=== PATIENT | male | born 1940 | race Caucasian/White ===

== ENCOUNTER 2019-08-24 20:51 | Inpatient (IN) | payer MEDICARE, MEDICAID ==
[~2019-08-24] VITALS: Ht 177.8 cm; Wt 99.4 kg
[~2019-08-24 20:51] MED LIST: ACETAMINOPHEN325 M1 ORAL; COLACE100 MG PO; LITHIUM CARBON150 MG ORAL; MAALOX525 MG/11 PO; MILK OF MA2400 MG/10 PO; MULTIVITAMINS1 EAC6 PO; ZYPREXA10 MG ORAL
[2019-08-24 20:55] VITALS: BP 114/61
--- NOTE | 2019-08-24 20:55 | NUR ---
ED Nurse Note: Patient brought in by ambulance from [facility] d/t fever and decreased oral intake. Patient aao x 4 and ambulatory. Patient temperature at assessment 101.3 F. Established IV line on Left AC 20g. All blood draw sent to lab. Patient changed into gown and placed on alarm security or surveillance monitor. No acute distress noted.
[2019-08-24] MEDS ORDERED: Vancomycin 1.5 GM in NS 275 ML IVPB ONE (21:00)
[2019-08-24] MEDS ORDERED: Cefepime HCl 2 GM in NS 110 ML IV ONE (21:00)
--- NOTE | 2019-08-24 21:18 | NUR ---
ED Nurse Note: Xray at bedside.
--- NOTE | 2019-08-24 21:26 | NUR ---
ED Nurse Note: Started Maxipime. Vancomycin held d/t unknown IV compatibility. Will start vancomycin once maxipime is completed.
--- NOTE | 2019-08-24 21:37 | NUR ---
ED Nurse Note: Upon assessment, patient has left upper arm growth, skin intact. per patient, it's a growth, unknown etiology.
--- NOTE | 2019-08-24 21:40 | NUR ---
ED Nurse Note: Patient provided with urinal. Unable to provide urine sample at this time.
[2019-08-24 21:49] LABS: EOSINOPHILS % (AUTO) 0.7 % (0.0-3.0); HEMATOCRIT 42.2 % (42.0-52.0); HEMOGLOBIN 13.7 G/DL (14.2-18.0); LYMPHOCYTES % (AUTO) 27.6 % (20.0-45.0); MEAN CORPUSCULAR VOLUME 94 FL (80-99); MONOCYTES % (AUTO) 10.9 % (1.0-10.0); NEUTROPHILS % (AUTO) 59.8 % (45.0-75.0); PLATELET COUNT 134 K/UL (150-450); RED BLOOD COUNT 4.47 M/UL (4.70-6.10); WHITE BLOOD COUNT 5.1 K/UL (4.8-10.8)
--- NOTE | 2019-08-24 21:56 | NUR ---
ED Nurse Note: COVID, MRSA, VRE, flu swabs, and urine collected and sent to lab.
--- NOTE | 2019-08-24 22:02 | Diagnostic Imaging Report ---
EXAM: XR Chest, 1 View CLINICAL HISTORY: COUGH TECHNIQUE: Frontal view of the chest. COMPARISON: Chest radiograph dated 09/08/12. FINDINGS: Lungs: There is bibasilar subsegmental atelectasis. No focal consolidation. Pleural space: Unremarkable. No pneumothorax. Heart: Unremarkable. No cardiomegaly. Mediastinum: Unremarkable. Bones/joints: Degenerative changes of the thoracic spine. IMPRESSION: No radiograph evidence of acute cardiac pulmonary disease. Bibasilar subsegmental atelectasis.
[2019-08-24 22:19] LABS: SODIUM 137 MMOL/L (136-145)
--- NOTE | 2019-08-24 22:19 | Emergency Room Report ---
History of Present Illness General Chief Complaint: Fever Source: Patient, Medical Record, EMS, PMD Present Illness HPI This is an 79-year-old [facility] He has a history of hypertension and psychiatric history. He presents with chief plaint of fever. Onset today. He was [facility]. long-term has multiple patient positive for COVID19. He also has a cough and congestion. Denies any other complaint. Patient is very hard of hearing so history is limited. He denies any chest pain. No nausea vomiting or diarrhea. Allergies: Coded Allergies: No Known Allergies (Verified , 06/19/07) COVID-19 Screening Contact w/high risk pt: Yes Recent Travel to affected area: No Experienced COVID-19 symptoms?: Yes COVID-19 symptoms experienced: Fever (T>100.4F or >38C) Patient History Past Medical History: see triage record, old chart reviewed, HTN Past Surgical History: other Pertinent Family History: none Social History: Denies: smoking Immunizations: UTD Reviewed Nursing Documentation: PMH: Agreed; PSxH: Agreed Nursing Documentation-PMH Hx Cardiac Problems: Yes Hx COPD: Yes Hx Diabetes: Yes Hx Cancer: No Hx Gastrointestinal Problems: Yes - Umbilical Hernia Hx Neurological Problems: No Review of Systems Constitutional: Reports: fever Eye: Denies: eye pain, blurred vision ENT: Denies: ear pain, nose congestion, throat swelling Respiratory: Reports: cough, shortness of breath Cardiovascular: Denies: chest pain, palpitations Gastrointestinal: Denies: abdominal pain, diarrhea, nausea, vomiting Musculoskeletal: Denies: back pain, joint pain Skin: Denies: rash Neurological: Denies: headache, numbness Endocrine: Denies: increased thirst, increased urine Hematologic/Lymphatic: Denies: easy bruising All Other Systems: negative except mentioned in HPI Physical Exam Vital Signs Date Time Temp Pulse Resp B/P (MAP) Pulse Ox O2 Delivery O2 Flow Rate FiO2 08/24/19 20:52 100.8 96 20 130/72 (91) 94 Room Air Vitals with fever Sp02 EP Interpretation: reviewed, normal General Appearance: well appearing, no apparent distress, alert Head: normocephalic, atraumatic Eyes: bilateral eye PERRL, bilateral eye EOMI ENT: hearing grossly normal, normal pharynx Neck: full range of motion, supple, no meningismus Respiratory: chest non-tender, lungs clear, normal breath sounds Cardiovascular #1: regular rate, rhythm, no murmur Gastrointestinal: normal bowel sounds, non tender, no mass, no organomegaly, no bruit, non-distended Musculoskeletal: back normal, normal range of motion Neurologic: alert, grossly normal Psychiatric: mood/affect normal Procedures Critical Care Time Critical Care Time Critical care is mandated in this patient who presented with sepsis secondary to UTI and suspected COVID-19 infection. Patient require my urgent intervention to attenuate the risks of metabolic collapse which may lead to cardiovascular collapse and . Critical care time is 35 minutes excluding any reportable procedure. Critical care time included evaluation, multiple reevaluation, looking at old charts, interpreting laboratory and diagnostic data , discussing case with patient and family and consultants, and charting. Medical Decision Making Diagnostic Impression: Primary Impression: Sepsis Qualified Codes: A41.9 - Sepsis, unspecified organism Additional Impressions: UTI (urinary tract infection) Qualified Codes: N30.00 - Acute cystitis without hematuria Suspected 2019 novel coronavirus infection ER Course Patient presents with a fever and mild decrease in oxygenation from baseline. He also have a slight cough. He is from a [facility] that has multiple patient positive for COVID 19 infection. He is at high risk for infection. We also has Viet tract infection. Antibiotics started. Vital signs are stable. Fluids given. Will admit for IV monitoring and further work-up. I discussed the case with Dr. Alvarado for admission. EKG Diagnostic Results Rate: normal Rhythm: NSR ST Segments: no acute changes Rhythm Strip Diag. Results EP Interpretation: yes Rate: 85 Rhythm: NSR, no PVC's, no ectopy Chest X-Ray Diagnostic Results Chest X-Ray Diagnostic Results : Chest X-Ray Ordered: Yes # of Views/Limited/Complete: 1 View Indication: Shortness of Breath EP Interpretation: Yes Interpretation: no effusion, no pneumothorax, no acute cardiopulmonary disease, other - Atelectasis at the bases Impression: Other - atelectasis at bases Electronically Signed by: Aleksey Degroot MD Last Vital Signs Date Time Temp Pulse Resp B/P (MAP) Pulse Ox O2 Delivery O2 Flow Rate FiO2 08/24/19 20:55 101.3 89 19 114/61 93 Room Air Status: improved Disposition: ADMITTED INPATIENT Condition: Serious Aleksey Degroot MD Aug 24, 2019:19
[2019-08-24 22:20] LABS: ALANINE AMINOTRANSFERASE 26 U/L (12-78); ANION GAP 11 mmol/L (5-15); ASPARTATE AMINO TRANSFERASE 21 U/L (15-37); BILIRUBIN,TOTAL 0.4 MG/DL (0.2-1.0); BLOOD UREA NITROGEN 22 mg/dL (7-18); CALCIUM 8.2 MG/DL (8.5-10.1); CARBON DIOXIDE 24 MMOL/L (21-32); CHLORIDE 102 MMOL/L (98-107); CREATINE KINASE 96 U/L (26-308); CREATININE 1.7 MG/DL (0.55-1.30); PHOSPHORUS 3.2 MG/DL (2.5-4.9); POTASSIUM 4.1 MMOL/L (3.5-5.1)
[2019-08-24 22:21] LABS: ALBUMIN 3.2 G/DL (3.4-5.0); ALBUMIN/GLOBULIN RATIO 0.8 (1.0-2.7); ALKALINE PHOSPHATASE 77 U/L (46-116)
[2019-08-24 22:24] LABS: APPEARANCE,URINE CLEAR; BILIRUBIN, URINE NEGATIVE (NEGATIVE); COLOR,URINE YELLOW; GLUCOSE, URINE (UA) NEGATIVE (NEGATIVE); KETONES,URINE NEGATIVE (NEGATIVE); LEUKOCYTE ESTERASE ,URINE 1+ (NEGATIVE); NITRITE,URINE NEGATIVE (NEGATIVE); PH,URINE 5 (4.5-8.0); PROTEIN,URINE 1+ (NEGATIVE); UROBILINOGEN,URINE NORMAL MG/DL (0.0-1.0)
[2019-08-24] MEDS ORDERED: Azithromycin 500 MG in NS 275 ML IV ONE (22:30)
--- NOTE | 2019-08-24 23:20 | Emergency Room Report ---
Sepsis Event Note Evaluation Current Stage of Sepsis: Sepsis Possible Source: Pulmonary, Genitourinary Focused Exam Allergies: Coded Allergies: No Known Allergies (Verified , 06/19/07) Date Exam Occurred: Aug 24, 2019 Time Exam Occurred: 23:20 Laboratory Studies Laboratory Tests Test 08/24/19 21:03 08/24/19 21:48 White Blood Count 5.1 K/UL (4.8-10.8) Red Blood Count 4.47 M/UL (4.70-6.10) L Hemoglobin 13.7 G/DL (14.2-18.0) L Hematocrit 42.2 % (42.0-52.0) Mean Corpuscular Volume 94 FL (80-99) Mean Corpuscular Hemoglobin 30.6 PG (27.0-31.0) Mean Corpuscular Hemoglobin Concent 32.5 G/DL (32.0-36.0) Red Cell Distribution Width 13.0 % (11.6-14.8) Platelet Count 134 K/UL (150-450) L Mean Platelet Volume 9.1 FL (6.5-10.1) Neutrophils (%) (Auto) 59.8 % (45.0-75.0) Lymphocytes (%) (Auto) 27.6 % (20.0-45.0) Monocytes (%) (Auto) 10.9 % (1.0-10.0) H Eosinophils (%) (Auto) 0.7 % (0.0-3.0) Basophils (%) (Auto) 1.0 % (0.0-2.0) Prothrombin Time 10.8 SEC (9.30-11.50) Prothromb Time International Ratio 1.0 (0.9-1.1) Activated Partial Thromboplast Time 30 SEC (23-33) Sodium Level 137 MMOL/L (136-145) Potassium Level 4.1 MMOL/L (3.5-5.1) Chloride Level 102 MMOL/L (98-107) Carbon Dioxide Level 24 MMOL/L (21-32) Anion Gap 11 mmol/L (5-15) Blood Urea Nitrogen 22 mg/dL (7-18) H Creatinine 1.7 MG/DL (0.55-1.30) H Estimat Glomerular Filtration Rate 39.0 mL/min (>60) Glucose Level 189 MG/DL (74-106) H Lactic Acid Level 1.30 mmol/L (0.4-2.0) Calcium Level 8.2 MG/DL (8.5-10.1) L Phosphorus Level 3.2 MG/DL (2.5-4.9) Magnesium Level 1.6 MG/DL (1.8-2.4) L Total Bilirubin 0.4 MG/DL (0.2-1.0) Aspartate Amino Transf (AST/SGOT) 21 U/L (15-37) Alanine Aminotransferase (ALT/SGPT) 26 U/L (12-78) Alkaline Phosphatase 77 U/L (46-116) Total Creatine Kinase 96 U/L (26-308) Troponin I 0.007 ng/mL (0.000-0.056) Pro-B-Type Natriuretic Peptide pg/mL (0-125) Total Protein 7.0 G/DL (6.4-8.2) Albumin 3.2 G/DL (3.4-5.0) L Globulin 3.8 g/dL Albumin/Globulin Ratio 0.8 (1.0-2.7) L Lipase 263 U/L (73-393) Urine Color Yellow Urine Appearance Clear Urine pH 5 (4.5-8.0) Urine Specific [place] 1.020 (1.005-1.035) Urine Protein 1+ (NEGATIVE) H Urine Glucose (UA) Negative (NEGATIVE) Urine Ketones Negative (NEGATIVE) Urine Blood 1+ (NEGATIVE) H Urine Nitrite Negative (NEGATIVE) Urine Bilirubin Negative (NEGATIVE) Urine Urobilinogen Normal MG/DL (0.0-1.0) Urine Leukocyte Esterase 1+ (NEGATIVE) H Urine RBC 0-2 /HPF (0 - 0) H Urine WBC 5-10 /HPF (0 - 0) H Urine Squamous Epithelial Cells Few /LPF (NONE/OCC) Urine Bacteria Moderate /HPF (NONE) H Vital Signs Last 24 Hour Vital Signs Date Time Temp Pulse Resp B/P (MAP) Pulse Ox O2 Delivery O2 Flow Rate FiO2 08/24/19 20:55 101.3 89 19 114/61 93 Room Air 08/24/19 20:52 100.8 96 20 130/72 (91) 94 Room Air Respiratory Exam: Clear Cardiovascular Exam: RRR Capillary Refill: Less Than 2 Seconds Peripheral Pulse: Strong Pulse Location: Radial Skin Exam: Normal Turgor Degroot,Aleksey MD Aug 24, 2019 23:20
--- NOTE | 2019-08-24 23:21 | NUR ---
HAND-OFF: Report given to KILLIAN Loyola. Plan of care endorsed.
--- NOTE | 2019-08-24 23:22 | NUR ---
ED Nurse Note: Received report from Lor DAILY. Pt alert and oriented x4, verbally responsive. Not in any distress. Will cont to monitor.
[2019-08-24] MEDS ORDERED: FLOMAX0.4 MG ORAL (23:39)
[2019-08-24] MEDS ORDERED: PROSCAR5 MG ORAL (23:39)
--- NOTE | 2019-08-24 23:52 | NUR ---
ED Nurse Note: Report given to KILLIAN Elizalde in telemetry.
[2019-08-24 23:55] VITALS: BP 115/68
--- NOTE | 2019-08-24 23:55 | NUR ---
TRANSFER TO FLOOR: Patient transferred to Telemetry. Report given to Fide DAILY. Pt alert and oriented x4, verbally responsive. No SOB. Sinus ryhthm. IV line on left Ac 20g patent and intact. All belongings sent with the patient.
--- NOTE | 2019-08-24 23:59 | Pulmonology Progress Note ---
Assessment/Plan Assessment/Plan Pulmonary Consultation HPI Patient is an 79-year-old man with a past medical history of hypertension and psychiatric illness. Noted to have fever today. His residential has multiple patients positive for COVID19. Patient has noted cough and congestion. Denies any other complaints. He denies any chest pain. No nausea vomiting or diarrhea. Patient is very hard of hearing so history is limited. Allergies: No Known Allergies Past Medical History: Hypertension, COPD, DM, BPH, Umbilical Hernia and Psychiatric illness Pertinent Family History: none Social History: Denies: smoking All Other Systems: negative except mentioned in HPI Physical Exam Vital Signs Noted Date Time Temp Pulse Resp B/P (MAP) Pulse Ox O2 Delivery O2 Flow Rate FiO2 08/24/19 20:52 100.8 96 20 130/72 (91) 94 Room Air General Appearance: well appearing, no apparent distress, alert Head: normocephalic, atraumatic Eyes: bilateral eye PERRL, bilateral eye EOMI ENT: hearing grossly normal, normal pharynx Neck: full range of motion, supple, no meningismus Respiratory: chest non-tender, lungs clear, normal breath sounds Cardiovascular: regular rate, rhythm, no murmur Gastrointestinal: normal bowel sounds, non tender, no mass, no organomegaly, no bruit, non-distended Musculoskeletal: back normal, normal range of motion Neurologic: alert, grossly normal Impression: UTI BPH Sepsis Suspected 2019 novel coronavirus infection COPD HTN DM Psychiatric Illness Plan: IV Antibiotics started. PTAmedications O2 PRN Albuterol PRN PPX Await culturres/viral studies EKG: Rate: normal Rhythm: NSR ST Segments: no acute changes Chest X-Ray: no effusion, no pneumothorax, no acute cardiopulmonary disease, other - Atelectasis at the bases Subjective ROS Limited/Unobtainable: No Constitutional: Reports: fever Allergies: Coded Allergies: No Known Allergies (Verified , 06/19/07) Objective Last 24 Hour Vital Signs Date Time Temp Pulse Resp B/P (MAP) Pulse Ox O2 Delivery O2 Flow Rate FiO2 08/24/19 20:55 101.3 89 19 114/61 93 Room Air 08/24/19 20:52 100.8 96 20 130/72 (91) 94 Room Air Laboratory Tests 08/24/19 21:03: White Blood Count 5.1, Red Blood Count 4.47L, Hemoglobin 13.7L, Hematocrit 42.2 , Mean Corpuscular Volume 94, Mean Corpuscular Hemoglobin 30.6, Mean Corpuscular Hemoglobin Concent 32.5, Red Cell Distribution Width 13.0, Platelet Count 134L, Mean Platelet Volume 9.1, Neutrophils (%) (Auto) 59.8, Lymphocytes ( %) (Auto) 27.6, Monocytes (%) (Auto) 10.9H, Eosinophils (%) (Auto) 0.7, Basophils (%) (Auto) 1.0, Prothrombin Time 10.8, Prothromb Time International Ratio 1.0, Activated Partial Thromboplast Time 30, Sodium Level 137, Potassium Level 4.1, Chloride Level 102, Carbon Dioxide Level 24, Anion Gap 11, Blood Urea Nitrogen 22H, Creatinine 1.7H, Estimat Glomerular Filtration Rate 39.0, Glucose Level 189H, Lactic Acid Level 1.30, Calcium Level 8.2L, Phosphorus Level 3.2, Magnesium Level 1.6L, Total Bilirubin 0.4, Aspartate Amino Transf ( AST/SGOT) 21, Alanine Aminotransferase (ALT/SGPT) 26, Alkaline Phosphatase 77, Total Creatine Kinase 96, Troponin I 0.007, Pro-B-Type Natriuretic Peptide , Total Protein 7.0, Albumin 3.2L, Globulin 3.8, Albumin/Globulin Ratio 0.8L, Lipase 263 08/24/19 21:48: Urine Color Yellow, Urine Appearance Clear, Urine pH 5, Urine Specific [place] 1.020, Urine Protein 1+H, Urine Glucose (UA) Negative, Urine Ketones Negative, Urine Blood 1+H, Urine Nitrite Negative, Urine Bilirubin Negative, Urine Urobilinogen Normal, Urine Leukocyte Esterase 1+H, Urine RBC 0-2H, Urine WBC 5- 10H, Urine Squamous Epithelial Cells Few, Urine Bacteria ModerateH Karthikeyan Morris MD Aug 24, 2019 23:59
[2019-08-25] MEDS ORDERED: Albuterol 90mcg Inhaler 8gm INH PRN (00:15)
[2019-08-25] MEDS: cefTRIAXone 1 GM in D5W 55 ML IVPB SCH (03:08)
[2019-08-25 08:00] VITALS: BP 124/59
--- NOTE | 2019-08-25 08:32 | NUR ---
NURSE NOTES: Received report from Diana Mendoza. Patient is standing in room, on room air, heading toward restroom, in no apparent distress, bed in lowest position, call light in bed.
[2019-08-25] MEDS ORDERED: Enoxaparin 40mg Inj SUBQ SCH ×2 (09:00)
[2019-08-25 10:38] LABS: BASOPHILS % (AUTO) 1.1 % (0.0-2.0); EOSINOPHILS % (AUTO) 0.2 % (0.0-3.0); HEMATOCRIT 39.2 % (42.0-52.0); HEMOGLOBIN 13.4 G/DL (14.2-18.0); LYMPHOCYTES % (AUTO) 17.5 % (20.0-45.0); MEAN CORPUSCULAR VOLUME 91 FL (80-99); MONOCYTES % (AUTO) 10.6 % (1.0-10.0); NEUTROPHILS % (AUTO) 70.6 % (45.0-75.0); PLATELET COUNT 120 K/UL (150-450); RED BLOOD COUNT 4.33 M/UL (4.70-6.10); RED CELL DISTRIBUTION WIDTH 11.6 % (11.6-14.8); WHITE BLOOD COUNT 5.6 K/UL (4.8-10.8)
[2019-08-25 10:51] LABS: ANION GAP 11 mmol/L (5-15); BLOOD UREA NITROGEN 15 mg/dL (7-18); CALCIUM 7.9 MG/DL (8.5-10.1); CARBON DIOXIDE 25 MMOL/L (21-32); CHLORIDE 105 MMOL/L (98-107); CREATININE 1.5 MG/DL (0.55-1.30); POTASSIUM 4.5 MMOL/L (3.5-5.1); SODIUM 140 MMOL/L (136-145)
[2019-08-25] MEDS ORDERED: NS 275ml ONE (11:30)
--- NOTE | 2019-08-25 19:34 | NUR ---
HAND-OFF: Report given to Rojelio Mercado RN. Patient laying on left side, sleeping, side rails up x 3, bed in lowest position, call light witin reach, depressed mood, on room air, saturating at 94%, in no apparent dsitress.
--- NOTE | 2019-08-25 19:35 | NUR ---
NURSE NOTES: Received report from Kyrie RN at tele unit. Pt is calm and comfortable. Patient is refusing tele box. Patient removes the box after RN reconnects the box. Call light is within reach. Bed alarm is on. Rails are up x3. Will continue to follow the plan of care.
[2019-08-25 20:00] VITALS: BP 119/59
--- NOTE | 2019-08-25 20:50 | Consultation ---
History of Present Illness General Chief Complaint: Fever Present Illness Allergies: Coded Allergies: No Known Allergies (Verified , 06/19/07) Medication History Scheduled Docusate Sodium* (Colace*), 200 MG PO DAILY, (Reported) Finasteride* (Proscar*), 5 MG ORAL DAILY, (Reported) Olanzapine* (Zyprexa*), 15 MG ORAL QHS, (Reported) Tamsulosin HCl (Flomax), 0.4 MG ORAL DAILY, (Reported) Scheduled PRN Acetaminophen* (Acetaminophen 325MG Tablet*), 650 MG ORAL Q4HR PRN, (Reported) Magnesium Hydroxide* (Milk Of Magnesia*), 30 ML PO DAILY PRN, (Reported) Discontinued Medications Bismuth Subsalicylate (Maalox), 30 ML PO Q4HR PRN, (Reported) Discontinued Reason: MD discontinued med [place] Carbonate* ([place]*), 150 MG ORAL QHS, (Reported) Discontinued Reason: MD discontinued med Multivitamin (Multivitamins), 1 EACH PO DAILY, (Reported) Discontinued Reason: MD discontinued med Patient History Healthcare decision maker Resuscitation status Full Code Advanced Directive on File Physical Exam Last 24 Hour Vital Signs Date Time Temp Pulse Resp B/P (MAP) Pulse Ox O2 Delivery O2 Flow Rate FiO2 08/25/19 16:00 100 08/25/19 12:00 94 08/25/19 09:00 Room Air 08/25/19 08:00 84 08/25/19 08:00 99.1 91 20 124/59 (80) 93 08/25/19 04:00 102 08/25/19 00:36 Room Air 08/24/19 23:55 101.3 92 18 115/68 95 Room Air 08/24/19 23:55 101.3 92 18 115/68 95 Room Air 08/24/19 23:21 89 19 Room Air 08/24/19 20:55 101.3 89 19 114/61 93 Room Air 08/24/19 20:52 100.8 96 20 130/72 (91) 94 Room Air Intake and Output 08/24/19 08/25/19 19:00 07:00 Intake Total 3445 ml Output Total 1000 ml Balance 2445 ml Intake Oral 400 ml IV Total 3045 ml Output Urine Total 1000 ml # Voids 3 Laboratory Tests Test 08/24/19 21:03 08/24/19 21:48 08/25/19 09:00 White Blood Count 5.1 K/UL (4.8-10.8) 5.6 K/UL (4.8-10.8) Red Blood Count 4.47 M/UL (4.70-6.10) L 4.33 M/UL (4.70-6.10) L Hemoglobin 13.7 G/DL (14.2-18.0) L 13.4 G/DL (14.2-18.0) L Hematocrit 42.2 % (42.0-52.0) 39.2 % (42.0-52.0) L Mean Corpuscular Volume 94 FL (80-99) 91 FL (80-99) Mean Corpuscular Hemoglobin 30.6 PG (27.0-31.0) 30.9 PG (27.0-31.0) Mean Corpuscular Hemoglobin Concent 32.5 G/DL (32.0-36.0) 34.1 G/DL (32.0-36.0) Red Cell Distribution Width 13.0 % (11.6-14.8) 11.6 % (11.6-14.8) Platelet Count 134 K/UL (150-450) L 120 K/UL (150-450) L Mean Platelet Volume 9.1 FL (6.5-10.1) 9.3 FL (6.5-10.1) Neutrophils (%) (Auto) 59.8 % (45.0-75.0) 70.6 % (45.0-75.0) Lymphocytes (%) (Auto) 27.6 % (20.0-45.0) 17.5 % (20.0-45.0) L Monocytes (%) (Auto) 10.9 % (1.0-10.0) H 10.6 % (1.0-10.0) H Eosinophils (%) (Auto) 0.7 % (0.0-3.0) 0.2 % (0.0-3.0) Basophils (%) (Auto) 1.0 % (0.0-2.0) 1.1 % (0.0-2.0) Prothrombin Time 10.8 SEC (9.30-11.50) Prothromb Time International Ratio 1.0 (0.9-1.1) Activated Partial Thromboplast Time 30 SEC (23-33) Sodium Level 137 MMOL/L (136-145) 140 MMOL/L (136-145) Potassium Level 4.1 MMOL/L (3.5-5.1) 4.5 MMOL/L (3.5-5.1) Chloride Level 102 MMOL/L (98-107) 105 MMOL/L (98-107) Carbon Dioxide Level 24 MMOL/L (21-32) 25 MMOL/L (21-32) Anion Gap 11 mmol/L (5-15) 11 mmol/L (5-15) Blood Urea Nitrogen 22 mg/dL (7-18) H 15 mg/dL (7-18) Creatinine 1.7 MG/DL (0.55-1.30) H 1.5 MG/DL (0.55-1.30) H Estimat Glomerular Filtration Rate 39.0 mL/min (>60) 45.0 mL/min (>60) Glucose Level 189 MG/DL (74-106) H 208 MG/DL (74-106) H Lactic Acid Level 1.30 mmol/L (0.4-2.0) Calcium Level 8.2 MG/DL (8.5-10.1) L 7.9 MG/DL (8.5-10.1) L Phosphorus Level 3.2 MG/DL (2.5-4.9) Magnesium Level 1.6 MG/DL (1.8-2.4) L Total Bilirubin 0.4 MG/DL (0.2-1.0) Aspartate Amino Transf (AST/SGOT) 21 U/L (15-37) Alanine Aminotransferase (ALT/SGPT) 26 U/L (12-78) Alkaline Phosphatase 77 U/L (46-116) Total Creatine Kinase 96 U/L (26-308) Troponin I 0.007 ng/mL (0.000-0.056) Pro-B-Type Natriuretic Peptide pg/mL (0-125) Total Protein 7.0 G/DL (6.4-8.2) Albumin 3.2 G/DL (3.4-5.0) L Globulin 3.8 g/dL Albumin/Globulin Ratio 0.8 (1.0-2.7) L Lipase 263 U/L (73-393) Urine Color Yellow Urine Appearance Clear Urine pH 5 (4.5-8.0) Urine Specific [place] 1.020 (1.005-1.035) Urine Protein 1+ (NEGATIVE) H Urine Glucose (UA) Negative (NEGATIVE) Urine Ketones Negative (NEGATIVE) Urine Blood 1+ (NEGATIVE) H Urine Nitrite Negative (NEGATIVE) Urine Bilirubin Negative (NEGATIVE) Urine Urobilinogen Normal MG/DL (0.0-1.0) Urine Leukocyte Esterase 1+ (NEGATIVE) H Urine RBC 0-2 /HPF (0 - 0) H Urine WBC 5-10 /HPF (0 - 0) H Urine Squamous Epithelial Cells Few /LPF (NONE/OCC) Urine Bacteria Moderate /HPF (NONE) H Microbiology Date/Time Source Procedure Growth Status 08/24/19 21:48 Urine,Clean Catch Urine Culture - Preliminary NO GROWTH Resulted Height (Feet): 5 Height (Inches): 10.00 Weight (Pounds): 220 Medications Current Medications Medications (Trade) Dose Ordered Sig/Abilio Route PRN Reason Start Time Stop Time Status Last Admin Dose Admin Acetaminophen (Tylenol) 650 mg EVERY 6 HOURS PRN ORAL Temp >100.5 08/25/19 00:15 09/24/19 00:14 08/25/19 04:32 Albuterol Sulfate (Proventil MDI) 2 puff Q4H PRN INH Shortness of Breath 08/25/19 00:15 11/23/19 00:14 Azithromycin 500 mg/Dextrose 275 ml @ 275 mls/hr Q24HRS IV 08/25/19 22:00 08/31/19 22:59 Ceftriaxone Sodium 1 gm/ Dextrose 55 ml @ 110 mls/hr Q24H IVPB 08/25/19 03:00 09/01/19 02:59 08/25/19 03:08 Enoxaparin Sodium (Lovenox) 40 mg DAILY SUBQ 08/25/19 09:00 11/23/19 08:59 08/25/19 08:48 Fluoxetine HCl (PROzac) 20 mg DAILY ORAL 08/26/19 09:00 09/25/19 08:59 Olanzapine (ZyPREXA) 20 mg BEDTIME ORAL 08/25/19 21:00 10/09/19 20:59 Tamsulosin HCl (Flomax) 0.4 mg QHS ORAL 08/25/19 21:00 09/24/19 20:59 Assessment/Plan Assessment/Plan: Hematology Consultation REQ : Louisa Rojas RFC: Thrombocytopenia ongoing Chief Complaint: Fever Source: Patient, Medical Record, EMS, PMD HPI This is an 79-year-old male from a [place] [facility]. He has a history of hypertension and psychiatric history. He presents with chief plaint of fever. Onset today. He was given Tylenol at the [place] [facility]. longterm has multiple patient positive for COVID19. He also has a cough and congestion. Denies any other complaint. Patient is very hard of hearing so history is limited. He denies any chest pain. No nausea vomiting or diarrhea. At this time, is very weak, most of hx obtained from chart, no significant shortness of breath. Allergies: No Known Allergies (Verified , 06/19/07) COVID-19 Screening Contact w/high risk pt: Yes Recent Travel to affected area: No Experienced COVID-19 symptoms?: Yes COVID-19 symptoms experienced: Fever (T>100.4F or >38C) Patient History Past Medical History: see triage record, old chart reviewed, HTN Past Surgical History: other Pertinent Family History: none Social History: Denies: smoking Immunizations: UTD Reviewed Nursing Documentation: PMH: Agreed; PSxH: Agreed Nursing Documentation-PMH Hx Cardiac Problems: Yes Hx COPD: Yes Hx Diabetes: Yes Hx Cancer: No Hx Gastrointestinal Problems: Yes - Umbilical Hernia Hx Neurological Problems: No ROS Constitutional: Reports: fever Eye: Denies: eye pain, blurred vision ENT: Denies: ear pain, nose congestion, throat swelling Respiratory: Reports: cough, shortness of breath Cardiovascular: Denies: chest pain, palpitations Gastrointestinal: Denies: abdominal pain, diarrhea, nausea, vomiting Musculoskeletal: Denies: back pain, joint pain Skin: Denies: rash Neurological: Denies: headache, numbness Endocrine: Denies: increased thirst, increased urine Hematologic/Lymphatic: Denies: easy bruising All Other Systems: negative except mentioned in HPI Physical Exam: Vitals: reviewed General: NAD HEENT: nc, at Neck: supple Chest: clear breath sounds bilaterally Cardiovascular: RRR, no s3, s4 Abdomen: soft, nontender, nd Extremities: no cce, normal range of motion Neuro: alert and oriented Labs: noted Imaging: reviewed Assessment and Recs: # Thrombocytopenia - potential causes multifactorial, evaluate liver and viral etiologies to begin, also could be related to underlying medications patient has received. --> Hep panel and HIV ordered --> US abd to evaluate for cirrhosis and hsm ordered --> Peripheral smear ordered to evaluate for blasts /schistocytes --> abx and other meds have been reviewed --> ok for ppx if plt >50k w/ either heparin or lovenox --> Transfuse if Plt < 20k and fever, or if Plt < 10k without fever -> plt trend 134-->120k # Anemia due to chronic disease --> trend as needed hgb 13 --> no evidence of hemolysis is noted # Sepsis r/o infection --> abx as needed # UTI (urinary tract infection) --> id eval # Suspected 2019 novel coronavirus infection --> abx, per id, o2,duonebs The timing of this note does not necessarily reflect the time of the patient was seen. Greatly appreciate consultation. Anival Peñaloza MD Aug 25, 2019 20:50
[2019-08-25] MEDS ORDERED: Azithromycin 500 MG in D5W 275 ML IV SCH (22:00)
--- NOTE | 2019-08-25 22:00 | Pulmonology Progress Note ---
Assessment/Plan Assessment/Plan Pulmonary Progress Note HPI Patient is an 79-year-old man with a past medical history of hypertension and psychiatric illness. Noted to have fever today. His longterm has multiple patients positive for COVID19. Patient has noted cough and congestion. Denies any other complaints. He denies any chest pain. No nausea vomiting or diarrhea. Patient is very hard of hearing so history is limited. Allergies: No Known Allergies Past Medical History: Hypertension, COPD, DM, BPH, Umbilical Hernia and Psychiatric illness Pertinent Family History: none Social History: Denies: smoking All Other Systems: negative except mentioned in HPI Physical Exam Vital Signs Noted General Appearance: well appearing, no apparent distress, alert Head: normocephalic, atraumatic Eyes: bilateral eye PERRL, bilateral eye EOMI ENT: hearing grossly normal, normal pharynx Neck: full range of motion, supple, no meningismus Respiratory: chest non-tender, lungs clear, normal breath sounds Cardiovascular: regular rate, rhythm, no murmur Gastrointestinal: normal bowel sounds, non tender, no mass, no organomegaly, no bruit, non-distended Musculoskeletal: back normal, normal range of motion Neurologic: alert, grossly normal Impression: UTI BPH Sepsis Suspected 2019 novel coronavirus infection COPD HTN DM Psychiatric Illness Plan: IV Antibiotics started. PTAmedications O2 PRN Albuterol PRN PPX Await cultures/viral studies EKG: Rate: normal Rhythm: NSR ST Segments: no acute changes Chest X-Ray: no effusion, no pneumothorax, no acute cardiopulmonary disease, other - Atelectasis at the bases Subjective ROS Limited/Unobtainable: No Allergies: Coded Allergies: No Known Allergies (Verified , 06/19/07) Objective Last 24 Hour Vital Signs Date Time Temp Pulse Resp B/P (MAP) Pulse Ox O2 Delivery O2 Flow Rate FiO2 08/25/19 16:00 100 08/25/19 12:00 94 08/25/19 09:00 Room Air 08/25/19 08:00 84 08/25/19 08:00 99.1 91 20 124/59 (80) 93 08/25/19 04:00 102 08/25/19 00:36 Room Air 08/24/19 23:55 101.3 92 18 115/68 95 Room Air 08/24/19 23:55 101.3 92 18 115/68 95 Room Air 08/24/19 23:21 89 19 Room Air Intake and Output 08/24/19 08/25/19 19:00 07:00 Intake Total 3445 ml Output Total 1000 ml Balance 2445 ml Intake Oral 400 ml IV Total 3045 ml Output Urine Total 1000 ml # Voids 3 Microbiology Date/Time Source Procedure Growth Status 08/24/19 21:48 Urine,Clean Catch Urine Culture - Preliminary NO GROWTH Resulted Laboratory Tests 08/25/19 09:00: White Blood Count 5.6, Red Blood Count 4.33L, Hemoglobin 13.4L, Hematocrit 39.2L , Mean Corpuscular Volume 91, Mean Corpuscular Hemoglobin 30.9, Mean Corpuscular Hemoglobin Concent 34.1, Red Cell Distribution Width 11.6, Platelet Count 120L, Mean Platelet Volume 9.3, Neutrophils (%) (Auto) 70.6, Lymphocytes ( %) (Auto) 17.5L, Monocytes (%) (Auto) 10.6H, Eosinophils (%) (Auto) 0.2, Basophils (%) (Auto) 1.1, Sodium Level 140, Potassium Level 4.5, Chloride Level 105, Carbon Dioxide Level 25, Anion Gap 11, Blood Urea Nitrogen 15, Creatinine 1.5H, Estimat Glomerular Filtration Rate 45.0, Glucose Level 208H, Calcium Level 7.9L Current Medications Medications (Trade) Dose Ordered Sig/Abilio Route PRN Reason Start Time Stop Time Status Last Admin Dose Admin Acetaminophen (Tylenol) 650 mg EVERY 6 HOURS PRN ORAL Temp >100.5 08/25/19 00:15 09/24/19 00:14 08/25/19 04:32 Albuterol Sulfate (Proventil MDI) 2 puff Q4H PRN INH Shortness of Breath 08/25/19 00:15 11/23/19 00:14 Azithromycin 500 mg/Dextrose 275 ml @ 275 mls/hr Q24HRS IV 08/25/19 22:00 08/31/19 22:59 Ceftriaxone Sodium 1 gm/ Dextrose 55 ml @ 110 mls/hr Q24H IVPB 08/25/19 03:00 09/01/19 02:59 08/25/19 03:08 Enoxaparin Sodium (Lovenox) 40 mg DAILY SUBQ 08/25/19 09:00 11/23/19 08:59 08/25/19 08:48 Fluoxetine HCl (PROzac) 20 mg DAILY ORAL 08/26/19 09:00 09/25/19 08:59 Olanzapine (ZyPREXA) 20 mg BEDTIME ORAL 08/25/19 21:00 10/09/19 20:59 Tamsulosin HCl (Flomax) 0.4 mg QHS ORAL 08/25/19 21:00 09/24/19 20:59 Karthikeyan Morris MD Aug 25, 2019 22:00
[2019-08-25] MEDS: OLANZapine 10mg tab ORAL SCH (22:18)
[2019-08-25] MEDS: Tamsulosin 0.4mg cap ORAL SCH (22:18)
--- NOTE | 2019-08-25 23:00 | Consultation ---
DATE OF CONSULTATION: 08/25/2019 INFECTIOUS DISEASES CONSULTATION CONSULTING PHYSICIAN: Toni Cooln MD. PRIMARY ATTENDING PHYSICIAN: Louisa Aburto MD. REASON FOR CONSULTATION: Suspected COVID-19 disease, fever. HISTORY OF PRESENT ILLNESS: The patient is an 79-year-old white male admitted yesterday from a nursing facility because of fever, cough, congestion. The patient had fever of up to 101.3 in the hospital. PAST MEDICAL HISTORY: Significant for obesity, psychiatric problem, gastroesophageal reflux disease. ALLERGIES: No known drug allergies. MEDICATIONS: Getting azithromycin, Flomax, enoxaparin, ceftriaxone, Tylenol, albuterol. SOCIAL HISTORY: Denies smoking. Single. REVIEW OF SYSTEMS: Very limited. The patient is uncooperative and does not want to answer questions. PHYSICAL EXAMINATION: VITAL SIGNS: Current temperature 99.1, pulse 84, blood pressure 124/59. GENERAL APPEARANCE: No acute distress, well developed, obese. HEART: Normal rate. LUNGS: Clear. ABDOMEN: Obese and soft. EXTREMITIES: No edema. NEUROLOGIC: Awake, alert, verbal, has depressed mood. LABORATORY AND DIAGNOSTIC DATA: WBC 5.6, hemoglobin 13.4, hematocrit 39.2, and platelets 120. He has slight lymphocytopenia today. UA showed wbc's of 5 to 10, leukocyte esterase 1+. Urine culture so far negative. Chest x-ray showed no acute cardiopulmonary disease, subsegmental atelectasis. IMPRESSION: 1. Fever and coughing, we will try to rule out COVID-19. 2. Pyuria, may have UTI. 3. BPH. 4. Hypertension. 5. Obesity. RECOMMENDATION: Continue with ceftriaxone. We will follow up the cultures and COVID-19 tests. At the end of my exam, I thank Dr. Aburto, for involving me in the care of this patient. Toni Colon M.D. DR: Nirmal JOB#: [id number] CC:
[2019-08-26] VITALS: BP 122/62
--- NOTE | 2019-08-26 01:30 | History and Physical Report ---
DATE OF ADMISSION: 08/24/2019 HISTORY OF PRESENT ILLNESS: The patient is very poor historian, has advanced psychosis, history of UTI and suspected COVID. Fever of 103 at the intermediate. The patient also had cough and is admitted for sepsis as well. The patient again is a poor historian, cannot get any history, but patient does complain of shortness of breath and cough. The patient also comes from a intermediate that has multiple cases of positive COVID. Denies any chills. Denies headache. Denies sore throat. PAST MEDICAL HISTORY: Schizophrenia, history of COPD, history of diabetes, history of hernia, constipation, and BPH. PAST SURGICAL HISTORY: None. SOCIAL HISTORY: He has history of smoking, but denies history of alcohol or drugs, comes from a intermediate. ALLERGIES: No known allergies. MEDICATIONS: Finasteride, olanzapine, Flomax and Colace. REVIEW OF SYSTEMS: HEENT: Denies headaches. RESPIRATORY: Reports shortness of breath and cough . CARDIOVASCULAR: Denies chest pain or orthopnea. GASTROINTESTINAL: Denies nausea, vomiting, or diarrhea. EXTREMITIES: Denies pain. Denies any speech pattern. PHYSICAL EXAMINATION: VITAL SIGNS: Temperature 99.1, pulse is 84, blood pressure 124/59. HEENT: PERRLA. NECK: Supple. CHEST: Clear to auscultation. CARDIOVASCULAR: Regular rate and rhythm. No murmurs or extra sounds. GASTROINTESTINAL: Soft, nontender, nondistended. No organomegaly. Moves extremities. Reflexes equal in both sides. LABORATORY DATA: WBC of 5.1, hemoglobin 13.7, platelet 134,000. Sodium 137, potassium 4.1, BUN of 22, creatinine 1.7, glucose of 189. ASSESSMENT AND PLAN: Respiratory insufficiency, urinary tract infection. I suspect COVID pneumonia, had fever at the intermediate. The patient also has a psychiatric history. I have consulted Dr. Colon, Dr. Morris, and Dr. Hernández to help with the management of the above-mentioned abnormalities symptoms and abnormal laboratory values. Louisa Aburto M.D. DR: FLOWER JOB#: [id number] CC:
--- NOTE | 2019-08-26 01:59 | Consultation ---
DATE OF CONSULTATION: HISTORY OF PRESENT ILLNESS: This is an 79-year-old male with a history of schizoaffective disorder, hypertension, who has been admitted to the hospital to rule out COVID-19, apparently at his facility [facility] many people have been infected. The patient has been expressing more depression and stated he wants to . He does not have any intention to end his life, however, wishes that he was . The patient is not having any plan or intention. He is having no family, no friends, and he is self responsible. He is able to answer the questions and is not confused. He is not endorsing any auditory or visual hallucination at the facility. He has been taking Zyprexa 15 mg at bedtime. PAST PSYCHIATRIC HISTORY: Schizoaffective disorder, history of psychiatric hospitalizations. PAST MEDICAL HISTORY: Significant for hypertension. ALLERGIES: No known drug allergies. SUBSTANCE ABUSE HISTORY: No known history of illicit drug use or alcohol. MENTAL STATUS EXAMINATION: The patient is alert and oriented to time, self, place, situation. Mood is depressed. Affect is constricted. Congruent mood. Thought process is concrete. Thought content, no suicidal or homicidal ideation. Cognition is intact. Insight and judgment is limited. ASSESSMENT: AXIS I: Schizoaffective disorder, depressed type. AXIS II: Deferred. AXIS III: As above. AXIS IV: Low to moderate. AXIS V: 50. PLAN: 1. Start the patient on Prozac 20 mg in the morning. 2. Zyprexa, will be increased to 20 h.s. 3. We will continue to follow and readjust the medications. Aryan Hernández M.D. DR: ANTONIO JOB#: [id number] CC:
[2019-08-26] MEDS: cefTRIAXone 1 GM in D5W 55 ML IVPB SCH (03:10)
[2019-08-26 04:00] VITALS: BP 131/66
--- NOTE | 2019-08-26 06:37 | Hematology/Onc Progress Note ---
Assessment/Plan Assessment/Plan Assessment and Recs: # Thrombocytopenia - potential causes multifactorial, evaluate liver and viral etiologies to begin, also could be related to underlying medications patient has received. --> Hep panel and HIV ordered --> US abd to evaluate for cirrhosis and hsm ordered --> Peripheral smear ordered to evaluate for blasts /schistocytes --> abx and other meds have been reviewed --> ok for ppx if plt >50k w/ either heparin or lovenox --> Transfuse if Plt < 20k and fever, or if Plt < 10k without fever -> plt trend 134-->120k # Anemia due to chronic disease --> trend as needed hgb 13 --> no evidence of hemolysis is noted # Sepsis r/o infection --> abx as needed # UTI (urinary tract infection) --> id eval # Suspected 2019 novel coronavirus infection --> abx, per id, o2,duonebs The timing of this note does not necessarily reflect the time of the patient was seen. Greatly appreciate consultation. Subjective Constitutional: Denies: no symptoms, chills, fever, malaise, weakness, other HEENT: Denies: no symptoms, eye pain, blurred vision, tearing, double vision, ear pain, ear discharge, nose pain, nose congestion, throat pain, throat swelling, mouth pain, mouth swelling, other Cardiovascular: Denies: no symptoms, chest pain, edema, irregular heart rate, lightheadedness, palpitations, syncope, other Respiratory: Denies: no symptoms, cough, shortness of breath, SOB with excertion, SOB at rest, sputum, wheezing, other Genitourinary: Denies: no symptoms, burning, discharge, frequency, flank pain, hematuria, incontinence, pain, urgency, other Neurologic/Psychiatric: Denies: no symptoms, anxiety, depressed, emotional problems, headache, numbness, paresthesia, pre-existing deficit, seizure, tingling, tremors, weakness, other Endocrine: Denies: no symptoms, excessive sweating, flushing, intolerance to cold, intolerance to heat, increased hunger, increased thirst, increased urine, unexplained weight gain, unexplained weight loss, other Hematologic/Lymphatic: Denies: no symptoms, anemia, easy bleeding, easy bruising, adenopathy, other Allergies: Coded Allergies: No Known Allergies (Verified , 06/19/07) Subjective 08/25 labs noted, cbc is pending from am, lower fever Objective Objective Current Medications Medications (Trade) Dose Ordered Sig/Abilio Route PRN Reason Start Time Stop Time Status Last Admin Dose Admin Acetaminophen (Tylenol) 650 mg EVERY 6 HOURS PRN ORAL Temp >100.5 08/25/19 00:15 09/24/19 00:14 08/25/19 04:32 Albuterol Sulfate (Proventil MDI) 2 puff Q4H PRN INH Shortness of Breath 08/25/19 00:15 11/23/19 00:14 Azithromycin 500 mg/Dextrose 275 ml @ 275 mls/hr Q24HRS IV 08/25/19 22:00 08/31/19 22:59 08/25/19 22:19 Ceftriaxone Sodium 1 gm/ Dextrose 55 ml @ 110 mls/hr Q24H IVPB 08/25/19 03:00 09/01/19 02:59 08/26/19 03:10 Enoxaparin Sodium (Lovenox) 40 mg DAILY SUBQ 08/25/19 09:00 11/23/19 08:59 08/25/19 08:48 Fluoxetine HCl (PROzac) 20 mg DAILY ORAL 08/26/19 09:00 09/25/19 08:59 Olanzapine (ZyPREXA) 20 mg BEDTIME ORAL 08/25/19 21:00 10/09/19 20:59 08/25/19 22:18 Tamsulosin HCl (Flomax) 0.4 mg QHS ORAL 08/25/19 21:00 09/24/19 20:59 08/25/19 22:18 Last 24 Hour Vital Signs Date Time Temp Pulse Resp B/P (MAP) Pulse Ox O2 Delivery O2 Flow Rate FiO2 08/26/19 04:00 87 08/26/19 04:00 98.4 86 20 131/66 (87) 96 08/26/19 00:00 98.6 81 20 122/62 (82) 94 08/26/19 00:00 96 08/25/19 21:00 Room Air 08/25/19 20:00 98.3 93 20 119/59 (79) 93 08/25/19 16:00 100 08/25/19 12:00 94 08/25/19 09:00 Room Air 08/25/19 08:00 84 4/19/20 08:00 99.1 91 20 124/59 (80) 93 08/25/19 04:00 102 08/25/19 00:36 Room Air 08/24/19 23:55 101.3 92 18 115/68 95 Room Air 08/24/19 23:55 101.3 92 18 115/68 95 Room Air 08/24/19 23:21 89 19 Room Air 08/24/19 20:55 101.3 89 19 114/61 93 Room Air 08/24/19 20:52 100.8 96 20 130/72 (91) 94 Room Air Intake and Output 08/25/19 08/26/19 19:00 07:00 Intake Total 975 ml Balance 975 ml Intake Oral 975 ml # Voids 5 # Bowel Movements 1 Labs Test 08/24/19 21:03 08/24/19 21:48 08/25/19 09:00 White Blood Count 5.1 K/UL (4.8-10.8) 5.6 K/UL (4.8-10.8) Red Blood Count 4.47 M/UL (4.70-6.10) 4.33 M/UL (4.70-6.10) Hemoglobin 13.7 G/DL (14.2-18.0) 13.4 G/DL (14.2-18.0) Hematocrit 42.2 % (42.0-52.0) 39.2 % (42.0-52.0) Mean Corpuscular Volume 94 FL (80-99) 91 FL (80-99) Mean Corpuscular Hemoglobin 30.6 PG (27.0-31.0) 30.9 PG (27.0-31.0) Mean Corpuscular Hemoglobin Concent 32.5 G/DL (32.0-36.0) 34.1 G/DL (32.0-36.0) Red Cell Distribution Width 13.0 % (11.6-14.8) 11.6 % (11.6-14.8) Platelet Count 134 K/UL (150-450) 120 K/UL (150-450) Mean Platelet Volume 9.1 FL (6.5-10.1) 9.3 FL (6.5-10.1) Neutrophils (%) (Auto) 59.8 % (45.0-75.0) 70.6 % (45.0-75.0) Lymphocytes (%) (Auto) 27.6 % (20.0-45.0) 17.5 % (20.0-45.0) Monocytes (%) (Auto) 10.9 % (1.0-10.0) 10.6 % (1.0-10.0) Eosinophils (%) (Auto) 0.7 % (0.0-3.0) 0.2 % (0.0-3.0) Basophils (%) (Auto) 1.0 % (0.0-2.0) 1.1 % (0.0-2.0) Prothrombin Time 10.8 SEC (9.30-11.50) Prothromb Time International Ratio 1.0 (0.9-1.1) Activated Partial Thromboplast Time 30 SEC (23-33) Sodium Level 137 MMOL/L (136-145) 140 MMOL/L (136-145) Potassium Level 4.1 MMOL/L (3.5-5.1) 4.5 MMOL/L (3.5-5.1) Chloride Level 102 MMOL/L (98-107) 105 MMOL/L (98-107) Carbon Dioxide Level 24 MMOL/L (21-32) 25 MMOL/L (21-32) Anion Gap 11 mmol/L (5-15) 11 mmol/L (5-15) Blood Urea Nitrogen 22 mg/dL (7-18) 15 mg/dL (7-18) Creatinine 1.7 MG/DL (0.55-1.30) 1.5 MG/DL (0.55-1.30) Estimat Glomerular Filtration Rate 39.0 mL/min (>60) 45.0 mL/min (>60) Glucose Level 189 MG/DL (74-106) 208 MG/DL (74-106) Lactic Acid Level 1.30 mmol/L (0.4-2.0) Calcium Level 8.2 MG/DL (8.5-10.1) 7.9 MG/DL (8.5-10.1) Phosphorus Level 3.2 MG/DL (2.5-4.9) Magnesium Level 1.6 MG/DL (1.8-2.4) Total Bilirubin 0.4 MG/DL (0.2-1.0) Aspartate Amino Transf (AST/SGOT) 21 U/L (15-37) Alanine Aminotransferase (ALT/SGPT) 26 U/L (12-78) Alkaline Phosphatase 77 U/L (46-116) Total Creatine Kinase 96 U/L (26-308) Troponin I 0.007 ng/mL (0.000-0.056) Pro-B-Type Natriuretic Peptide pg/mL (0-125) Total Protein 7.0 G/DL (6.4-8.2) Albumin 3.2 G/DL (3.4-5.0) Globulin 3.8 g/dL Albumin/Globulin Ratio 0.8 (1.0-2.7) Lipase 263 U/L (73-393) Urine Color Yellow Urine Appearance Clear Urine pH 5 (4.5-8.0) Urine Specific [place] 1.020 (1.005-1.035) Urine Protein 1+ (NEGATIVE) Urine Glucose (UA) Negative (NEGATIVE) Urine Ketones Negative (NEGATIVE) Urine Blood 1+ (NEGATIVE) Urine Nitrite Negative (NEGATIVE) Urine Bilirubin Negative (NEGATIVE) Urine Urobilinogen Normal MG/DL (0.0-1.0) Urine Leukocyte Esterase 1+ (NEGATIVE) Urine RBC 0-2 /HPF (0 - 0) Urine WBC 5-10 /HPF (0 - 0) Urine Squamous Epithelial Cells Few /LPF (NONE/OCC) Urine Bacteria Moderate /HPF (NONE) Height (Feet): 5 Height (Inches): 10.00 Weight (Pounds): 220 Objective Vitals: reviewed General: NAD HEENT: nc, at Neck: supple Chest: clear breath sounds bilaterally Cardiovascular: RRR, no s3, s4 Abdomen: soft, nontender, nd Extremities: no cce, normal range of motion Neuro: alert and oriented Anival Peñaloza MD Aug 26, 2019 06:37
[2019-08-26 07:24] LABS: EOSINOPHILS % (AUTO) 0.5 % (0.0-3.0); HEMATOCRIT 39.9 % (42.0-52.0); HEMOGLOBIN 13.8 G/DL (14.2-18.0); LYMPHOCYTES % (AUTO) 30.7 % (20.0-45.0); MEAN CORPUSCULAR VOLUME 89 FL (80-99); MONOCYTES % (AUTO) 12.4 % (1.0-10.0); NEUTROPHILS % (AUTO) 55.4 % (45.0-75.0); PLATELET COUNT 133 K/UL (150-450); RED BLOOD COUNT 4.46 M/UL (4.70-6.10); RED CELL DISTRIBUTION WIDTH 11.5 % (11.6-14.8); WHITE BLOOD COUNT 4.8 K/UL (4.8-10.8)
--- NOTE | 2019-08-26 07:30 | NUR ---
NURSE NOTES:Handoff received from KILLIAN Serrato. Patient received awake and alert and resting in bed, no acute signs of distress noted. Patient has L FA IV site clean dry and intact, saline locked. Bed in the low and locked position with call light within reach. Patient is on room air and contact + droplet precaution as Covid result still pending. Will continue to monitor patient.
[2019-08-26 07:47] LABS: ANION GAP 12 mmol/L (5-15); BLOOD UREA NITROGEN 14 mg/dL (7-18); CARBON DIOXIDE 22 MMOL/L (21-32); CHLORIDE 104 MMOL/L (98-107); CREATININE 1.3 MG/DL (0.55-1.30); SODIUM 138 MMOL/L (136-145)
--- NOTE | 2019-08-26 07:50 | NUR ---
HAND-OFF: Report given to Trevor DAILY.
[2019-08-26 08:00] VITALS: BP 123/67
--- NOTE | 2019-08-26 10:38 | NUR ---
NURSE NOTES: Contacted Dr Morris as patient has Lovenox scheduled and platelets are below 150,000 MD gave parameter to hold Lovenox if Platelets below 100 Up dated this to show on Emar.
[2019-08-26] MEDS: Enoxaparin 40mg Inj SUBQ SCH (11:01)
--- NOTE | 2019-08-26 11:06 | NUR ---
CASE MANAGEMENT:REVIEW 79 YR OLD MALE BIBA FROM [facility] CC: FEVER SI: SEPSIS. UTI. SUSPECTED COVID 19 101.3 96 20 130/72 94% ON RA BUN+22 CR+1.7 IS: IV VANCOMYCIN IV CEFEPIME IV AZITHROMYCIN 1L NS BOLUS CHEST XRAY BLOOD CX : TO TELEMETRY 08/26/19 SI: SEPSIS. POSSIBLE COVID 19 99.9 98 19 123/67 95% ON RA PLT-133 GLUCOSE+128 CA-8.0 IS: IV ROCEPHIN Q24 IV AZITHROMYCIN Q24 LOVENOX SQ QD FLOMAX PO QHS ZYPREXA PO QHS : TELEMETRY STATUS DCP: FROM [facility] PLAN: COVID 19 RESULTS PENDING
[2019-08-26 12:00] VITALS: BP 120/67
--- NOTE | 2019-08-26 12:05 | Infectious Diseases Prog Note ---
Assessment/Plan Assessment/Plan IMPRESSION: 1. Fever and coughing, we will try to rule out COVID-19. 2. Pyuria, may have UTI. 3. BPH. 4. Hypertension. 5. Obesity. 6. Schizoaffective disorder, depressive type RECOMMENDATION: Continue with ceftriaxone & Zithromax. We will follow up the cultures and COVID-19 tests. Subjective ROS Limited/Unobtainable: Yes Constitutional: Denies: fever Respiratory: Reports: no symptoms Allergies: Coded Allergies: No Known Allergies (Verified , 06/19/07) Objective Vital Signs Last 24 Hour Vital Signs Date Time Temp Pulse Resp B/P (MAP) Pulse Ox O2 Delivery O2 Flow Rate FiO2 08/26/19 09:00 Room Air 08/26/19 08:00 99.9 98 19 123/67 (85) 95 08/26/19 04:00 87 08/26/19 04:00 98.4 86 20 131/66 (87) 96 08/26/19 00:00 98.6 81 20 122/62 (82) 94 08/26/19 00:00 96 08/25/19 21:00 Room Air 08/25/19 20:00 98.3 93 20 119/59 (79) 93 08/25/19 16:00 100 Height (Feet): 5 Height (Inches): 10.00 Weight (Pounds): 220 General Appearance: no acute distress HEENT: mucous membranes moist Respiratory/Chest: lungs clear Cardiovascular: normal rate Abdomen: soft, non tender Extremities: no edema Neurologic/Psychiatric: alert, oriented x 3, responsive Microbiology Date/Time Source Procedure Growth Status 08/24/19 21:03 Blood Blood Culture - Preliminary NO GROWTH AFTER 24 HOURS Resulted 08/24/19 20:45 Blood Blood Culture - Preliminary NO GROWTH AFTER 24 HOURS Resulted 08/24/19 21:48 Urine,Clean Catch Urine Culture - Preliminary Resulted Laboratory Tests Test 08/26/19 06:24 White Blood Count 4.8 K/UL (4.8-10.8) Red Blood Count 4.46 M/UL (4.70-6.10) L Hemoglobin 13.8 G/DL (14.2-18.0) L Hematocrit 39.9 % (42.0-52.0) L Mean Corpuscular Volume 89 FL (80-99) Mean Corpuscular Hemoglobin 30.9 PG (27.0-31.0) Mean Corpuscular Hemoglobin Concent 34.6 G/DL (32.0-36.0) Red Cell Distribution Width 11.5 % (11.6-14.8) L Platelet Count 133 K/UL (150-450) L Mean Platelet Volume 8.1 FL (6.5-10.1) Neutrophils (%) (Auto) 55.4 % (45.0-75.0) Lymphocytes (%) (Auto) 30.7 % (20.0-45.0) Monocytes (%) (Auto) 12.4 % (1.0-10.0) H Eosinophils (%) (Auto) 0.5 % (0.0-3.0) Basophils (%) (Auto) 1.0 % (0.0-2.0) Sodium Level 138 MMOL/L (136-145) Potassium Level 4.0 MMOL/L (3.5-5.1) Chloride Level 104 MMOL/L (98-107) Carbon Dioxide Level 22 MMOL/L (21-32) Anion Gap 12 mmol/L (5-15) Blood Urea Nitrogen 14 mg/dL (7-18) Creatinine 1.3 MG/DL (0.55-1.30) Estimat Glomerular Filtration Rate 53.1 mL/min (>60) Glucose Level 128 MG/DL (74-106) H Calcium Level 8.0 MG/DL (8.5-10.1) L Hepatitis A IgM Antibody Pending Hepatitis B Surface Antigen Pending Hepatitis B Core IgM Antibody Pending Hepatitis C Antibody Pending HIV (1&2) Antibody Rapid Negative (NEGATIVE) Current Medications Medications (Trade) Dose Ordered Sig/Abilio Route PRN Reason Start Time Stop Time Status Last Admin Dose Admin Acetaminophen (Tylenol) 650 mg EVERY 6 HOURS PRN ORAL Temp >100.5 08/25/19 00:15 09/24/19 00:14 08/25/19 04:32 Albuterol Sulfate (Proventil MDI) 2 puff Q4H PRN INH Shortness of Breath 08/25/19 00:15 11/23/19 00:14 Azithromycin 500 mg/Dextrose 275 ml @ 275 mls/hr Q24HRS IV 08/25/19 22:00 08/31/19 22:59 08/25/19 22:19 Ceftriaxone Sodium 1 gm/ Dextrose 55 ml @ 110 mls/hr Q24H IVPB 08/25/19 03:00 09/01/19 02:59 08/26/19 03:10 Enoxaparin Sodium (Lovenox) 40 mg DAILY SUBQ 08/26/19 11:00 11/24/19 10:59 08/26/19 11:01 Fluoxetine HCl (PROzac) 20 mg DAILY ORAL 08/26/19 09:00 09/25/19 08:59 08/26/19 11:02 Olanzapine (ZyPREXA) 20 mg BEDTIME ORAL 08/25/19 21:00 10/09/19 20:59 08/25/19 22:18 Tamsulosin HCl (Flomax) 0.4 mg QHS ORAL 08/25/19 21:00 09/24/19 20:59 08/25/19 22:18 Toni Colon MD Aug 26, 2019 12:05
--- NOTE | 2019-08-26 13:18 | NUR ---
NURSE NOTES:Patient does not have IV access, patient stated it must have come out. I attempted to put an IV but patient stated he does not want an IV nor does he want any IV antibiotics. Contacted Funmi Colon to inform him. Funmi Colon gave TO/RB order to discontinue Rocephin and Azithromycin IV and start patient on Levofloxacin PO 500mg daily.
--- NOTE | 2019-08-26 13:29 | NUR ---
DISCHARGE PLANNING PATIENT IS FROM [facility] 19 RESULTS PENDING
--- NOTE | 2019-08-26 15:46 | Cardiac Electrophysiology PN ---
Subjective Subjective [id number] Objective Last 24 Hour Vital Signs Date Time Temp Pulse Resp B/P (MAP) Pulse Ox O2 Delivery O2 Flow Rate FiO2 08/26/19 12:00 99 08/26/19 12:00 98.2 92 20 120/67 (84) 94 08/26/19 09:00 Room Air 08/26/19 08:00 99.9 98 19 123/67 (85) 95 08/26/19 04:00 87 08/26/19 04:00 98.4 86 20 131/66 (87) 96 08/26/19 00:00 98.6 81 20 122/62 (82) 94 08/26/19 00:00 96 08/25/19 21:00 Room Air 08/25/19 20:00 98.3 93 20 119/59 (79) 93 08/25/19 16:00 100 Intake and Output 08/25/19 08/26/19 19:00 07:00 Intake Total 975 ml 500 ml Output Total 700 ml Balance 975 ml -200 ml Intake Oral 975 ml 500 ml Output Urine Total 700 ml # Voids 5 # Bowel Movements 1 Laboratory Tests Test 08/26/19 06:24 White Blood Count 4.8 K/UL (4.8-10.8) Red Blood Count 4.46 M/UL (4.70-6.10) L Hemoglobin 13.8 G/DL (14.2-18.0) L Hematocrit 39.9 % (42.0-52.0) L Mean Corpuscular Volume 89 FL (80-99) Mean Corpuscular Hemoglobin 30.9 PG (27.0-31.0) Mean Corpuscular Hemoglobin Concent 34.6 G/DL (32.0-36.0) Red Cell Distribution Width 11.5 % (11.6-14.8) L Platelet Count 133 K/UL (150-450) L Mean Platelet Volume 8.1 FL (6.5-10.1) Neutrophils (%) (Auto) 55.4 % (45.0-75.0) Lymphocytes (%) (Auto) 30.7 % (20.0-45.0) Monocytes (%) (Auto) 12.4 % (1.0-10.0) H Eosinophils (%) (Auto) 0.5 % (0.0-3.0) Basophils (%) (Auto) 1.0 % (0.0-2.0) Sodium Level 138 MMOL/L (136-145) Potassium Level 4.0 MMOL/L (3.5-5.1) Chloride Level 104 MMOL/L (98-107) Carbon Dioxide Level 22 MMOL/L (21-32) Anion Gap 12 mmol/L (5-15) Blood Urea Nitrogen 14 mg/dL (7-18) Creatinine 1.3 MG/DL (0.55-1.30) Estimat Glomerular Filtration Rate 53.1 mL/min (>60) Glucose Level 128 MG/DL (74-106) H Calcium Level 8.0 MG/DL (8.5-10.1) L Hepatitis A IgM Antibody Pending Hepatitis B Surface Antigen Pending Hepatitis B Core IgM Antibody Pending Hepatitis C Antibody Pending HIV (1&2) Antibody Rapid Negative (NEGATIVE) Microbiology Date/Time Source Procedure Growth Status 08/24/19 21:03 Blood Blood Culture - Preliminary NO GROWTH AFTER 24 HOURS Resulted 08/24/19 20:45 Blood Blood Culture - Preliminary NO GROWTH AFTER 24 HOURS Resulted 08/24/19 21:48 Urine,Clean Catch Urine Culture - Preliminary Resulted Robert Guerrero MD Aug 26, 2019 15:46
[2019-08-26 16:00] VITALS: BP 130/74
--- NOTE | 2019-08-26 19:32 | NUR ---
NURSE NOTES:Handoff report given to KILLIAN Robertson.
[2019-08-26 20:00] VITALS: BP 126/69
--- NOTE | 2019-08-26 20:46 | Pulmonology Progress Note ---
Assessment/Plan Assessment/Plan Pulmonary Progress Note HPI Patient is an 79-year-old man with a past medical history of hypertension and psychiatric illness. Noted to have fever today. His group home has multiple patients positive for COVID19. Patient has noted cough and congestion. Denies any other complaints. He denies any chest pain. No nausea vomiting or diarrhea. Patient is very hard of hearing so history is limited. Stable pulmonary Status Allergies: No Known Allergies Past Medical History: Hypertension, COPD, DM, BPH, Umbilical Hernia and Psychiatric illness Pertinent Family History: none Social History: Denies: smoking All Other Systems: negative except mentioned in HPI Physical Exam Vital Signs Noted General Appearance: well appearing, no apparent distress, alert Head: normocephalic, atraumatic Eyes: bilateral eye PERRL, bilateral eye EOMI ENT: hearing grossly normal, normal pharynx Neck: full range of motion, supple, no meningismus Respiratory: chest non-tender, lungs clear, normal breath sounds Cardiovascular: regular rate, rhythm, no murmur Gastrointestinal: normal bowel sounds, non tender, no mass, no organomegaly, no bruit, non-distended Musculoskeletal: back normal, normal range of motion Neurologic: alert, grossly normal Impression: UTI BPH Sepsis Suspected 2019 novel coronavirus infection COPD HTN DM Psychiatric Illness Plan: IV Antibiotics started. PTAmedications O2 PRN Albuterol PRN PPX Await cultures/viral studies EKG: Rate: normal Rhythm: NSR ST Segments: no acute changes Chest X-Ray: no effusion, no pneumothorax, no acute cardiopulmonary disease, other - Atelectasis at the bases Subjective ROS Limited/Unobtainable: No Allergies: Coded Allergies: No Known Allergies (Verified , 06/19/07) Objective Last 24 Hour Vital Signs Date Time Temp Pulse Resp B/P (MAP) Pulse Ox O2 Delivery O2 Flow Rate FiO2 08/26/19 16:00 98.2 91 18 130/74 (92) 92 08/26/19 16:00 90 08/26/19 12:00 99 08/26/19 12:00 98.2 92 20 120/67 (84) 94 08/26/19 09:00 Room Air 08/26/19 08:00 99.9 98 19 123/67 (85) 95 08/26/19 04:00 87 08/26/19 04:00 98.4 86 20 131/66 (87) 96 08/26/19 00:00 98.6 81 20 122/62 (82) 94 08/26/19 00:00 96 08/25/19 21:00 Room Air Intake and Output 08/25/19 08/26/19 19:00 07:00 Intake Total 975 ml 500 ml Output Total 700 ml Balance 975 ml -200 ml Intake Oral 975 ml 500 ml Output Urine Total 700 ml # Voids 5 # Bowel Movements 1 Microbiology Date/Time Source Procedure Growth Status 08/24/19 21:03 Blood Blood Culture - Preliminary NO GROWTH AFTER 24 HOURS Resulted 08/24/19 20:45 Blood Blood Culture - Preliminary NO GROWTH AFTER 24 HOURS Resulted 08/24/19 21:48 Urine,Clean Catch Urine Culture - Preliminary Resulted Laboratory Tests 08/26/19 06:24: White Blood Count 4.8, Red Blood Count 4.46L, Hemoglobin 13.8L, Hematocrit 39.9L , Mean Corpuscular Volume 89, Mean Corpuscular Hemoglobin 30.9, Mean Corpuscular Hemoglobin Concent 34.6, Red Cell Distribution Width 11.5L, Platelet Count 133L, Mean Platelet Volume 8.1, Neutrophils (%) (Auto) 55.4, Lymphocytes (%) (Auto) 30.7, Monocytes (%) (Auto) 12.4H, Eosinophils (%) (Auto) 0.5, Basophils (%) (Auto) 1.0, Sodium Level 138, Potassium Level 4.0, Chloride Level 104, Carbon Dioxide Level 22, Anion Gap 12, Blood Urea Nitrogen 14, Creatinine 1.3, Estimat Glomerular Filtration Rate 53.1, Glucose Level 128H, Calcium Level 8.0L, Hepatitis A IgM Antibody [Pending], Hepatitis B Surface Antigen [Pending], Hepatitis B Core IgM Antibody [Pending], Hepatitis C Antibody [Pending], HIV (1&2) Antibody Rapid Negative Current Medications Medications (Trade) Dose Ordered Sig/Abilio Route PRN Reason Start Time Stop Time Status Last Admin Dose Admin Acetaminophen (Tylenol) 650 mg EVERY 6 HOURS PRN ORAL Temp >100.5 08/25/19 00:15 09/24/19 00:14 08/25/19 04:32 Albuterol Sulfate (Proventil MDI) 2 puff Q4H PRN INH Shortness of Breath 08/25/19 00:15 7/18/20 00:14 Enoxaparin Sodium (Lovenox) 40 mg DAILY SUBQ 08/26/19 11:00 11/24/19 10:59 08/26/19 11:01 Fluoxetine HCl (PROzac) 20 mg DAILY ORAL 08/26/19 09:00 09/25/19 08:59 08/26/19 11:02 Levofloxacin (Levaquin) 500 mg Q24H ORAL 08/26/19 21:00 09/02/19 20:59 Olanzapine (ZyPREXA) 20 mg BEDTIME ORAL 08/25/19 21:00 10/09/19 20:59 08/25/19 22:18 Tamsulosin HCl (Flomax) 0.4 mg QHS ORAL 08/25/19 21:00 09/24/19 20:59 08/25/19 22:18 Karthikeyan Morris MD Aug 26, 2019 20:46
[2019-08-26] MEDS ORDERED: Levofloxacin 500mg tab ORAL SCH (21:00)
--- NOTE | 2019-08-26 21:52 | General Progress Note ---
Assessment/Plan Problem List: (1) Sepsis ICD Codes: A41.9 - Sepsis, unspecified organism SNOMED: [id number] Qualifiers: Qualified Codes: A41.9 - Sepsis, unspecified organism (2) UTI (urinary tract infection) ICD Codes: N39.0 - Urinary tract infection, site not specified SNOMED: 86617228 Qualifiers: Qualified Codes: N30.00 - Acute cystitis without hematuria (3) Suspected 2019 novel coronavirus infection ICD Codes: R68.89 - Other general symptoms and signs SNOMED: 752385742 Status: progressing Assessment/Plan: afebrile resp insuff supportive care pna uti sepsis abx per id Subjective ROS Limited/Unobtainable: Yes Allergies: Coded Allergies: No Known Allergies (Verified , 06/19/07) Objective Last 24 Hour Vital Signs Date Time Temp Pulse Resp B/P (MAP) Pulse Ox O2 Delivery O2 Flow Rate FiO2 08/26/19 16:00 98.2 91 18 130/74 (92) 92 08/26/19 16:00 90 08/26/19 12:00 99 08/26/19 12:00 98.2 92 20 120/67 (84) 94 08/26/19 09:00 Room Air 08/26/19 08:00 99.9 98 19 123/67 (85) 95 08/26/19 04:00 87 08/26/19 04:00 98.4 86 20 131/66 (87) 96 08/26/19 00:00 98.6 81 20 122/62 (82) 94 08/26/19 00:00 96 Intake and Output 08/25/19 08/26/19 19:00 07:00 Intake Total 975 ml 500 ml Output Total 700 ml Balance 975 ml -200 ml Intake Oral 975 ml 500 ml Output Urine Total 700 ml # Voids 5 # Bowel Movements 1 Laboratory Tests 08/26/19 06:24: White Blood Count 4.8, Red Blood Count 4.46L, Hemoglobin 13.8L, Hematocrit 39.9L , Mean Corpuscular Volume 89, Mean Corpuscular Hemoglobin 30.9, Mean Corpuscular Hemoglobin Concent 34.6, Red Cell Distribution Width 11.5L, Platelet Count 133L, Mean Platelet Volume 8.1, Neutrophils (%) (Auto) 55.4, Lymphocytes (%) (Auto) 30.7, Monocytes (%) (Auto) 12.4H, Eosinophils (%) (Auto) 0.5, Basophils (%) (Auto) 1.0, Sodium Level 138, Potassium Level 4.0, Chloride Level 104, Carbon Dioxide Level 22, Anion Gap 12, Blood Urea Nitrogen 14, Creatinine 1.3, Estimat Glomerular Filtration Rate 53.1, Glucose Level 128H, Calcium Level 8.0L, Hepatitis A IgM Antibody [Pending], Hepatitis B Surface Antigen [Pending], Hepatitis B Core IgM Antibody [Pending], Hepatitis C Antibody [Pending], HIV (1&2) Antibody Rapid Negative Height (Feet): 5 Height (Inches): 10.00 Weight (Pounds): 220 Louisa Aburto MD Aug 26, 2019 21:52
[2019-08-26] MEDS: OLANZapine 10mg tab ORAL SCH (22:38)
[2019-08-26] MEDS: Tamsulosin 0.4mg cap ORAL SCH (22:38)
--- NOTE | 2019-08-26 23:44 | Consultation ---
DATE OF CONSULTATION: 08/26/2019 CARDIOLOGY CONSULTATION CONSULTING PHYSICIAN: Robert Guerrero MD. REFERRING PHYSICIAN: Louisa Aburto MD. REASON FOR CONSULTATION: Tachycardia and shortness of breath. HISTORY OF PRESENT ILLNESS: The patient is an 79-year-old gentleman, who was [facility] from [facility] for temperature 101.3, fever and cough and congestion. The patient was admitted and was evaluated by ID and started on antibiotics. The patient has been ruled out for COVID. Cardiology consultation was obtained for further evaluation and management. REVIEW OF SYSTEMS: Negative other than what was mentioned in the history of present illness. PAST MEDICAL HISTORY: As mentioned above. FAMILY HISTORY: Noncontributory. SOCIAL HISTORY: alf resident. PHYSICAL EXAMINATION: VITAL SIGNS: Blood pressure is 120/67, pulse is 90, respirations 18, temperature 99.9. HEAD AND NECK: Shows no JVD. LUNGS: Coarse rhonchi. CARDIOVASCULAR: Shows regular S1 and S2 with no gallop. ABDOMEN: Soft. EXTREMITIES: A 1+ pitting edema. LABORATORY AND DIAGNOSTIC DATA: Labs show white count of 4.8, hemoglobin 13.8, hematocrit of 40, and platelet count 133. Sodium is 138, potassium 4.0, BUN of 14, creatinine 1.3. His troponin is negative. Urinalysis is positive for bacteria. His serology is pending. ASSESSMENT AND PLAN: 1. Tachycardia, likely due to fever and sepsis. Heart rate is better. The patient is already on antibiotic per ID. 2. COVID-19 test result is pending. 3. Pyuria. 4. Hypertension, blood pressure currently stable. 5. Benign prostatic hypertrophy. 6. Obesity. Thank you very much for allowing me to participate in the care of this patient. Please do not hesitate to contact me for any questions regarding my evaluation. Robert Guerrero M.D. DR: BERNADETTE JOB#: [id number] CC:
[2019-08-27] VITALS: BP 133/68
[2019-08-27 04:00] VITALS: BP 123/77
--- NOTE | 2019-08-27 04:59 | Progress Note ---
DATE: 08/24/2019 HISTORY OF PRESENT ILLNESS: Patient was asking about COVID-19, depressed, has anhedonia and worthlessness. He is not suicidal, but he stated that he wished that he was . Patient is hard of hearing and is withdrawn. Low energy. hard of hearing. MENTAL STATUS EXAMINATION: Alert and oriented to time, self, place, and situation. Mood is depressed. Affect is constricted. Congruent mood. Thought process, concrete. Thought content, no suicidal or homicidal ideation. Cognition is slightly impaired. Insight and judgment impaired. ASSESSMENT: Schizoaffective disorder, depressed type. PLAN: 1. Zyprexa 20 mg at bedtime. 2. Prozac 20 mg in the morning. 3. Provide the patient with reality orientation and supportive therapy. Aryan Hernández M.D. DR: Melani JOB#: [id number] CC: RONNIE
--- NOTE | 2019-08-27 05:59 | Hematology/Onc Progress Note ---
Assessment/Plan Assessment/Plan Assessment and Recs: # Thrombocytopenia - potential causes multifactorial, evaluate liver and viral etiologies to begin, also could be related to underlying medications patient has received. Likely COVID19++ related --> Hep panel and HIV ordered --> NEG --> US abd to evaluate for cirrhosis and hsm ordered as needed --> Peripheral smear ordered to evaluate for blasts /schistocytes --> is wnl --> abx and other meds have been reviewed --> ok for ppx if plt >50k w/ either heparin or lovenox --> Transfuse if Plt < 20k and fever, or if Plt < 10k without fever -> plt trend 134-->120k-->133 # Anemia due to chronic disease --> trend as needed hgb 13 --> no evidence of hemolysis is noted # Sepsis r/o infection --> abx as needed # UTI (urinary tract infection) --> id eval # Suspected 2019 novel coronavirus infection --> abx, per id, o2,duonebs # Psych d/o --> per Farhadi The timing of this note does not necessarily reflect the time of the patient was seen. Greatly appreciate consultation. Subjective Constitutional: Denies: no symptoms, chills, fever, malaise, weakness, other HEENT: Denies: no symptoms, eye pain, blurred vision, tearing, double vision, ear pain, ear discharge, nose pain, nose congestion, throat pain, throat swelling, mouth pain, mouth swelling, other Cardiovascular: Denies: no symptoms, chest pain, edema, irregular heart rate, lightheadedness, palpitations, syncope, other Gastrointestinal/Abdominal: Denies: no symptoms, abdomen distended, abdominal pain, black stools, tarry stools, blood in stool, constipated, diarrhea, difficulty swallowing, nausea, poor appetite, poor fluid intake, rectal bleeding , vomiting, other Endocrine: Denies: no symptoms, excessive sweating, flushing, intolerance to cold, intolerance to heat, increased hunger, increased thirst, increased urine, unexplained weight gain, unexplained weight loss, other Allergies: Coded Allergies: No Known Allergies (Verified , 06/19/07) Subjective 08/25 labs noted, cbc is pending from am, lower fever 08/26 seen by crds and psych, on zyprexa, less agitated overnight Objective Objective Current Medications Medications (Trade) Dose Ordered Sig/Abilio Route PRN Reason Start Time Stop Time Status Last Admin Dose Admin Acetaminophen (Tylenol) 650 mg EVERY 6 HOURS PRN ORAL Temp >100.5 08/25/19 00:15 09/24/19 00:14 08/25/19 04:32 Albuterol Sulfate (Proventil MDI) 2 puff Q4H PRN INH Shortness of Breath 08/25/19 00:15 11/23/19 00:14 Enoxaparin Sodium (Lovenox) 40 mg DAILY SUBQ 08/26/19 11:00 11/24/19 10:59 08/26/19 11:01 Fluoxetine HCl (PROzac) 20 mg DAILY ORAL 08/26/19 09:00 09/25/19 08:59 08/26/19 11:02 Levofloxacin (Levaquin) 500 mg Q24H ORAL 08/26/19 21:00 09/02/19 20:59 08/26/19 22:38 Olanzapine (ZyPREXA) 20 mg BEDTIME ORAL 08/25/19 21:00 10/09/19 20:59 08/26/19 22:38 Tamsulosin HCl (Flomax) 0.4 mg QHS ORAL 08/25/19 21:00 09/24/19 20:59 08/26/19 22:38 Last 24 Hour Vital Signs Date Time Temp Pulse Resp B/P (MAP) Pulse Ox O2 Delivery O2 Flow Rate FiO2 08/27/19 04:00 92 08/27/19 04:00 96.8 91 19 123/77 (92) 95 08/27/19 00:00 90 08/27/19 00:00 97.9 88 18 133/68 (89) 96 08/26/19 21:00 Room Air 08/26/19 20:00 94 08/26/19 20:00 98.2 90 18 126/69 (88) 93 08/26/19 16:00 98.2 91 18 130/74 (92) 92 08/26/19 16:00 90 08/26/19 12:00 99 08/26/19 12:00 98.2 92 20 120/67 (84) 94 08/26/19 09:00 Room Air 08/26/19 08:00 99.9 98 19 123/67 (85) 95 08/26/19 04:00 87 08/26/19 04:00 98.4 86 20 131/66 (87) 96 08/26/19 00:00 98.6 81 20 122/62 (82) 94 08/26/19 00:00 96 08/25/19 21:00 Room Air 08/25/19 20:00 98.3 93 20 119/59 (79) 93 08/25/19 16:00 100 08/25/19 12:00 94 08/25/19 09:00 Room Air 08/25/19 08:00 84 08/25/19 08:00 99.1 91 20 124/59 (80) 93 Intake and Output 08/26/19 08/27/19 19:00 07:00 Intake Total 600 ml Output Total 300 ml Balance 300 ml Intake Oral 600 ml Output Urine Total 300 ml Labs Test 08/24/19 21:03 08/24/19 21:48 08/25/19 09:00 08/26/19 06:24 White Blood Count 5.1 K/UL (4.8-10.8) 5.6 K/UL (4.8-10.8) 4.8 K/UL (4.8-10.8) Red Blood Count 4.47 M/UL (4.70-6.10) 4.33 M/UL (4.70-6.10) 4.46 M/UL (4.70-6.10) Hemoglobin 13.7 G/DL (14.2-18.0) 13.4 G/DL (14.2-18.0) 13.8 G/DL (14.2-18.0) Hematocrit 42.2 % (42.0-52.0) 39.2 % (42.0-52.0) 39.9 % (42.0-52.0) Mean Corpuscular Volume 94 FL (80-99) 91 FL (80-99) 89 FL (80-99) Mean Corpuscular Hemoglobin 30.6 PG (27.0-31.0) 30.9 PG (27.0-31.0) 30.9 PG (27.0-31.0) Mean Corpuscular Hemoglobin Concent 32.5 G/DL (32.0-36.0) 34.1 G/DL (32.0-36.0) 34.6 G/DL (32.0-36.0) Red Cell Distribution Width 13.0 % (11.6-14.8) 11.6 % (11.6-14.8) 11.5 % (11.6-14.8) Platelet Count 134 K/UL (150-450) 120 K/UL (150-450) 133 K/UL (150-450) Mean Platelet Volume 9.1 FL (6.5-10.1) 9.3 FL (6.5-10.1) 8.1 FL (6.5-10.1) Neutrophils (%) (Auto) 59.8 % (45.0-75.0) 70.6 % (45.0-75.0) 55.4 % (45.0-75.0) Lymphocytes (%) (Auto) 27.6 % (20.0-45.0) 17.5 % (20.0-45.0) 30.7 % (20.0-45.0) Monocytes (%) (Auto) 10.9 % (1.0-10.0) 10.6 % (1.0-10.0) 12.4 % (1.0-10.0) Eosinophils (%) (Auto) 0.7 % (0.0-3.0) 0.2 % (0.0-3.0) 0.5 % (0.0-3.0) Basophils (%) (Auto) 1.0 % (0.0-2.0) 1.1 % (0.0-2.0) 1.0 % (0.0-2.0) Prothrombin Time 10.8 SEC (9.30-11.50) Prothromb Time International Ratio 1.0 (0.9-1.1) Activated Partial Thromboplast Time 30 SEC (23-33) Sodium Level 137 MMOL/L (136-145) 140 MMOL/L (136-145) 138 MMOL/L (136-145) Potassium Level 4.1 MMOL/L (3.5-5.1) 4.5 MMOL/L (3.5-5.1) 4.0 MMOL/L (3.5-5.1) Chloride Level 102 MMOL/L (98-107) 105 MMOL/L (98-107) 104 MMOL/L (98-107) Carbon Dioxide Level 24 MMOL/L (21-32) 25 MMOL/L (21-32) 22 MMOL/L (21-32) Anion Gap 11 mmol/L (5-15) 11 mmol/L (5-15) 12 mmol/L (5-15) Blood Urea Nitrogen 22 mg/dL (7-18) 15 mg/dL (7-18) 14 mg/dL (7-18) Creatinine 1.7 MG/DL (0.55-1.30) 1.5 MG/DL (0.55-1.30) 1.3 MG/DL (0.55-1.30) Estimat Glomerular Filtration Rate 39.0 mL/min (>60) 45.0 mL/min (>60) 53.1 mL/min (>60) Glucose Level 189 MG/DL (74-106) 208 MG/DL (74-106) 128 MG/DL (74-106) Lactic Acid Level 1.30 mmol/L (0.4-2.0) Calcium Level 8.2 MG/DL (8.5-10.1) 7.9 MG/DL (8.5-10.1) 8.0 MG/DL (8.5-10.1) Phosphorus Level 3.2 MG/DL (2.5-4.9) Magnesium Level 1.6 MG/DL (1.8-2.4) Total Bilirubin 0.4 MG/DL (0.2-1.0) Aspartate Amino Transf (AST/SGOT) 21 U/L (15-37) Alanine Aminotransferase (ALT/SGPT) 26 U/L (12-78) Alkaline Phosphatase 77 U/L (46-116) Total Creatine Kinase 96 U/L (26-308) Troponin I 0.007 ng/mL (0.000-0.056) Pro-B-Type Natriuretic Peptide pg/mL (0-125) Total Protein 7.0 G/DL (6.4-8.2) Albumin 3.2 G/DL (3.4-5.0) Globulin 3.8 g/dL Albumin/Globulin Ratio 0.8 (1.0-2.7) Lipase 263 U/L (73-393) Urine Color Yellow Urine Appearance Clear Urine pH 5 (4.5-8.0) Urine Specific Stella 1.020 (1.005-1.035) Urine Protein 1+ (NEGATIVE) Urine Glucose (UA) Negative (NEGATIVE) Urine Ketones Negative (NEGATIVE) Urine Blood 1+ (NEGATIVE) Urine Nitrite Negative (NEGATIVE) Urine Bilirubin Negative (NEGATIVE) Urine Urobilinogen Normal MG/DL (0.0-1.0) Urine Leukocyte Esterase 1+ (NEGATIVE) Urine RBC 0-2 /HPF (0 - 0) Urine WBC 5-10 /HPF (0 - 0) Urine Squamous Epithelial Cells Few /LPF (NONE/OCC) Urine Bacteria Moderate /HPF (NONE) Hepatitis A IgM Antibody Negative (Negative) Hepatitis B Surface Antigen Negative (Negative) Hepatitis B Core IgM Antibody Negative (Negative) Hepatitis C Antibody <0.1 s/co ratio HIV (1&2) Antibody Rapid Negative (NEGATIVE) Height (Feet): 5 Height (Inches): 10.00 Weight (Pounds): 220 Objective Vitals: reviewed General: NAD HEENT: nc, at Neck: supple Chest: clear breath sounds bilaterally Cardiovascular: RRR, no s3, s4 Abdomen: soft, nontender, nd Extremities: no cce, normal range of motion Neuro: alert and oriented Anival Peñaloza MD Aug 27, 2019 05:59
[2019-08-27 06:42] LABS: EOSINOPHILS % (AUTO) 2.3 % (0.0-3.0); HEMATOCRIT 41.3 % (42.0-52.0); HEMOGLOBIN 14.2 G/DL (14.2-18.0); MEAN CORPUSCULAR VOLUME 90 FL (80-99); MONOCYTES % (AUTO) 12.1 % (1.0-10.0); NEUTROPHILS % (AUTO) 46.5 % (45.0-75.0); PLATELET COUNT 151 K/UL (150-450); RED BLOOD COUNT 4.61 M/UL (4.70-6.10); RED CELL DISTRIBUTION WIDTH 11.4 % (11.6-14.8); WHITE BLOOD COUNT 4.3 K/UL (4.8-10.8)
[2019-08-27 07:34] LABS: ANION GAP 10 mmol/L (5-15); BLOOD UREA NITROGEN 18 mg/dL (7-18); CALCIUM 9.1 MG/DL (8.5-10.1); CARBON DIOXIDE 26 MMOL/L (21-32); CHLORIDE 104 MMOL/L (98-107); CREATININE 1.4 MG/DL (0.55-1.30); POTASSIUM 4.1 MMOL/L (3.5-5.1); SODIUM 140 MMOL/L (136-145)
--- NOTE | 2019-08-27 07:52 | NUR ---
NURSE NOTES:Left a message for Kathleen notifying him that patient in -2 is positive for Covid.
[2019-08-27 08:00] VITALS: BP 133/78
[2019-08-27] MEDS: Enoxaparin 40mg Inj SUBQ SCH (10:19)
--- NOTE | 2019-08-27 10:50 | Cardiac Electrophysiology PN ---
Assessment/Plan Assessment/Plan 1. Sinus tachycardia due to fever and sepsis. Heart rate is better on antibiotic per ID. 2. COVID-19 test result is pending. 3. Pyuria. 4. Hypertension, blood pressure currently stable. 5. Benign prostatic hypertrophy. 6. Obesity. Subjective Subjective In SR in Covid isolation Objective Last 24 Hour Vital Signs Date Time Temp Pulse Resp B/P (MAP) Pulse Ox O2 Delivery O2 Flow Rate FiO2 08/27/19 09:00 Room Air 08/27/19 08:00 98.1 96 20 133/78 (96) 97 08/27/19 04:00 92 08/27/19 04:00 96.8 91 19 123/77 (92) 95 08/27/19 00:00 90 08/27/19 00:00 97.9 88 18 133/68 (89) 96 08/26/19 21:00 Room Air 08/26/19 20:00 94 08/26/19 20:00 98.2 90 18 126/69 (88) 93 08/26/19 16:00 98.2 91 18 130/74 (92) 92 08/26/19 16:00 90 08/26/19 12:00 99 08/26/19 12:00 98.2 92 20 120/67 (84) 94 Intake and Output 08/26/19 08/27/19 19:00 07:00 Intake Total 600 ml Output Total 300 ml Balance 300 ml Intake Oral 600 ml Output Urine Total 300 ml # Voids 1 Laboratory Tests Test 08/27/19 05:56 White Blood Count 4.3 K/UL (4.8-10.8) L Red Blood Count 4.61 M/UL (4.70-6.10) L Hemoglobin 14.2 G/DL (14.2-18.0) Hematocrit 41.3 % (42.0-52.0) L Mean Corpuscular Volume 90 FL (80-99) Mean Corpuscular Hemoglobin 30.9 PG (27.0-31.0) Mean Corpuscular Hemoglobin Concent 34.5 G/DL (32.0-36.0) Red Cell Distribution Width 11.4 % (11.6-14.8) L Platelet Count 151 K/UL (150-450) Mean Platelet Volume 8.2 FL (6.5-10.1) Neutrophils (%) (Auto) 46.5 % (45.0-75.0) Lymphocytes (%) (Auto) 38.0 % (20.0-45.0) Monocytes (%) (Auto) 12.1 % (1.0-10.0) H Eosinophils (%) (Auto) 2.3 % (0.0-3.0) Basophils (%) (Auto) 1.0 % (0.0-2.0) Sodium Level 140 MMOL/L (136-145) Potassium Level 4.1 MMOL/L (3.5-5.1) Chloride Level 104 MMOL/L (98-107) Carbon Dioxide Level 26 MMOL/L (21-32) Anion Gap 10 mmol/L (5-15) Blood Urea Nitrogen 18 mg/dL (7-18) Creatinine 1.4 MG/DL (0.55-1.30) H Estimat Glomerular Filtration Rate 48.8 mL/min (>60) Glucose Level 133 MG/DL (74-106) H Calcium Level 9.1 MG/DL (8.5-10.1) Troponin I 0.000 ng/mL (0.000-0.056) Pro-B-Type Natriuretic Peptide 128 pg/mL (0-125) H Microbiology Date/Time Source Procedure Growth Status 08/24/19 21:03 Blood Blood Culture - Preliminary NO GROWTH AFTER 48 HOURS Resulted 08/24/19 20:45 Blood Blood Culture - Preliminary NO GROWTH AFTER 48 HOURS Resulted 08/24/19 21:47 Nasopharynx Coronavirus COVID-19 PCR (JANA) - Final Complete 08/24/19 21:48 Urine,Clean Catch Urine Culture - Final Strep Agalactiae Group B Complete Objective HEAD AND NECK: No JVD. LUNGS: Coarse rhonchi. CARDIOVASCULAR: Regular S1 and S2 with no gallop. ABDOMEN: Soft. EXTREMITIES: 1+ pitting edema. Robert Guerrero MD Aug 27, 2019 10:50
--- NOTE | 2019-08-27 11:09 | NUR ---
NURSE NOTES:Marge Colon made rounds. updated him on patient positive covid status.
--- NOTE | 2019-08-27 11:11 | NUR ---
NURSE NOTES:Patient had 6 seconds of abnormal rhythm. No hematologist on the case. Messaged Dr Aburto to update him on patient condition.
--- NOTE | 2019-08-27 11:24 | Infectious Diseases Prog Note ---
Assessment/Plan Assessment/Plan IMPRESSION: 1. COVID-19 disease 2. Strep group B UTI. 3. BPH. 4. Hypertension. 5. Obesity. 6. Schizoaffective disorder, depressive type RECOMMENDATION: Change levaquin to Amoxicillin. Continue COVID-19 tests. Subjective ROS Limited/Unobtainable: Yes Constitutional: Denies: fever Psychiatric: Reports: other - refuses IV medications Allergies: Coded Allergies: No Known Allergies (Verified , 06/19/07) Objective Vital Signs Last 24 Hour Vital Signs Date Time Temp Pulse Resp B/P (MAP) Pulse Ox O2 Delivery O2 Flow Rate FiO2 08/27/19 09:00 Room Air 08/27/19 08:00 98.1 96 20 133/78 (96) 97 08/27/19 08:00 88 08/27/19 04:00 92 08/27/19 04:00 96.8 91 19 123/77 (92) 95 08/27/19 00:00 90 08/27/19 00:00 97.9 88 18 133/68 (89) 96 08/26/19 21:00 Room Air 08/26/19 20:00 94 08/26/19 20:00 98.2 90 18 126/69 (88) 93 08/26/19 16:00 98.2 91 18 130/74 (92) 92 08/26/19 16:00 90 08/26/19 12:00 99 08/26/19 12:00 98.2 92 20 120/67 (84) 94 Height (Feet): 5 Height (Inches): 10.00 Weight (Pounds): 220 General Appearance: no acute distress HEENT: mucous membranes moist Respiratory/Chest: lungs clear Cardiovascular: normal rate Abdomen: soft, non tender Neurologic/Psychiatric: other - s Microbiology Date/Time Source Procedure Growth Status 08/24/19 21:03 Blood Blood Culture - Preliminary NO GROWTH AFTER 48 HOURS Resulted 08/24/19 20:45 Blood Blood Culture - Preliminary NO GROWTH AFTER 48 HOURS Resulted 08/24/19 21:47 Nasopharynx Coronavirus COVID-19 PCR (JANA) - Final Complete 08/24/19 21:48 Urine,Clean Catch Urine Culture - Final Strep Agalactiae Group B Complete Laboratory Tests Test 08/27/19 05:56 White Blood Count 4.3 K/UL (4.8-10.8) L Red Blood Count 4.61 M/UL (4.70-6.10) L Hemoglobin 14.2 G/DL (14.2-18.0) Hematocrit 41.3 % (42.0-52.0) L Mean Corpuscular Volume 90 FL (80-99) Mean Corpuscular Hemoglobin 30.9 PG (27.0-31.0) Mean Corpuscular Hemoglobin Concent 34.5 G/DL (32.0-36.0) Red Cell Distribution Width 11.4 % (11.6-14.8) L Platelet Count 151 K/UL (150-450) Mean Platelet Volume 8.2 FL (6.5-10.1) Neutrophils (%) (Auto) 46.5 % (45.0-75.0) Lymphocytes (%) (Auto) 38.0 % (20.0-45.0) Monocytes (%) (Auto) 12.1 % (1.0-10.0) H Eosinophils (%) (Auto) 2.3 % (0.0-3.0) Basophils (%) (Auto) 1.0 % (0.0-2.0) Sodium Level 140 MMOL/L (136-145) Potassium Level 4.1 MMOL/L (3.5-5.1) Chloride Level 104 MMOL/L (98-107) Carbon Dioxide Level 26 MMOL/L (21-32) Anion Gap 10 mmol/L (5-15) Blood Urea Nitrogen 18 mg/dL (7-18) Creatinine 1.4 MG/DL (0.55-1.30) H Estimat Glomerular Filtration Rate 48.8 mL/min (>60) Glucose Level 133 MG/DL (74-106) H Calcium Level 9.1 MG/DL (8.5-10.1) Troponin I 0.000 ng/mL (0.000-0.056) Pro-B-Type Natriuretic Peptide 128 pg/mL (0-125) H Current Medications Medications (Trade) Dose Ordered Sig/Abilio Route PRN Reason Start Time Stop Time Status Last Admin Dose Admin Acetaminophen (Tylenol) 650 mg EVERY 6 HOURS PRN ORAL Temp >100.5 08/25/19 00:15 09/24/19 00:14 08/27/19 10:26 Albuterol Sulfate (Proventil MDI) 2 puff Q4H PRN INH Shortness of Breath 08/25/19 00:15 11/23/19 00:14 Enoxaparin Sodium (Lovenox) 40 mg DAILY SUBQ 08/26/19 11:00 11/24/19 10:59 08/27/19 10:19 Fluoxetine HCl (PROzac) 20 mg DAILY ORAL 08/26/19 09:00 09/25/19 08:59 08/27/19 10:19 Levofloxacin (Levaquin) 500 mg Q24H ORAL 08/26/19 21:00 09/02/19 20:59 08/26/19 22:38 Olanzapine (ZyPREXA) 20 mg BEDTIME ORAL 08/25/19 21:00 10/09/19 20:59 08/26/19 22:38 Tamsulosin HCl (Flomax) 0.4 mg QHS ORAL 08/25/19 21:00 09/24/19 20:59 08/26/19 22:38 Toni Colon MD Aug 27, 2019 11:24
--- NOTE | 2019-08-27 11:24 | NUR ---
NURSE NOTES:Dr Aburto stated to inform Dr Guerrero regarding abnormal rhythm strip. Dr Guerrero notified.
--- NOTE | 2019-08-27 11:30 | Cardiac Electrophysiology PN ---
Assessment/Plan Assessment/Plan 1. Sinus tachycardia due to fever and sepsis. Heart rate is better on antibiotic per ID. 2. Short run of atrial fib with RVR start Lopressor 25 bid 3. NSVT 9 beats. Echo pending 4. Hypertension, add Lopressor 5. Benign prostatic hypertrophy. 6. Obesity. 7. COVID-19 test result is pending. Subjective Subjective In SR in Covid isolation. Had short run of atrial fib less than 10 seconds and 9 beats of NSVT Objective Last 24 Hour Vital Signs Date Time Temp Pulse Resp B/P (MAP) Pulse Ox O2 Delivery O2 Flow Rate FiO2 08/27/19 09:00 Room Air 08/27/19 08:00 98.1 96 20 133/78 (96) 97 08/27/19 08:00 88 08/27/19 04:00 92 08/27/19 04:00 96.8 91 19 123/77 (92) 95 08/27/19 00:00 90 08/27/19 00:00 97.9 88 18 133/68 (89) 96 08/26/19 21:00 Room Air 08/26/19 20:00 94 08/26/19 20:00 98.2 90 18 126/69 (88) 93 08/26/19 16:00 98.2 91 18 130/74 (92) 92 08/26/19 16:00 90 08/26/19 12:00 99 08/26/19 12:00 98.2 92 20 120/67 (84) 94 Intake and Output 08/26/19 08/27/19 19:00 07:00 Intake Total 600 ml Output Total 300 ml Balance 300 ml Intake Oral 600 ml Output Urine Total 300 ml # Voids 1 Laboratory Tests Test 08/27/19 05:56 White Blood Count 4.3 K/UL (4.8-10.8) L Red Blood Count 4.61 M/UL (4.70-6.10) L Hemoglobin 14.2 G/DL (14.2-18.0) Hematocrit 41.3 % (42.0-52.0) L Mean Corpuscular Volume 90 FL (80-99) Mean Corpuscular Hemoglobin 30.9 PG (27.0-31.0) Mean Corpuscular Hemoglobin Concent 34.5 G/DL (32.0-36.0) Red Cell Distribution Width 11.4 % (11.6-14.8) L Platelet Count 151 K/UL (150-450) Mean Platelet Volume 8.2 FL (6.5-10.1) Neutrophils (%) (Auto) 46.5 % (45.0-75.0) Lymphocytes (%) (Auto) 38.0 % (20.0-45.0) Monocytes (%) (Auto) 12.1 % (1.0-10.0) H Eosinophils (%) (Auto) 2.3 % (0.0-3.0) Basophils (%) (Auto) 1.0 % (0.0-2.0) Sodium Level 140 MMOL/L (136-145) Potassium Level 4.1 MMOL/L (3.5-5.1) Chloride Level 104 MMOL/L (98-107) Carbon Dioxide Level 26 MMOL/L (21-32) Anion Gap 10 mmol/L (5-15) Blood Urea Nitrogen 18 mg/dL (7-18) Creatinine 1.4 MG/DL (0.55-1.30) H Estimat Glomerular Filtration Rate 48.8 mL/min (>60) Glucose Level 133 MG/DL (74-106) H Calcium Level 9.1 MG/DL (8.5-10.1) Troponin I 0.000 ng/mL (0.000-0.056) Pro-B-Type Natriuretic Peptide 128 pg/mL (0-125) H Microbiology Date/Time Source Procedure Growth Status 08/24/19 21:03 Blood Blood Culture - Preliminary NO GROWTH AFTER 48 HOURS Resulted 08/24/19 20:45 Blood Blood Culture - Preliminary NO GROWTH AFTER 48 HOURS Resulted 08/24/19 21:47 Nasopharynx Coronavirus COVID-19 PCR ([facility]) - Final Complete 08/24/19 21:48 Urine,Clean Catch Urine Culture - Final Strep Agalactiae Group B Complete Objective HEAD AND NECK: No JVD. LUNGS: Coarse rhonchi. CARDIOVASCULAR: Regular S1 and S2 with no gallop. ABDOMEN: Soft. EXTREMITIES: 1+ pitting edema. Robert Guerrero MD Aug 27, 2019 11:30
--- NOTE | 2019-08-27 11:34 | NUR ---
NURSE NOTES:Dr Guerrero aware. Placed order for Lopressor.
[2019-08-27 12:00] VITALS: BP 108/65
[2019-08-27 16:00] VITALS: BP 137/78
--- NOTE | 2019-08-27 19:29 | NUR ---
HAND-OFF: Report given to KILLIAN Wolf.
--- NOTE | 2019-08-27 19:39 | NUR ---
NURSE NOTES: Pt received from KILLIAN Murray alert and oriented x3, Sinus Rhythm on the monitor. No IV site noted on the patient, MD aware. Bed in lowest position, call light and belongings within reach.
[2019-08-27 20:00] VITALS: BP 124/80
[2019-08-27] MEDS ORDERED: Amoxicillin 125mg/5ml susp 80ml GT SCH (21:00)
[2019-08-27] MEDS: Tamsulosin 0.4mg cap ORAL SCH (21:29)
[2019-08-27] MEDS: OLANZapine 10mg tab ORAL SCH (21:29)
--- NOTE | 2019-08-27 22:30 | Progress Note ---
DATE: 08/27/2019 SUBJECTIVE: The patient is in bed, able to answer the questions, depressed, low energy, withdrawn. MENTAL STATUS EXAMINATION: The patient is oriented times self, place, situation. Mood is depressed. Affect is constricted. Congruent with mood. Thought process is concrete. Thought content, no suicidal or homicidal ideation. ASSESSMENT: Schizoaffective disorder. PLAN: 1. Zyprexa 20. 2. Prozac. 3. Provide the patient with reality orientation and supportive therapy. Aryan Hernández M.D. DR: Nitza JOB#: [id number] CC:
--- NOTE | 2019-08-27 22:42 | General Progress Note ---
Assessment/Plan Problem List: (1) Sepsis ICD Codes: A41.9 - Sepsis, unspecified organism SNOMED: 72652286 Qualifiers: Qualified Codes: A41.9 - Sepsis, unspecified organism (2) UTI (urinary tract infection) ICD Codes: N39.0 - Urinary tract infection, site not specified SNOMED: 60882841 Qualifiers: Qualified Codes: N30.00 - Acute cystitis without hematuria (3) Suspected 2019 novel coronavirus infection ICD Codes: R68.89 - Other general symptoms and signs SNOMED: 663733622 Status: progressing Assessment/Plan: abnormal ekg consulted cardiology afebrile no cp pna uti sepsis reviewed chart Subjective ROS Limited/Unobtainable: Yes Allergies: Coded Allergies: No Known Allergies (Verified , 06/19/07) Objective Last 24 Hour Vital Signs Date Time Temp Pulse Resp B/P (MAP) Pulse Ox O2 Delivery O2 Flow Rate FiO2 08/27/19 21:29 79 145/78 08/27/19 16:00 97.7 79 20 137/78 (97) 98 08/27/19 16:00 71 08/27/19 12:00 98.2 85 20 108/65 (79) 96 08/27/19 12:00 75 08/27/19 09:00 Room Air 08/27/19 08:00 98.1 96 20 133/78 (96) 97 08/27/19 08:00 88 08/27/19 07:00 95 18 96 Room Air 21 08/27/19 04:00 92 08/27/19 04:00 96.8 91 19 123/77 (92) 95 08/27/19 00:00 90 08/27/19 00:00 97.9 88 18 133/68 (89) 96 Intake and Output 08/26/19 08/27/19 19:00 07:00 Intake Total 600 ml Output Total 300 ml Balance 300 ml Intake Oral 600 ml Output Urine Total 300 ml # Voids 1 Laboratory Tests 08/27/19 05:56: White Blood Count 4.3L, Red Blood Count 4.61L, Hemoglobin 14.2, Hematocrit 41.3L , Mean Corpuscular Volume 90, Mean Corpuscular Hemoglobin 30.9, Mean Corpuscular Hemoglobin Concent 34.5, Red Cell Distribution Width 11.4L, Platelet Count 151, Mean Platelet Volume 8.2, Neutrophils (%) (Auto) 46.5, Lymphocytes (%) (Auto) 38.0, Monocytes (%) (Auto) 12.1H, Eosinophils (%) (Auto) 2.3, Basophils (%) (Auto) 1.0, Sodium Level 140, Potassium Level 4.1, Chloride Level 104, Carbon Dioxide Level 26, Anion Gap 10, Blood Urea Nitrogen 18, Creatinine 1.4H, Estimat Glomerular Filtration Rate 48.8, Glucose Level 133H, Calcium Level 9.1, Troponin I 0.000, Pro-B-Type Natriuretic Peptide 128H Height (Feet): 5 Height (Inches): 10.00 Weight (Pounds): 220 Louisa Aburto MD Aug 27, 2019 22:42
[2019-08-28 04:00] VITALS: BP 130/67
--- NOTE | 2019-08-28 06:01 | Hematology/Onc Progress Note ---
Assessment/Plan Assessment/Plan Assessment and Recs: # Pancytopenia - potential causes multifactorial, evaluate liver and viral etiologies to begin, also could be related to underlying medications patient has received. Likely COVID19++ related --> Hep panel and HIV ordered --> NEG --> US abd to evaluate for cirrhosis and hsm ordered as needed --> Peripheral smear ordered to evaluate for blasts /schistocytes --> is wnl --> abx and other meds have been reviewed --> ok for ppx if plt >50k w/ either heparin or lovenox --> Transfuse if Plt < 20k and fever, or if Plt < 10k without fever --> wbc trend 5-->4 -> plt trend 134-->120k-->133-->150 # Anemia due to chronic disease --> trend as needed hgb 13 --> no evidence of hemolysis is noted # Sepsis r/o infection --> abx as needed # UTI (urinary tract infection) --> id eval # Suspected 2019 novel coronavirus infection --> abx, per id, o2,duonebs # Psych d/o --> per Farhadi The timing of this note does not necessarily reflect the time of the patient was seen. Greatly appreciate consultation. Subjective Constitutional: Denies: no symptoms, chills, fever, malaise, weakness, other HEENT: Denies: no symptoms, eye pain, blurred vision, tearing, double vision, ear pain, ear discharge, nose pain, nose congestion, throat pain, throat swelling, mouth pain, mouth swelling, other Cardiovascular: Denies: no symptoms, chest pain, edema, irregular heart rate, lightheadedness, palpitations, syncope, other Respiratory: Denies: no symptoms, cough, shortness of breath, SOB with excertion, SOB at rest, sputum, wheezing, other Gastrointestinal/Abdominal: Denies: no symptoms, abdomen distended, abdominal pain, black stools, tarry stools, blood in stool, constipated, diarrhea, difficulty swallowing, nausea, poor appetite, poor fluid intake, rectal bleeding , vomiting, other Genitourinary: Denies: no symptoms, burning, discharge, frequency, flank pain, hematuria, incontinence, pain, urgency, other Neurologic/Psychiatric: Denies: no symptoms, anxiety, depressed, emotional problems, headache, numbness, paresthesia, pre-existing deficit, seizure, tingling, tremors, weakness, other Endocrine: Denies: no symptoms, excessive sweating, flushing, intolerance to cold, intolerance to heat, increased hunger, increased thirst, increased urine, unexplained weight gain, unexplained weight loss, other Allergies: Coded Allergies: No Known Allergies (Verified , 06/19/07) Subjective 08/25 labs noted, cbc is pending from am, lower fever 08/26 seen by crds and psych, on zyprexa, less agitated overnight 08/27 no bleeding, labs reviewed, no night sweats, on lopressor for high bp Objective Objective Current Medications Medications (Trade) Dose Ordered Sig/Abilio Route PRN Reason Start Time Stop Time Status Last Admin Dose Admin Acetaminophen (Tylenol) 650 mg EVERY 6 HOURS PRN ORAL Temp >100.5 08/25/19 00:15 09/24/19 00:14 08/27/19 10:26 Albuterol Sulfate (Proventil MDI) 2 puff Q4H PRN INH Shortness of Breath 08/25/19 00:15 11/23/19 00:14 Amoxicillin (Amoxil) 500 mg EVERY 12 HOURS ORAL 08/27/19 21:00 09/03/19 20:59 08/27/19 21:29 Enoxaparin Sodium (Lovenox) 40 mg DAILY SUBQ 08/26/19 11:00 11/24/19 10:59 08/27/19 10:19 Fluoxetine HCl (PROzac) 20 mg DAILY ORAL 08/26/19 09:00 09/25/19 08:59 08/27/19 10:19 Metoprolol Tartrate (Lopressor) 25 mg Q12HR ORAL 08/27/19 21:00 11/25/19 20:59 08/27/19 21:29 Olanzapine (ZyPREXA) 20 mg BEDTIME ORAL 08/25/19 21:00 10/09/19 20:59 08/27/19 21:29 Tamsulosin HCl (Flomax) 0.4 mg QHS ORAL 08/25/19 21:00 09/24/19 20:59 08/27/19 21:29 Last 24 Hour Vital Signs Date Time Temp Pulse Resp B/P (MAP) Pulse Ox O2 Delivery O2 Flow Rate FiO2 08/28/19 04:00 68 08/28/19 04:00 97.9 88 19 130/67 (88) 95 08/28/19 00:00 70 08/27/19 21:29 79 145/78 08/27/19 21:00 Room Air 08/27/19 20:00 98.9 98 18 124/80 (95) 95 08/27/19 20:00 88 08/27/19 16:00 97.7 79 20 137/78 (97) 98 08/27/19 16:00 71 08/27/19 12:00 98.2 85 20 108/65 (79) 96 08/27/19 12:00 75 08/27/19 09:00 Room Air 08/27/19 08:00 98.1 96 20 133/78 (96) 97 08/27/19 08:00 88 08/27/19 07:00 95 18 96 Room Air 21 08/27/19 04:00 92 08/27/19 04:00 96.8 91 19 123/77 (92) 95 08/27/19 00:00 90 08/27/19 00:00 97.9 88 18 133/68 (89) 96 08/26/19 21:00 Room Air 08/26/19 20:00 94 08/26/19 20:00 98.2 90 18 126/69 (88) 93 08/26/19 16:00 98.2 91 18 130/74 (92) 92 08/26/19 16:00 90 08/26/19 12:00 99 08/26/19 12:00 98.2 92 20 120/67 (84) 94 08/26/19 09:00 Room Air 08/26/19 08:00 99.9 98 19 123/67 (85) 95 Intake and Output 08/27/19 08/28/19 19:00 07:00 Intake Total 730 ml Balance 730 ml Intake Oral 730 ml # Voids 3 # Bowel Movements 1 1 Labs Test 08/25/19 09:00 08/26/19 06:24 08/27/19 05:56 White Blood Count 5.6 K/UL (4.8-10.8) 4.8 K/UL (4.8-10.8) 4.3 K/UL (4.8-10.8) Red Blood Count 4.33 M/UL (4.70-6.10) 4.46 M/UL (4.70-6.10) 4.61 M/UL (4.70-6.10) Hemoglobin 13.4 G/DL (14.2-18.0) 13.8 G/DL (14.2-18.0) 14.2 G/DL (14.2-18.0) Hematocrit 39.2 % (42.0-52.0) 39.9 % (42.0-52.0) 41.3 % (42.0-52.0) Mean Corpuscular Volume 91 FL (80-99) 89 FL (80-99) 90 FL (80-99) Mean Corpuscular Hemoglobin 30.9 PG (27.0-31.0) 30.9 PG (27.0-31.0) 30.9 PG (27.0-31.0) Mean Corpuscular Hemoglobin Concent 34.1 G/DL (32.0-36.0) 34.6 G/DL (32.0-36.0) 34.5 G/DL (32.0-36.0) Red Cell Distribution Width 11.6 % (11.6-14.8) 11.5 % (11.6-14.8) 11.4 % (11.6-14.8) Platelet Count 120 K/UL (150-450) 133 K/UL (150-450) 151 K/UL (150-450) Mean Platelet Volume 9.3 FL (6.5-10.1) 8.1 FL (6.5-10.1) 8.2 FL (6.5-10.1) Neutrophils (%) (Auto) 70.6 % (45.0-75.0) 55.4 % (45.0-75.0) 46.5 % (45.0-75.0) Lymphocytes (%) (Auto) 17.5 % (20.0-45.0) 30.7 % (20.0-45.0) 38.0 % (20.0-45.0) Monocytes (%) (Auto) 10.6 % (1.0-10.0) 12.4 % (1.0-10.0) 12.1 % (1.0-10.0) Eosinophils (%) (Auto) 0.2 % (0.0-3.0) 0.5 % (0.0-3.0) 2.3 % (0.0-3.0) Basophils (%) (Auto) 1.1 % (0.0-2.0) 1.0 % (0.0-2.0) 1.0 % (0.0-2.0) Sodium Level 140 MMOL/L (136-145) 138 MMOL/L (136-145) 140 MMOL/L (136-145) Potassium Level 4.5 MMOL/L (3.5-5.1) 4.0 MMOL/L (3.5-5.1) 4.1 MMOL/L (3.5-5.1) Chloride Level 105 MMOL/L (98-107) 104 MMOL/L (98-107) 104 MMOL/L (98-107) Carbon Dioxide Level 25 MMOL/L (21-32) 22 MMOL/L (21-32) 26 MMOL/L (21-32) Anion Gap 11 mmol/L (5-15) 12 mmol/L (5-15) 10 mmol/L (5-15) Blood Urea Nitrogen 15 mg/dL (7-18) 14 mg/dL (7-18) 18 mg/dL (7-18) Creatinine 1.5 MG/DL (0.55-1.30) 1.3 MG/DL (0.55-1.30) 1.4 MG/DL (0.55-1.30) Estimat Glomerular Filtration Rate 45.0 mL/min (>60) 53.1 mL/min (>60) 48.8 mL/min (>60) Glucose Level 208 MG/DL (74-106) 128 MG/DL (74-106) 133 MG/DL (74-106) Calcium Level 7.9 MG/DL (8.5-10.1) 8.0 MG/DL (8.5-10.1) 9.1 MG/DL (8.5-10.1) Hepatitis A IgM Antibody Negative (Negative) Hepatitis B Surface Antigen Negative (Negative) Hepatitis B Core IgM Antibody Negative (Negative) Hepatitis C Antibody <0.1 s/co ratio HIV (1&2) Antibody Rapid Negative (NEGATIVE) Troponin I 0.000 ng/mL (0.000-0.056) Pro-B-Type Natriuretic Peptide 128 pg/mL (0-125) Height (Feet): 5 Height (Inches): 10.00 Weight (Pounds): 220 Objective Vitals: reviewed General: NAD HEENT: nc, at Neck: supple Chest: clear breath sounds bilaterally Cardiovascular: RRR, no s3, s4 Abdomen: soft, nontender, nd Extremities: no cce, normal range of motion Neuro: alert and oriented Anival Peñaloza MD Aug 28, 2019 06:01
--- NOTE | 2019-08-28 07:15 | NUR ---
HAND-OFF: Report given to KILLIAN Patino. Plan of care endorsed.
--- NOTE | 2019-08-28 07:16 | NUR ---
NURSE NOTES: Received patient in bed asleep. No SOB or acute distress. HOB elevated. Bed locked in lowest position. Call light within reach. Will continue plan of care.
[2019-08-28 08:00] VITALS: BP 125/70
--- NOTE | 2019-08-28 09:30 | NUR ---
RD ASSESSMENT & RECOMMENDATIONS SEE CARE ACTIVITY FOR COMPLETE ASSESSMENT DAILY ESTIMATED NEEDS: Needs based on Sepsis, advanced age [age]kg abw 25-30 kcals/kg 7332-6762 total kcals 1-2 g protein/kg 81-163 g total protein 20-30ml/kcal mL/kg 2364-1061 total fluid mLs NUTRITION DIAGNOSIS: Altered nutrition related lab values r/t hyperglycemia as evidenced by BG 128-208. CURRENT DIET: [facility] MED PO DIET RECOMMENDATIONS: Maintain [facility] MED diet ADDITIONAL RECOMMENDATIONS: 1) Monitor po intake, need for snacks 2) Monitor texture acceptance, need for modifications 3) Rec bed side BG testing; consider HgA1C
[2019-08-28] MEDS: Enoxaparin 40mg Inj SUBQ SCH (10:28)
--- NOTE | 2019-08-28 11:39 | Cardiac Electrophysiology PN ---
Assessment/Plan Assessment/Plan 1. Sinus tachycardia due to fever and sepsis. Heart rate is better on antibiotic per ID. 2. Short run of atrial fib with RVR start Lopressor 25 bid 3. NSVT 9 beats. Echo pending 4. Hypertension, on Lopressor 5. Benign prostatic hypertrophy. 6. Obesity. 7. COVID-19 test result is negative but second one is pending. Subjective Subjective In SR in Covid isolation. Had short run of atrial fib less than 10 seconds and 9 beats of NSVT yesterday but no further Objective Last 24 Hour Vital Signs Date Time Temp Pulse Resp B/P (MAP) Pulse Ox O2 Delivery O2 Flow Rate FiO2 08/28/19 10:26 86 125/70 08/28/19 09:00 Room Air 08/28/19 08:00 97.7 86 20 125/70 (88) 96 08/28/19 08:00 78 08/28/19 04:00 68 08/28/19 04:00 97.9 88 19 130/67 (88) 95 08/28/19 00:00 70 08/27/19 21:29 79 145/78 08/27/19 21:00 Room Air 08/27/19 20:00 98.9 98 18 124/80 (95) 95 08/27/19 20:00 88 08/27/19 16:00 97.7 79 20 137/78 (97) 98 08/27/19 16:00 71 08/27/19 12:00 98.2 85 20 108/65 (79) 96 08/27/19 12:00 75 Intake and Output 08/27/19 08/28/19 19:00 07:00 Intake Total 730 ml Balance 730 ml Intake Oral 730 ml # Voids 3 1 # Bowel Movements 1 1 Objective HEAD AND NECK: No JVD. LUNGS: Coarse rhonchi. CARDIOVASCULAR: Regular S1 and S2 with no gallop. ABDOMEN: Soft. EXTREMITIES: 1+ pitting edema. Robert Guerrero MD Aug 28, 2019 11:39
[2019-08-28 12:00] VITALS: BP 125/61
--- NOTE | 2019-08-28 12:06 | NUR ---
CASE MANAGEMENT:REVIEW 08/28/19 SI:COVID 19 PNEUMONIA 97.7 86 20 125/70 96% ON RA IS: AMOXICILLIN PO Q12 LOPRESSOR PO Q12 LOVENOX SQ QD PROZAC PO QD FLOMAX PO QHS ZYPREXA PO QHS : TELEMETRY STATUS DCP: FROM MARCY BOONE
--- NOTE | 2019-08-28 13:35 | Infectious Diseases Prog Note ---
Assessment/Plan Assessment/Plan IMPRESSION: 1. COVID-19 disease 2. Strep group B UTI. 3. BPH. 4. Hypertension. 5. Obesity. 6. Schizoaffective disorder, depressive type RECOMMENDATION: Continue Amoxicillin. Repeat COVID-19 tests. Subjective ROS Limited/Unobtainable: Yes Allergies: Coded Allergies: No Known Allergies (Verified , 06/19/07) Objective Vital Signs Last 24 Hour Vital Signs Date Time Temp Pulse Resp B/P (MAP) Pulse Ox O2 Delivery O2 Flow Rate FiO2 08/28/19 12:00 97.9 69 18 125/61 (82) 97 08/28/19 10:26 86 125/70 08/28/19 09:00 Room Air 08/28/19 08:00 97.7 86 20 125/70 (88) 96 08/28/19 08:00 78 08/28/19 04:00 68 08/28/19 04:00 97.9 88 19 130/67 (88) 95 08/28/19 00:00 70 08/27/19 21:29 79 145/78 08/27/19 21:00 Room Air 08/27/19 20:00 98.9 98 18 124/80 (95) 95 08/27/19 20:00 88 08/27/19 16:00 97.7 79 20 137/78 (97) 98 08/27/19 16:00 71 Height (Feet): 5 Height (Inches): 10.00 Weight (Pounds): 219 General Appearance: no acute distress HEENT: mucous membranes moist Respiratory/Chest: lungs clear Cardiovascular: normal rate Abdomen: soft, non tender Extremities: no edema Neurologic/Psychiatric: other - sleeping Current Medications Medications (Trade) Dose Ordered Sig/Abilio Route PRN Reason Start Time Stop Time Status Last Admin Dose Admin Acetaminophen (Tylenol) 650 mg EVERY 6 HOURS PRN ORAL Temp >100.5 08/25/19 00:15 09/24/19 00:14 08/27/19 10:26 Albuterol Sulfate (Proventil MDI) 2 puff Q4H PRN INH Shortness of Breath 08/25/19 00:15 11/23/19 00:14 Amoxicillin (Amoxil) 500 mg EVERY 12 HOURS ORAL 08/28/19 21:00 09/03/19 20:59 Enoxaparin Sodium (Lovenox) 40 mg DAILY SUBQ 08/26/19 11:00 11/24/19 10:59 08/28/19 10:28 Fluoxetine HCl (PROzac) 20 mg DAILY ORAL 08/26/19 09:00 09/25/19 08:59 08/28/19 10:26 Metoprolol Tartrate (Lopressor) 25 mg Q12HR ORAL 08/27/19 21:00 11/25/19 20:59 08/28/19 10:26 Olanzapine (ZyPREXA) 20 mg BEDTIME ORAL 08/25/19 21:00 10/09/19 20:59 08/27/19 21:29 Tamsulosin HCl (Flomax) 0.4 mg QHS ORAL 08/25/19 21:00 09/24/19 20:59 08/27/19 21:29 Toni Colon MD Aug 28, 2019 13:35
--- NOTE | 2019-08-28 14:30 | NUR ---
NURSE NOTES: Covid swab done and sent to lab.
[2019-08-28 16:00] VITALS: BP 119/69
--- NOTE | 2019-08-28 19:30 | NUR ---
HAND-OFF: Report given to
--- NOTE | 2019-08-28 19:31 | NUR ---
NURSE NOTES: Got report from Carey RN. Pt in stable condition. No s/s of distress or discomfort noted. Pt resting in bed comfortably. Bed in low and locked position, call light within reach, bedside table within reach. Continue to monitor.
[2019-08-28 20:00] VITALS: BP 120/76
--- NOTE | 2019-08-28 20:11 | General Progress Note ---
Assessment/Plan Problem List: (1) Sepsis ICD Codes: A41.9 - Sepsis, unspecified organism SNOMED: 66488292 Qualifiers: Qualified Codes: A41.9 - Sepsis, unspecified organism (2) UTI (urinary tract infection) ICD Codes: N39.0 - Urinary tract infection, site not specified SNOMED: 23642414 Qualifiers: Qualified Codes: N30.00 - Acute cystitis without hematuria (3) Suspected 2019 novel coronavirus infection ICD Codes: R68.89 - Other general symptoms and signs SNOMED: 775579356 Status: progressing Assessment/Plan: abnormal ekg covid positive resp insuff reviewed chart pna uti sepsis reviewed chart Subjective ROS Limited/Unobtainable: Yes Allergies: Coded Allergies: No Known Allergies (Verified , 06/19/07) Objective Last 24 Hour Vital Signs Date Time Temp Pulse Resp B/P (MAP) Pulse Ox O2 Delivery O2 Flow Rate FiO2 08/28/19 16:00 99.9 74 20 119/69 (86) 98 08/28/19 16:00 64 08/28/19 12:00 97.9 69 18 125/61 (82) 97 08/28/19 12:00 85 08/28/19 10:26 86 125/70 08/28/19 09:00 Room Air 08/28/19 08:00 97.7 86 20 125/70 (88) 96 08/28/19 08:00 78 08/28/19 04:00 68 08/28/19 04:00 97.9 88 19 130/67 (88) 95 08/28/19 00:00 70 08/27/19 21:29 79 145/78 08/27/19 21:00 Room Air Intake and Output 08/27/19 08/28/19 19:00 07:00 Intake Total 730 ml Balance 730 ml Intake Oral 730 ml # Voids 3 1 # Bowel Movements 1 1 Height (Feet): 5 Height (Inches): 10.00 Weight (Pounds): 219 Respiratory/Chest: lungs clear Abdomen: soft Louisa Aburto MD Aug 28, 2019 20:11
[2019-08-28] MEDS: OLANZapine 10mg tab ORAL SCH (21:25)
[2019-08-28] MEDS: Tamsulosin 0.4mg cap ORAL SCH (21:26)
--- NOTE | 2019-08-28 23:41 | Pulmonology Progress Note ---
Assessment/Plan Assessment/Plan Pulmonary Progress Note HPI Patient is an 79-year-old man with a past medical history of hypertension and psychiatric illness. Noted to have fever today. His shelter has multiple patients positive for COVID19. Patient has noted cough and congestion. Denies any other complaints. He denies any chest pain. No nausea vomiting or diarrhea. Patient is very hard of hearing so history is limited. Stable pulmonary Status Allergies: No Known Allergies Past Medical History: Hypertension, COPD, DM, BPH, Umbilical Hernia and Psychiatric illness Pertinent Family History: none Social History: Denies: smoking All Other Systems: negative except mentioned in HPI Physical Exam Vital Signs Noted General Appearance: well appearing, no apparent distress, alert Head: normocephalic, atraumatic Eyes: bilateral eye PERRL, bilateral eye EOMI ENT: hearing grossly normal, normal pharynx Neck: full range of motion, supple, no meningismus Respiratory: chest non-tender, lungs clear, normal breath sounds Cardiovascular: regular rate, rhythm, no murmur Gastrointestinal: normal bowel sounds, non tender, no mass, no organomegaly, no bruit, non-distended Musculoskeletal: back normal, normal range of motion Neurologic: alert, grossly normal Impression: UTI BPH Sepsis Suspected 2019 novel coronavirus infection COPD HTN DM Psychiatric Illness Plan: IV Antibiotics started. PTAmedications O2 PRN Albuterol PRN PPX Await cultures/viral studies EKG: Rate: normal Rhythm: NSR ST Segments: no acute changes Chest X-Ray: no effusion, no pneumothorax, no acute cardiopulmonary disease, other - Atelectasis at the bases Subjective ROS Limited/Unobtainable: No Constitutional: Denies: fever Psychiatric: Reports: other - refuses IV medications Allergies: Coded Allergies: No Known Allergies (Verified , 06/19/07) Objective Last 24 Hour Vital Signs Date Time Temp Pulse Resp B/P (MAP) Pulse Ox O2 Delivery O2 Flow Rate FiO2 08/28/19 21:25 68 120/74 08/28/19 16:00 99.9 74 20 119/69 (86) 98 08/28/19 16:00 64 08/28/19 12:00 97.9 69 18 125/61 (82) 97 08/28/19 12:00 85 08/28/19 10:26 86 125/70 08/28/19 09:00 Room Air 08/28/19 08:00 97.7 86 20 125/70 (88) 96 08/28/19 08:00 78 08/28/19 04:00 68 08/28/19 04:00 97.9 88 19 130/67 (88) 95 08/28/19 00:00 70 Intake and Output 08/27/19 08/28/19 19:00 07:00 Intake Total 730 ml Balance 730 ml Intake Oral 730 ml # Voids 3 1 # Bowel Movements 1 1 General Appearance: no acute distress HEENT: mucous membranes moist Abdomen: soft, non tender Extremities: no edema Neurologic/Psychiatric: other - sleeping Current Medications Medications (Trade) Dose Ordered Sig/Abilio Route PRN Reason Start Time Stop Time Status Last Admin Dose Admin Acetaminophen (Tylenol) 650 mg EVERY 6 HOURS PRN ORAL Temp >100.5 08/25/19 00:15 09/24/19 00:14 08/27/19 10:26 Albuterol Sulfate (Proventil MDI) 2 puff Q4H PRN INH Shortness of Breath 08/25/19 00:15 11/23/19 00:14 Amoxicillin (Amoxil) 500 mg EVERY 12 HOURS ORAL 08/28/19 21:00 09/03/19 20:59 08/28/19 21:25 Enoxaparin Sodium (Lovenox) 40 mg DAILY SUBQ 08/26/19 11:00 11/24/19 10:59 08/28/19 10:28 Fluoxetine HCl (PROzac) 20 mg DAILY ORAL 08/26/19 09:00 09/25/19 08:59 08/28/19 10:26 Metoprolol Tartrate (Lopressor) 25 mg Q12HR ORAL 08/27/19 21:00 11/25/19 20:59 08/28/19 21:25 Olanzapine (ZyPREXA) 20 mg BEDTIME ORAL 08/25/19 21:00 10/09/19 20:59 08/28/19 21:25 Tamsulosin HCl (Flomax) 0.4 mg QHS ORAL 08/25/19 21:00 09/24/19 20:59 08/28/19 21:26 Karthikeyan Morris MD Aug 28, 2019 23:41
[2019-08-29] VITALS: BP 122/75
--- NOTE | 2019-08-29 00:29 | Progress Note ---
DATE: 08/28/2019 SUBJECTIVE: Patient is in bed. No acute distress noted. The patient is depressed, low energy. Still states that he wants to , however, does not have any suicidal ideation. MENTAL STATUS EXAMINATION: Alert and oriented to time, self, place, and situation. Mood is depressed. Affect is blunted, congruent. Thought process is linear. Thought content, no suicidal or homicidal ideation. Cognition is intact. Insight and judgment, fair. ASSESSMENT: Schizoaffective disorder, depressed type. PLAN: 1. Zyprexa 20 mg. 2. Prozac 20 mg 3. Discussed with the nurse. Aryan Hernández M.D. DR: NORMA JOB#: [id number] CC:
[2019-08-29 04:08] VITALS: BP 133/60
--- NOTE | 2019-08-29 07:30 | NUR ---
HAND-OFF: Report given to Kirstin DAILY.
--- NOTE | 2019-08-29 07:35 | NUR ---
NURSE NOTES: Received report from KILLIAN Bruner. Observed pt sleeping, no s/sx of acute distress. MD aware that pt does not have IV site, per RN report. Bed on lowest position, call light within reach. Will continue plan of care.
[2019-08-29 08:00] VITALS: BP 140/81
[2019-08-29] MEDS: Enoxaparin 40mg Inj SUBQ SCH (08:38)
--- NOTE | 2019-08-29 10:56 | Cardiac Electrophysiology PN ---
Assessment/Plan Assessment/Plan 1. Sinus tachycardia due to fever and sepsis. Heart rate is better on antibiotic per ID. Resolved 2. Short run of atrial fib with RVR on Lopressor 25 bid 3. NSVT 9 beats. Echo still pending Covid 4. Hypertension, on Lopressor 5. Benign prostatic hypertrophy. 6. Obesity. 7. COVID-19 test result is positive on 08/23 and repeat is pending Repeat Pending DW RN Subjective Subjective In SR in Covid isolation. No more atrial fib or NSVT. No events. Awaiting LE duplex and abd US Objective Last 24 Hour Vital Signs Date Time Temp Pulse Resp B/P (MAP) Pulse Ox O2 Delivery O2 Flow Rate FiO2 08/29/19 08:40 70 140/81 08/29/19 08:00 98.2 70 18 140/81 (100) 97 08/29/19 04:08 97.7 67 16 133/60 (84) 96 08/29/19 04:00 57 08/29/19 00:00 54 08/29/19 00:00 98.5 70 20 122/75 (91) 96 08/28/19 21:33 76 18 97 Room Air 21 08/28/19 21:25 68 120/74 08/28/19 21:00 Room Air 08/28/19 20:00 98.0 68 20 120/76 (91) 95 08/28/19 20:00 66 08/28/19 16:00 99.9 74 20 119/69 (86) 98 08/28/19 16:00 64 08/28/19 12:00 97.9 69 18 125/61 (82) 97 08/28/19 12:00 85 Intake and Output 08/28/19 08/29/19 19:00 07:00 Intake Total 360 ml Balance 360 ml Intake Oral 360 ml # Voids 3 3 # Bowel Movements 1 1 Objective HEAD AND NECK: No JVD. LUNGS: Coarse rhonchi. CARDIOVASCULAR: Regular S1 and S2 with no gallop. ABDOMEN: Soft. EXTREMITIES: 1+ pitting edema. Robert Guerrero MD Aug 29, 2019 10:56
--- NOTE | 2019-08-29 11:56 | Infectious Diseases Prog Note ---
Assessment/Plan Assessment/Plan IMPRESSION: 1. COVID-19 disease 2. Strep group B UTI. 3. BPH. 4. Hypertension. 5. Obesity. 6. Schizoaffective disorder, depressive type RECOMMENDATION: Continue Amoxicillin until tomorrow Repeat COVID-19 tests. Subjective ROS Limited/Unobtainable: Yes Constitutional: Denies: fever Allergies: Coded Allergies: No Known Allergies (Verified , 06/19/07) Objective Vital Signs Last 24 Hour Vital Signs Date Time Temp Pulse Resp B/P (MAP) Pulse Ox O2 Delivery O2 Flow Rate FiO2 08/29/19 08:40 70 140/81 08/29/19 08:00 98.2 70 18 140/81 (100) 97 08/29/19 04:08 97.7 67 16 133/60 (84) 96 08/29/19 04:00 57 08/29/19 00:00 54 08/29/19 00:00 98.5 70 20 122/75 (91) 96 08/28/19 21:33 76 18 97 Room Air 21 08/28/19 21:25 68 120/74 08/28/19 21:00 Room Air 08/28/19 20:00 98.0 68 20 120/76 (91) 95 08/28/19 20:00 66 08/28/19 16:00 99.9 74 20 119/69 (86) 98 08/28/19 16:00 64 08/28/19 12:00 97.9 69 18 125/61 (82) 97 08/28/19 12:00 85 Height (Feet): 5 Height (Inches): 10.00 Weight (Pounds): 219 General Appearance: no acute distress HEENT: mucous membranes moist Respiratory/Chest: lungs clear Cardiovascular: normal rate Abdomen: soft, non tender Extremities: no edema Current Medications Medications (Trade) Dose Ordered Sig/Abilio Route PRN Reason Start Time Stop Time Status Last Admin Dose Admin Acetaminophen (Tylenol) 650 mg EVERY 6 HOURS PRN ORAL Temp >100.5 08/25/19 00:15 09/24/19 00:14 08/27/19 10:26 Albuterol Sulfate (Proventil MDI) 2 puff Q4H PRN INH Shortness of Breath 08/25/19 00:15 11/23/19 00:14 Amoxicillin (Amoxil) 500 mg EVERY 12 HOURS ORAL 08/28/19 21:00 09/03/19 20:59 08/29/19 08:39 Enoxaparin Sodium (Lovenox) 40 mg DAILY SUBQ 08/26/19 11:00 11/24/19 10:59 08/29/19 08:38 Fluoxetine HCl (PROzac) 20 mg DAILY ORAL 08/26/19 09:00 09/25/19 08:59 08/29/19 08:40 Metoprolol Tartrate (Lopressor) 25 mg Q12HR ORAL 08/27/19 21:00 11/25/19 20:59 08/29/19 08:40 Olanzapine (ZyPREXA) 20 mg BEDTIME ORAL 08/25/19 21:00 10/09/19 20:59 08/28/19 21:25 Tamsulosin HCl (Flomax) 0.4 mg QHS ORAL 08/25/19 21:00 09/24/19 20:59 08/28/19 21:26 Toni Colon MD Aug 29, 2019 11:56
[2019-08-29 12:00] VITALS: BP 131/68
[2019-08-29 16:00] VITALS: BP 129/80
--- NOTE | 2019-08-29 17:46 | Hematology/Onc Progress Note ---
Assessment/Plan Assessment/Plan Assessment and Recs: # Pancytopenia - potential causes multifactorial, evaluate liver and viral etiologies to begin, also could be related to underlying medications patient has received. Likely COVID19++ related --> Hep panel and HIV ordered --> NEG --> US abd to evaluate for cirrhosis and hsm ordered as needed --> Peripheral smear ordered to evaluate for blasts /schistocytes --> is wnl --> abx and other meds have been reviewed --> ok for ppx if plt >50k w/ either heparin or lovenox --> Transfuse if Plt < 20k and fever, or if Plt < 10k without fever --> wbc trend 5-->4 -> plt trend 134-->120k-->133-->150 --> abx: amoxicillin # Anemia due to chronic disease --> trend as needed hgb 13 --> no evidence of hemolysis is noted # Sepsis r/o infection --> abx as needed # UTI (urinary tract infection) --> id eval # Suspected 2019 novel coronavirus infection --> abx, per id, o2,duonebs # Psych d/o --> per Farhadi The timing of this note does not necessarily reflect the time of the patient was seen. Greatly appreciate consultation. Subjective Allergies: Coded Allergies: No Known Allergies (Verified , 06/19/07) Subjective 08/25 labs noted, cbc is pending from am, lower fever 08/26 seen by crds and psych, on zyprexa, less agitated overnight 08/27 no bleeding, labs reviewed, no night sweats, on lopressor for high bp 08/28 on amox, awaiting le duplex and us abd, no acute distress Objective Objective Current Medications Medications (Trade) Dose Ordered Sig/Abilio Route PRN Reason Start Time Stop Time Status Last Admin Dose Admin Acetaminophen (Tylenol) 650 mg EVERY 6 HOURS PRN ORAL Temp >100.5 08/25/19 00:15 09/24/19 00:14 08/27/19 10:26 Albuterol Sulfate (Proventil MDI) 2 puff Q4H PRN INH Shortness of Breath 08/25/19 00:15 11/23/19 00:14 Amoxicillin (Amoxil) 500 mg EVERY 12 HOURS ORAL 08/28/19 21:00 09/03/19 20:59 08/29/19 08:39 Enoxaparin Sodium (Lovenox) 40 mg DAILY SUBQ 08/26/19 11:00 11/24/19 10:59 08/29/19 08:38 Fluoxetine HCl (PROzac) 20 mg DAILY ORAL 08/26/19 09:00 09/25/19 08:59 08/29/19 08:40 Metoprolol Tartrate (Lopressor) 25 mg Q12HR ORAL 08/27/19 21:00 11/25/19 20:59 08/29/19 08:40 Olanzapine (ZyPREXA) 20 mg BEDTIME ORAL 08/25/19 21:00 10/09/19 20:59 08/28/19 21:25 Tamsulosin HCl (Flomax) 0.4 mg QHS ORAL 08/25/19 21:00 09/24/19 20:59 08/28/19 21:26 Last 24 Hour Vital Signs Date Time Temp Pulse Resp B/P (MAP) Pulse Ox O2 Delivery O2 Flow Rate FiO2 08/29/19 16:00 97.7 60 20 129/80 (96) 97 08/29/19 12:00 98.6 65 20 131/68 (89) 96 08/29/19 11:46 59 08/29/19 09:00 Room Air 08/29/19 08:55 70 08/29/19 08:40 70 140/81 08/29/19 08:00 98.2 70 18 140/81 (100) 97 08/29/19 04:08 97.7 67 16 133/60 (84) 96 08/29/19 04:00 57 08/29/19 00:00 54 08/29/19 00:00 98.5 70 20 122/75 (91) 96 08/28/19 21:33 76 18 97 Room Air 21 08/28/19 21:25 68 120/74 08/28/19 21:00 Room Air 08/28/19 20:00 98.0 68 20 120/76 (91) 95 08/28/19 20:00 66 08/28/19 16:00 99.9 74 20 119/69 (86) 98 08/28/19 16:00 64 08/28/19 12:00 97.9 69 18 125/61 (82) 97 08/28/19 12:00 85 08/28/19 10:26 86 125/70 08/28/19 09:00 Room Air 08/28/19 08:00 97.7 86 20 125/70 (88) 96 08/28/19 08:00 78 08/28/19 04:00 68 08/28/19 04:00 97.9 88 19 130/67 (88) 95 08/28/19 00:00 70 08/27/19 21:29 79 145/78 08/27/19 21:00 Room Air 08/27/19 20:00 98.9 98 18 124/80 (95) 95 08/27/19 20:00 88 Intake and Output 08/28/19 08/29/19 19:00 07:00 Intake Total 360 ml Balance 360 ml Intake Oral 360 ml # Voids 3 3 # Bowel Movements 1 1 Labs Test 08/27/19 05:56 White Blood Count 4.3 K/UL (4.8-10.8) Red Blood Count 4.61 M/UL (4.70-6.10) Hemoglobin 14.2 G/DL (14.2-18.0) Hematocrit 41.3 % (42.0-52.0) Mean Corpuscular Volume 90 FL (80-99) Mean Corpuscular Hemoglobin 30.9 PG (27.0-31.0) Mean Corpuscular Hemoglobin Concent 34.5 G/DL (32.0-36.0) Red Cell Distribution Width 11.4 % (11.6-14.8) Platelet Count 151 K/UL (150-450) Mean Platelet Volume 8.2 FL (6.5-10.1) Neutrophils (%) (Auto) 46.5 % (45.0-75.0) Lymphocytes (%) (Auto) 38.0 % (20.0-45.0) Monocytes (%) (Auto) 12.1 % (1.0-10.0) Eosinophils (%) (Auto) 2.3 % (0.0-3.0) Basophils (%) (Auto) 1.0 % (0.0-2.0) Sodium Level 140 MMOL/L (136-145) Potassium Level 4.1 MMOL/L (3.5-5.1) Chloride Level 104 MMOL/L (98-107) Carbon Dioxide Level 26 MMOL/L (21-32) Anion Gap 10 mmol/L (5-15) Blood Urea Nitrogen 18 mg/dL (7-18) Creatinine 1.4 MG/DL (0.55-1.30) Estimat Glomerular Filtration Rate 48.8 mL/min (>60) Glucose Level 133 MG/DL (74-106) Calcium Level 9.1 MG/DL (8.5-10.1) Troponin I 0.000 ng/mL (0.000-0.056) Pro-B-Type Natriuretic Peptide 128 pg/mL (0-125) Height (Feet): 5 Height (Inches): 10.00 Weight (Pounds): 219 Objective Vitals: reviewed General: NAD HEENT: nc, at Neck: supple Chest: clear breath sounds bilaterally Cardiovascular: RRR, no s3, s4 Abdomen: soft, nontender, nd Extremities: no cce, normal range of motion Neuro: alert and oriented Anival Peñaloza MD Aug 29, 2019 17:45
--- NOTE | 2019-08-29 19:39 | NUR ---
HAND-OFF: Report given to KILLIAN Bruner. Pt in stable condition, endorsed plan of care.
--- NOTE | 2019-08-29 19:40 | NUR ---
NURSE NOTES: Got report from Kirstin DAILY. Pt in stable condition. Denies any pain. Denies any n/v or SOB. No s/s of distress or discomfort noted. Pt resting in bed comfortably. Bed in low and locked position, call light within reach, bedside table within reach. Continue to monitor.
[2019-08-29 20:00] VITALS: BP 121/71
--- NOTE | 2019-08-29 20:24 | General Progress Note ---
Assessment/Plan Problem List: (1) Sepsis ICD Codes: A41.9 - Sepsis, unspecified organism SNOMED: 25740853 Qualifiers: Qualified Codes: A41.9 - Sepsis, unspecified organism (2) UTI (urinary tract infection) ICD Codes: N39.0 - Urinary tract infection, site not specified SNOMED: 53576645 Qualifiers: Qualified Codes: N30.00 - Acute cystitis without hematuria (3) Suspected 2019 novel coronavirus infection ICD Codes: R68.89 - Other general symptoms and signs SNOMED: 773676573 Status: progressing Assessment/Plan: no cp no sob afebrile covid positive pna uti sepsis reviewed chart Subjective ROS Limited/Unobtainable: Yes Allergies: Coded Allergies: No Known Allergies (Verified , 06/19/07) Objective Last 24 Hour Vital Signs Date Time Temp Pulse Resp B/P (MAP) Pulse Ox O2 Delivery O2 Flow Rate FiO2 08/29/19 16:34 62 08/29/19 16:00 97.7 60 20 129/80 (96) 97 08/29/19 12:00 98.6 65 20 131/68 (89) 96 08/29/19 11:46 59 08/29/19 09:00 Room Air 08/29/19 08:55 70 08/29/19 08:40 70 140/81 08/29/19 08:00 98.2 70 18 140/81 (100) 97 08/29/19 04:08 97.7 67 16 133/60 (84) 96 08/29/19 04:00 57 08/29/19 00:00 54 08/29/19 00:00 98.5 70 20 122/75 (91) 96 08/28/19 21:33 76 18 97 Room Air 21 08/28/19 21:25 68 120/74 08/28/19 21:00 Room Air Intake and Output 08/28/19 08/29/19 19:00 07:00 Intake Total 360 ml Balance 360 ml Intake Oral 360 ml # Voids 3 3 # Bowel Movements 1 1 Height (Feet): 5 Height (Inches): 10.00 Weight (Pounds): 219 Louisa Aburto MD Aug 29, 2019 20:24
[2019-08-29] MEDS: OLANZapine 10mg tab ORAL SCH (21:10)
[2019-08-29] MEDS: Tamsulosin 0.4mg cap ORAL SCH (21:10)
--- NOTE | 2019-08-29 23:54 | Pulmonology Progress Note ---
Assessment/Plan Assessment/Plan Pulmonary Progress Note HPI Patient is an 79-year-old man with a past medical history of hypertension and psychiatric illness. His halfway has multiple patients positive for COVID19. Patient has noted cough and congestion. Denies any other complaints. He denies any chest pain. No nausea vomiting or diarrhea. Patient is very hard of hearing so history is limited. Stable pulmonary Status Allergies: No Known Allergies Past Medical History: Hypertension, COPD, DM, BPH, Umbilical Hernia and Psychiatric illness Pertinent Family History: none Social History: Denies: smoking All Other Systems: negative except mentioned in HPI Physical Exam Vital Signs Noted General Appearance: well appearing, no apparent distress, alert Head: normocephalic, atraumatic Eyes: bilateral eye PERRL, bilateral eye EOMI ENT: hearing grossly normal, normal pharynx Neck: full range of motion, supple, no meningismus Respiratory: chest non-tender, lungs clear, normal breath sounds Cardiovascular: regular rate, rhythm, no murmur Gastrointestinal: normal bowel sounds, non tender, no mass, no organomegaly, no bruit, non-distended Musculoskeletal: back normal, normal range of motion Neurologic: alert, grossly normal Impression: UTI BPH Sepsis Suspected 2019 novel coronavirus infection COPD HTN DM Psychiatric Illness Plan: IV Antibiotics started. PTAmedications O2 PRN Albuterol PRN PPX Await cultures/viral studies EKG: Rate: normal Rhythm: NSR ST Segments: no acute changes Chest X-Ray: no effusion, no pneumothorax, no acute cardiopulmonary disease, other - Atelectasis at the bases Subjective ROS Limited/Unobtainable: No Constitutional: Denies: fever Psychiatric: Reports: other - refuses IV medications Allergies: Coded Allergies: No Known Allergies (Verified , 06/19/07) Objective Last 24 Hour Vital Signs Date Time Temp Pulse Resp B/P (MAP) Pulse Ox O2 Delivery O2 Flow Rate FiO2 08/29/19 21:10 67 121/71 08/29/19 21:00 Room Air 08/29/19 20:00 97.9 67 18 121/71 (88) 95 08/29/19 20:00 63 08/29/19 16:34 62 08/29/19 16:00 97.7 60 20 129/80 (96) 97 08/29/19 12:00 98.6 65 20 131/68 (89) 96 08/29/19 11:46 59 08/29/19 09:00 Room Air 08/29/19 08:55 70 08/29/19 08:40 70 140/81 08/29/19 08:00 98.2 70 18 140/81 (100) 97 08/29/19 04:08 97.7 67 16 133/60 (84) 96 08/29/19 04:00 57 08/29/19 00:00 54 08/29/19 00:00 98.5 70 20 122/75 (91) 96 Intake and Output 08/28/19 08/29/19 19:00 07:00 Intake Total 360 ml Balance 360 ml Intake Oral 360 ml # Voids 3 3 # Bowel Movements 1 1 General Appearance: no acute distress HEENT: mucous membranes moist Abdomen: soft, non tender Extremities: no edema Neurologic/Psychiatric: other - sleeping Current Medications Medications (Trade) Dose Ordered Sig/Abilio Route PRN Reason Start Time Stop Time Status Last Admin Dose Admin Acetaminophen (Tylenol) 650 mg EVERY 6 HOURS PRN ORAL Temp >100.5 08/25/19 00:15 09/24/19 00:14 08/27/19 10:26 Albuterol Sulfate (Proventil MDI) 2 puff Q4H PRN INH Shortness of Breath 08/25/19 00:15 11/23/19 00:14 Amoxicillin (Amoxil) 500 mg EVERY 12 HOURS ORAL 08/28/19 21:00 09/03/19 20:59 08/29/19 21:10 Enoxaparin Sodium (Lovenox) 40 mg DAILY SUBQ 08/26/19 11:00 11/24/19 10:59 08/29/19 08:38 Fluoxetine HCl (PROzac) 20 mg DAILY ORAL 08/26/19 09:00 09/25/19 08:59 08/29/19 08:40 Metoprolol Tartrate (Lopressor) 25 mg Q12HR ORAL 08/27/19 21:00 11/25/19 20:59 08/29/19 21:10 Olanzapine (ZyPREXA) 20 mg BEDTIME ORAL 08/25/19 21:00 10/09/19 20:59 08/29/19 21:10 Tamsulosin HCl (Flomax) 0.4 mg QHS ORAL 08/25/19 21:00 09/24/19 20:59 08/29/19 21:10 Karthikeyan Morris MD Aug 29, 2019 23:54
[2019-08-30] VITALS: BP 124/74
[2019-08-30 04:00] VITALS: BP 129/72
--- NOTE | 2019-08-30 04:29 | Progress Note ---
DATE: 08/29/2019 SUBJECTIVE: The patient is presenting with depressed mood, anhedonia, worthlessness, and hopelessness. MENTAL STATUS EXAMINATION: Alert and oriented to time, self, place, and situation. Mood is depressed. Affect is constricted, congruent. Thought process is concrete. Thought content, no suicidal or homicidal ideation. Cognition is impaired. ASSESSMENT: Schizoaffective disorder, depressed type. PLAN: Continue current medications. Aryan Hernández M.D. DR: Adarsh JOB#: [id number] CC:
--- NOTE | 2019-08-30 06:04 | Hematology/Onc Progress Note ---
Assessment/Plan Assessment/Plan Assessment and Recs: # Pancytopenia - potential causes multifactorial, evaluate liver and viral etiologies to begin, also could be related to underlying medications patient has received. Likely COVID19++ related --> Hep panel and HIV ordered --> NEG --> US abd to evaluate for cirrhosis and hsm ordered as needed --> Peripheral smear ordered to evaluate for blasts /schistocytes --> is wnl --> abx and other meds have been reviewed --> ok for ppx if plt >50k w/ either heparin or lovenox --> Transfuse if Plt < 20k and fever, or if Plt < 10k without fever --> wbc trend 5-->4 -> plt trend 134-->120k-->133-->150 --> abx: amoxicillin # Anemia due to chronic disease --> trend as needed hgb 13 --> no evidence of hemolysis is noted # Sepsis r/o infection --> abx as needed # UTI (urinary tract infection) --> id eval --> abx given # Suspected 2019 novel coronavirus infection --> abx, per id, o2,duonebs # Psych d/o --> per Dr. Hernández The timing of this note does not necessarily reflect the time of the patient was seen. Greatly appreciate consultation. Subjective Constitutional: Denies: no symptoms, chills, fever, malaise, weakness, other Cardiovascular: Denies: no symptoms, chest pain, edema, irregular heart rate, lightheadedness, palpitations, syncope, other Respiratory: Denies: no symptoms, cough, shortness of breath, SOB with excertion, SOB at rest, sputum, wheezing, other Gastrointestinal/Abdominal: Denies: no symptoms, abdomen distended, abdominal pain, black stools, tarry stools, blood in stool, constipated, diarrhea, difficulty swallowing, nausea, poor appetite, poor fluid intake, rectal bleeding , vomiting, other Genitourinary: Denies: no symptoms, burning, discharge, frequency, flank pain, hematuria, incontinence, pain, urgency, other Neurologic/Psychiatric: Denies: no symptoms, anxiety, depressed, emotional problems, headache, numbness, paresthesia, pre-existing deficit, seizure, tingling, tremors, weakness, other Endocrine: Denies: no symptoms, excessive sweating, flushing, intolerance to cold, intolerance to heat, increased hunger, increased thirst, increased urine, unexplained weight gain, unexplained weight loss, other Allergies: Coded Allergies: No Known Allergies (Verified , 06/19/07) Subjective 08/25 labs noted, cbc is pending from am, lower fever 08/26 seen by crds and psych, on zyprexa, less agitated overnight 08/27 no bleeding, labs reviewed, no night sweats, on lopressor for high bp 08/28 on amox, awaiting le duplex and us abd, no acute distress 08/29 no events, no bleeding, no night sweats, labs noted, cbc ordered Objective Objective Current Medications Medications (Trade) Dose Ordered Sig/Abilio Route PRN Reason Start Time Stop Time Status Last Admin Dose Admin Acetaminophen (Tylenol) 650 mg EVERY 6 HOURS PRN ORAL Temp >100.5 08/25/19 00:15 09/24/19 00:14 08/27/19 10:26 Albuterol Sulfate (Proventil MDI) 2 puff Q4H PRN INH Shortness of Breath 08/25/19 00:15 11/23/19 00:14 Amoxicillin (Amoxil) 500 mg EVERY 12 HOURS ORAL 08/28/19 21:00 09/03/19 20:59 08/29/19 21:10 Enoxaparin Sodium (Lovenox) 40 mg DAILY SUBQ 08/26/19 11:00 11/24/19 10:59 08/29/19 08:38 Fluoxetine HCl (PROzac) 20 mg DAILY ORAL 08/26/19 09:00 09/25/19 08:59 08/29/19 08:40 Metoprolol Tartrate (Lopressor) 25 mg Q12HR ORAL 08/27/19 21:00 11/25/19 20:59 08/29/19 21:10 Olanzapine (ZyPREXA) 20 mg BEDTIME ORAL 08/25/19 21:00 10/09/19 20:59 08/29/19 21:10 Tamsulosin HCl (Flomax) 0.4 mg QHS ORAL 08/25/19 21:00 09/24/19 20:59 08/29/19 21:10 Last 24 Hour Vital Signs Date Time Temp Pulse Resp B/P (MAP) Pulse Ox O2 Delivery O2 Flow Rate FiO2 08/30/19 04:00 97.2 66 18 129/72 (91) 97 08/30/19 04:00 54 08/30/19 00:00 56 08/30/19 00:00 97.4 69 18 124/74 (91) 96 08/29/19 21:10 67 121/71 08/29/19 21:00 Room Air 08/29/19 20:04 68 18 95 Room Air 21 08/29/19 20:00 97.9 67 18 121/71 (88) 95 08/29/19 20:00 63 08/29/19 16:34 62 08/29/19 16:00 97.7 60 20 129/80 (96) 97 08/29/19 12:00 98.6 65 20 131/68 (89) 96 08/29/19 11:46 59 08/29/19 09:00 Room Air 08/29/19 08:55 70 08/29/19 08:40 70 140/81 08/29/19 08:00 98.2 70 18 140/81 (100) 97 08/29/19 04:08 97.7 67 16 133/60 (84) 96 08/29/19 04:00 57 08/29/19 00:00 54 08/29/19 00:00 98.5 70 20 122/75 (91) 96 08/28/19 21:33 76 18 97 Room Air 21 08/28/19 21:25 68 120/74 08/28/19 21:00 Room Air 08/28/19 20:00 98.0 68 20 120/76 (91) 95 08/28/19 20:00 66 08/28/19 16:00 99.9 74 20 119/69 (86) 98 08/28/19 16:00 64 08/28/19 12:00 97.9 69 18 125/61 (82) 97 08/28/19 12:00 85 08/28/19 10:26 86 125/70 08/28/19 09:00 Room Air 08/28/19 08:00 97.7 86 20 125/70 (88) 96 08/28/19 08:00 78 Height (Feet): 5 Height (Inches): 10.00 Weight (Pounds): 219 Objective Vitals: reviewed General: NAD HEENT: nc, at Neck: supple Chest: clear breath sounds bilaterally Cardiovascular: RRR, no s3, s4 Abdomen: soft, nontender, nd Extremities: no cce, normal range of motion Neuro: alert and oriented Anival Peñaloza MD Aug 30, 2019 06:04
--- NOTE | 2019-08-30 07:38 | NUR ---
HAND-OFF: Report given to Kirstin DAILY.
--- NOTE | 2019-08-30 07:39 | NUR ---
NURSE NOTES: Reported that pt has negative covid-[address] Aburto, but was positive on 08/23. Awaiting for new orders. Addendum: 08/30/19 at 0815 by Kirstin Obando RN Left a voicemail at Funmi Chino's office. Addendum: 08/30/19 at 1509 by Kirstin Obando RN Dr Colon ordered to re-swab the pt.
--- NOTE | 2019-08-30 07:40 | NUR ---
NURSE NOTES: Received report from KILLIAN Bruner. Pt A/O x3. Observed pt eating breakfast, no s/sx of acute distress. Denies any pain. Verbalized feeling of sadness and depression r/t being hospitalized, Dr Hernández made aware. Reassured pt and provided therapeutic communication. Bed on lowest position, call light within reach. Will continue plan of care.
[2019-08-30 08:00] VITALS: BP 162/96
[2019-08-30] MEDS: Enoxaparin 40mg Inj SUBQ SCH (08:52)
--- NOTE | 2019-08-30 11:10 | Infectious Diseases Prog Note ---
Assessment/Plan Assessment/Plan IMPRESSION: 1. COVID-19 disease Positive=08/23 Negative=08/27 2. Strep group B UTI. 3. BPH. 4. Hypertension. 5. Obesity. 6. Schizoaffective disorder, depressive type RECOMMENDATION: Discontinue Amoxicillin Repeat COVID-19 tests. Subjective ROS Limited/Unobtainable: Yes Constitutional: Denies: fever Allergies: Coded Allergies: No Known Allergies (Verified , 06/19/07) Objective Vital Signs Last 24 Hour Vital Signs Date Time Temp Pulse Resp B/P (MAP) Pulse Ox O2 Delivery O2 Flow Rate FiO2 08/30/19 08:54 68 162/96 08/30/19 08:00 97.6 68 19 162/96 (118) 96 08/30/19 07:46 66 08/30/19 04:00 97.2 66 18 129/72 (91) 97 08/30/19 04:00 54 08/30/19 00:00 56 08/30/19 00:00 97.4 69 18 124/74 (91) 96 08/29/19 21:10 67 121/71 08/29/19 21:00 Room Air 08/29/19 20:04 68 18 95 Room Air 21 08/29/19 20:00 97.9 67 18 121/71 (88) 95 08/29/19 20:00 63 08/29/19 16:34 62 08/29/19 16:00 97.7 60 20 129/80 (96) 97 08/29/19 12:00 98.6 65 20 131/68 (89) 96 08/29/19 11:46 59 Height (Feet): 5 Height (Inches): 10.00 Weight (Pounds): 219 General Appearance: no acute distress HEENT: mucous membranes moist Respiratory/Chest: lungs clear Cardiovascular: normal rate Abdomen: soft, non tender Extremities: no edema Neurologic/Psychiatric: other - sleeping Microbiology Date/Time Source Procedure Growth Status 08/28/19 16:30 Nasopharynx Coronavirus COVID-19 PCR (JANA) - Final Complete Current Medications Medications (Trade) Dose Ordered Sig/Abilio Route PRN Reason Start Time Stop Time Status Last Admin Dose Admin Acetaminophen (Tylenol) 650 mg EVERY 6 HOURS PRN ORAL Temp >100.5 08/25/19 00:15 09/24/19 00:14 08/27/19 10:26 Albuterol Sulfate (Proventil MDI) 2 puff Q4H PRN INH Shortness of Breath 08/25/19 00:15 11/23/19 00:14 Amoxicillin (Amoxil) 500 mg EVERY 12 HOURS ORAL 08/28/19 21:00 09/03/19 20:59 08/30/19 08:54 Enoxaparin Sodium (Lovenox) 40 mg DAILY SUBQ 08/26/19 11:00 11/24/19 10:59 08/30/19 08:52 Fluoxetine HCl (PROzac) 20 mg DAILY ORAL 08/26/19 09:00 09/25/19 08:59 08/30/19 08:54 Metoprolol Tartrate (Lopressor) 25 mg Q12HR ORAL 08/27/19 21:00 11/25/19 20:59 08/30/19 08:54 Olanzapine (ZyPREXA) 20 mg BEDTIME ORAL 08/25/19 21:00 10/09/19 20:59 08/29/19 21:10 Tamsulosin HCl (Flomax) 0.4 mg QHS ORAL 08/25/19 21:00 09/24/19 20:59 08/29/19 21:10 Toni Colon MD Aug 30, 2019 11:10
[2019-08-30 12:00] VITALS: BP 155/78
--- NOTE | 2019-08-30 12:13 | NUR ---
CASE MANAGEMENT:REVIEW 08/30/19 SI:COVID 19 PNEUMONIA 97.6 68 19 162/96 96% ON RA IS: AMOXICILLIN PO Q12 LOPRESSOR PO Q12 LOVENOX SQ QD PROZAC PO QD FLOMAX PO QHS ZYPREXA PO QHS : TELEMETRY STATUS DCP: FROM [facility] PLAN: COVID 19 ~ 08/23 DETECTED COVID ~ 08/27 NOT DETECTED COVID ~ 08/27 PENDING COVID ~ 08/29 PENDING
--- NOTE | 2019-08-30 12:34 | Cardiac Electrophysiology PN ---
Assessment/Plan Assessment/Plan 1. Sinus tachycardia due to fever and sepsis. Heart rate is better on antibiotic per ID. 2. Short run of atrial fib with RVR on Lopressor 25 bid 3. NSVT 9 beats. Echo still pending Covid negativity 4. Hypertension, on Lopressor 5. Benign prostatic hypertrophy. 6. Obesity. 7. COVID-19 test result is positive on 08/23 and Negative on 08/27. 3rd one pending today DW RN Subjective Subjective In SR in Covid isolation.First Covid was positive on 08/23. Second was negative on 08/27. Awaiting 3rd Covid that will be done today. No more atrial fib or NSVT. No events. Objective Last 24 Hour Vital Signs Date Time Temp Pulse Resp B/P (MAP) Pulse Ox O2 Delivery O2 Flow Rate FiO2 08/30/19 12:00 98.7 83 20 155/78 (103) 98 08/30/19 09:00 Room Air 08/30/19 08:54 68 162/96 08/30/19 08:00 97.6 68 19 162/96 (118) 96 08/30/19 07:46 66 08/30/19 04:00 97.2 66 18 129/72 (91) 97 08/30/19 04:00 54 08/30/19 00:00 56 08/30/19 00:00 97.4 69 18 124/74 (91) 96 08/29/19 21:10 67 121/71 08/29/19 21:00 Room Air 08/29/19 20:04 68 18 95 Room Air 21 08/29/19 20:00 97.9 67 18 121/71 (88) 95 08/29/19 20:00 63 08/29/19 16:34 62 08/29/19 16:00 97.7 60 20 129/80 (96) 97 Intake and Output 08/29/19 08/30/19 19:00 07:00 # Voids 3 Microbiology Date/Time Source Procedure Growth Status 08/28/19 16:30 Nasopharynx Coronavirus COVID-19 PCR (JANA) - Final Complete Objective HEAD AND NECK: No JVD. LUNGS: Coarse rhonchi. CARDIOVASCULAR: Regular S1 and S2 with no gallop. ABDOMEN: Soft. EXTREMITIES: 1+ pitting edema. Robert Guerrero MD Aug 30, 2019 12:34
[2019-08-30 16:00] VITALS: BP 141/60
--- NOTE | 2019-08-30 19:35 | NUR ---
NURSE NOTES: Received pt and report from KILLIAN Fulton. Observed pt sitting in chair at bedside. Pt is A/Ox3. library monitor is in placed; pt is SB (58 bpm). Pt refused IV access; MD aware. Bed is in the lowest position and locked. Call light and bedside table is within reach. No signs/symptoms of acute distress noted at this time. Will continue plan of care.
--- NOTE | 2019-08-30 19:46 | NUR ---
HAND-OFF: Report given to KILLIAN Haas. Pt in stable condition, endorsed plan of care.
[2019-08-30 20:00] VITALS: BP 139/67
--- NOTE | 2019-08-30 21:07 | General Progress Note ---
Assessment/Plan Problem List: (1) Sepsis ICD Codes: A41.9 - Sepsis, unspecified organism SNOMED: 00379960 Qualifiers: Qualified Codes: A41.9 - Sepsis, unspecified organism (2) UTI (urinary tract infection) ICD Codes: N39.0 - Urinary tract infection, site not specified SNOMED: 25909010 Qualifiers: Qualified Codes: N30.00 - Acute cystitis without hematuria (3) Suspected 2019 novel coronavirus infection ICD Codes: R68.89 - Other general symptoms and signs SNOMED: 461886346 Status: progressing Assessment/Plan: resp insuff covid positive not hypoxic improving pna uti sepsis reviewed chart Subjective ROS Limited/Unobtainable: Yes Allergies: Coded Allergies: No Known Allergies (Verified , 06/19/07) Objective Last 24 Hour Vital Signs Date Time Temp Pulse Resp B/P (MAP) Pulse Ox O2 Delivery O2 Flow Rate FiO2 08/30/19 16:15 56 08/30/19 16:00 97.7 69 20 141/60 (87) 96 08/30/19 12:00 98.7 83 20 155/78 (103) 98 08/30/19 11:44 58 08/30/19 09:00 Room Air 08/30/19 08:54 68 162/96 08/30/19 08:00 97.6 68 19 162/96 (118) 96 08/30/19 07:46 66 08/30/19 04:00 97.2 66 18 129/72 (91) 97 08/30/19 04:00 54 08/30/19 00:00 56 08/30/19 00:00 97.4 69 18 124/74 (91) 96 08/29/19 21:10 67 121/71 Intake and Output 08/29/19 08/30/19 19:00 07:00 # Voids 3 Height (Feet): 5 Height (Inches): 10.00 Weight (Pounds): 219 Louisa Aburto MD Aug 30, 2019 21:07
[2019-08-30] MEDS: OLANZapine 10mg tab ORAL SCH (21:47)
[2019-08-30] MEDS: Tamsulosin 0.4mg cap ORAL SCH (21:47)
[2019-08-31] VITALS: BP 141/69
--- NOTE | 2019-08-31 02:11 | Pulmonology Progress Note ---
Assessment/Plan Assessment/Plan Pulmonary Progress Note HPI Patient is an 79-year-old man with a past medical history of hypertension and psychiatric illness. His long term has multiple patients positive for COVID19. Patient has noted cough and congestion. Denies any other complaints. He denies any chest pain. No nausea vomiting or diarrhea. Patient is very hard of hearing so history is limited. Stable pulmonary Status Seen on 08/30/2019 Allergies: No Known Allergies Past Medical History: Hypertension, COPD, DM, BPH, Umbilical Hernia and Psychiatric illness Pertinent Family History: none Social History: Denies: smoking All Other Systems: negative except mentioned in HPI Physical Exam Vital Signs Noted General Appearance: well appearing, no apparent distress, alert Head: normocephalic, atraumatic Eyes: bilateral eye PERRL, bilateral eye EOMI ENT: hearing grossly normal, normal pharynx Neck: full range of motion, supple, no meningismus Respiratory: chest non-tender, lungs clear, normal breath sounds Cardiovascular: regular rate, rhythm, no murmur Gastrointestinal: normal bowel sounds, non tender, no mass, no organomegaly, no bruit, non-distended Musculoskeletal: back normal, normal range of motion Neurologic: alert, grossly normal Impression: UTI BPH Sepsis Suspected 2019 novel coronavirus infection COPD HTN DM Psychiatric Illness Plan: IV Antibiotics started. PTAmedications O2 PRN Albuterol PRN PPX Await cultures/viral studies EKG: Rate: normal Rhythm: NSR ST Segments: no acute changes Chest X-Ray: no effusion, no pneumothorax, no acute cardiopulmonary disease, other - Atelectasis at the bases Subjective ROS Limited/Unobtainable: No Constitutional: Denies: fever Psychiatric: Reports: other - refuses IV medications Allergies: Coded Allergies: No Known Allergies (Verified , 06/19/07) Objective Last 24 Hour Vital Signs Date Time Temp Pulse Resp B/P (MAP) Pulse Ox O2 Delivery O2 Flow Rate FiO2 08/30/19 21:47 71 139/67 08/30/19 21:00 Room Air 08/30/19 20:00 58 08/30/19 20:00 98.1 71 19 139/67 (91) 95 08/30/19 16:15 56 08/30/19 16:00 97.7 69 20 141/60 (87) 96 08/30/19 12:00 98.7 83 20 155/78 (103) 98 4/24/20 11:44 58 08/30/19 09:00 Room Air 08/30/19 08:54 68 162/96 08/30/19 08:00 97.6 68 19 162/96 (118) 96 08/30/19 07:46 66 08/30/19 04:00 97.2 66 18 129/72 (91) 97 08/30/19 04:00 54 Intake and Output 08/30/19 08/31/19 18:59 06:59 Intake Total 600 ml Balance 600 ml Intake Oral 600 ml # Voids 4 General Appearance: no acute distress HEENT: mucous membranes moist Abdomen: soft, non tender Extremities: no edema Neurologic/Psychiatric: other - sleeping Microbiology Date/Time Source Procedure Growth Status 08/28/19 16:30 Nasopharynx Coronavirus COVID-19 PCR (JANA) - Final Complete Current Medications Medications (Trade) Dose Ordered Sig/Abilio Route PRN Reason Start Time Stop Time Status Last Admin Dose Admin Acetaminophen (Tylenol) 650 mg EVERY 6 HOURS PRN ORAL Temp >100.5 08/25/19 00:15 09/24/19 00:14 08/27/19 10:26 Albuterol Sulfate (Proventil MDI) 2 puff Q4H PRN INH Shortness of Breath 08/25/19 00:15 11/23/19 00:14 Enoxaparin Sodium (Lovenox) 40 mg DAILY SUBQ 08/26/19 11:00 11/24/19 10:59 08/30/19 08:52 Fluoxetine HCl (PROzac) 20 mg DAILY ORAL 08/26/19 09:00 09/25/19 08:59 08/30/19 08:54 Metoprolol Tartrate (Lopressor) 25 mg Q12HR ORAL 08/27/19 21:00 11/25/19 20:59 08/30/19 21:47 Olanzapine (ZyPREXA) 20 mg BEDTIME ORAL 08/25/19 21:00 10/09/19 20:59 08/30/19 21:47 Tamsulosin HCl (Flomax) 0.4 mg QHS ORAL 08/25/19 21:00 09/24/19 20:59 08/30/19 21:47 Karthikeyan Morris MD Aug 31, 2019 02:11
[2019-08-31 04:00] VITALS: BP 136/68
[2019-08-31 06:03] LABS: EOSINOPHILS % (AUTO) 4.7 % (0.0-3.0); HEMATOCRIT 40.6 % (42.0-52.0); HEMOGLOBIN 13.9 G/DL (14.2-18.0); LYMPHOCYTES % (AUTO) 43.3 % (20.0-45.0); MEAN CORPUSCULAR VOLUME 90 FL (80-99); MONOCYTES % (AUTO) 9.4 % (1.0-10.0); NEUTROPHILS % (AUTO) 41.6 % (45.0-75.0); PLATELET COUNT 170 K/UL (150-450); RED CELL DISTRIBUTION WIDTH 11.3 % (11.6-14.8); WHITE BLOOD COUNT 6.2 K/UL (4.8-10.8)
--- NOTE | 2019-08-31 07:30 | NUR ---
NURSE NOTES: Report received from Samina RN. Patient is observed in bed, awake, alert, and oriented x4. Respiratory even and unlabored. IV site is asymptomatic, patent, and intact. Bed is in lowest position with side rails up x2 and brakes are engaged. Bed alarm is on. Encouraged pt to use call light when in need of assistance, pt verbalized understanding. Will continue to monitor.
--- NOTE | 2019-08-31 07:31 | NUR ---
HAND-OFF: Report given to KILLIAN Elliott. Plan of care endorsed.
[2019-08-31 08:00] VITALS: BP 160/90
[2019-08-31] MEDS: Enoxaparin 40mg Inj SUBQ SCH (09:00)
[2019-08-31 12:00] VITALS: BP 113/63
--- NOTE | 2019-08-31 12:00 | NUR ---
NURSE NOTES: Patient is observed in bed, eating lunch. No c/o pain. Will continue to monitor.
--- NOTE | 2019-08-31 14:54 | NUR ---
NURSE NOTES: Dr. Guerrero at nurse's station. Notified Dr. Guerrero regarding one episode of afib alsting 10 secs, no new orders noted.
--- NOTE | 2019-08-31 14:54 | Cardiac Electrophysiology PN ---
Assessment/Plan Assessment/Plan 1. Sinus tachycardia due to fever and sepsis. Heart rate is better on antibiotic per ID. 2. Short run of atrial fib with RVR on Lopressor 25 bid 3. NSVT 9 beats. Echo still pending Covid negativity 4. Hypertension, on Lopressor 5. Benign prostatic hypertrophy. 6. Obesity. 7. COVID-19 test result is positive on 08/23 and Negative on 08/27. 3rd one pending from 08/30/19 BETY RN Subjective Subjective In SR in Covid isolation.First Covid was positive on 08/23. Second was negative on 08/27. Awaiting 3rd Covid that was done 08/30/19. Had atrial fib lasting less than 10 seconds with HR 140s Objective Last 24 Hour Vital Signs Date Time Temp Pulse Resp B/P (MAP) Pulse Ox O2 Delivery O2 Flow Rate FiO2 08/31/19 12:00 60 08/31/19 12:00 98.1 69 20 113/63 (80) 96 08/31/19 09:00 Room Air 08/31/19 08:58 70 160/90 08/31/19 08:02 64 08/31/19 08:00 98.1 70 17 160/90 (113) 96 08/31/19 04:00 98.2 74 17 136/68 (90) 95 08/31/19 04:00 52 08/31/19 00:00 56 08/31/19 00:00 98.2 73 19 141/69 (93) 94 08/30/19 21:47 71 139/67 08/30/19 21:00 Room Air 08/30/19 20:00 58 08/30/19 20:00 98.1 71 19 139/67 (91) 95 08/30/19 16:15 56 08/30/19 16:00 97.7 69 20 141/60 (87) 96 Intake and Output 08/30/19 08/31/19 19:00 07:00 Intake Total 600 ml 230 ml Balance 600 ml 230 ml Intake Oral 600 ml 230 ml # Voids 4 3 Laboratory Tests Test 08/31/19 05:00 White Blood Count 6.2 K/UL (4.8-10.8) Red Blood Count 4.50 M/UL (4.70-6.10) L Hemoglobin 13.9 G/DL (14.2-18.0) L Hematocrit 40.6 % (42.0-52.0) L Mean Corpuscular Volume 90 FL (80-99) Mean Corpuscular Hemoglobin 31.0 PG (27.0-31.0) Mean Corpuscular Hemoglobin Concent 34.3 G/DL (32.0-36.0) Red Cell Distribution Width 11.3 % (11.6-14.8) L Platelet Count 170 K/UL (150-450) Mean Platelet Volume 7.6 FL (6.5-10.1) Neutrophils (%) (Auto) 41.6 % (45.0-75.0) L Lymphocytes (%) (Auto) 43.3 % (20.0-45.0) Monocytes (%) (Auto) 9.4 % (1.0-10.0) Eosinophils (%) (Auto) 4.7 % (0.0-3.0) H Basophils (%) (Auto) 1.0 % (0.0-2.0) Microbiology Date/Time Source Procedure Growth Status 08/28/19 16:30 Nasopharynx Coronavirus COVID-19 PCR (JANA) - Final Complete Objective HEAD AND NECK: No JVD. LUNGS: Coarse rhonchi. CARDIOVASCULAR: Regular S1 and S2 with no gallop. ABDOMEN: Soft. EXTREMITIES: 1+ pitting edema. Robert Guerrero MD Aug 31, 2019 14:54
[2019-08-31 16:00] VITALS: BP 132/81
--- NOTE | 2019-08-31 19:15 | NUR ---
NURSE NOTES: Received pt and report from KILLIAN Elliott. Observed pt resting in bed with both eyes open. telemetry monitor is in placed; pt is NSR. Pt refused IV access; MD aware. Bed is in the lowest position and locked. Call light and bedside table is within reach. No signs/symptoms of acute distress noted at this time. Will continue plan of care.
--- NOTE | 2019-08-31 19:21 | NUR ---
HAND-OFF: Report given to Samina RN. Patient is in stable condition. Endorsed plan of care.
--- NOTE | 2019-08-31 19:58 | General Progress Note ---
Assessment/Plan Problem List: (1) Sepsis ICD Codes: A41.9 - Sepsis, unspecified organism SNOMED: 14031615 Qualifiers: Qualified Codes: A41.9 - Sepsis, unspecified organism (2) UTI (urinary tract infection) ICD Codes: N39.0 - Urinary tract infection, site not specified SNOMED: 70833416 Qualifiers: Qualified Codes: N30.00 - Acute cystitis without hematuria (3) Suspected 2019 novel coronavirus infection ICD Codes: R68.89 - Other general symptoms and signs SNOMED: 111584610 Status: progressing Assessment/Plan: resp insuff covid positive pna sepsis lyte abnormality weak psychosis Subjective ROS Limited/Unobtainable: Yes Allergies: Coded Allergies: No Known Allergies (Verified , 06/19/07) Objective Last 24 Hour Vital Signs Date Time Temp Pulse Resp B/P (MAP) Pulse Ox O2 Delivery O2 Flow Rate FiO2 08/31/19 16:00 98.1 73 20 132/81 (98) 96 08/31/19 15:39 62 08/31/19 12:00 60 08/31/19 12:00 98.1 69 20 113/63 (80) 96 08/31/19 09:00 Room Air 08/31/19 08:58 70 160/90 08/31/19 08:02 64 08/31/19 08:00 98.1 70 17 160/90 (113) 96 08/31/19 04:00 98.2 74 17 136/68 (90) 95 08/31/19 04:00 52 08/31/19 00:00 56 08/31/19 00:00 98.2 73 19 141/69 (93) 94 08/30/19 21:47 71 139/67 08/30/19 21:00 Room Air 08/30/19 20:00 58 08/30/19 20:00 98.1 71 19 139/67 (91) 95 Intake and Output 08/30/19 08/31/19 19:00 07:00 Intake Total 600 ml 230 ml Balance 600 ml 230 ml Intake Oral 600 ml 230 ml # Voids 4 3 Laboratory Tests 08/31/19 05:00: White Blood Count 6.2, Red Blood Count 4.50L, Hemoglobin 13.9L, Hematocrit 40.6L , Mean Corpuscular Volume 90, Mean Corpuscular Hemoglobin 31.0, Mean Corpuscular Hemoglobin Concent 34.3, Red Cell Distribution Width 11.3L, Platelet Count 170, Mean Platelet Volume 7.6, Neutrophils (%) (Auto) 41.6L, Lymphocytes (%) (Auto) 43.3, Monocytes (%) (Auto) 9.4, Eosinophils (%) (Auto) 4.7H, Basophils (%) (Auto) 1.0 Height (Feet): 5 Height (Inches): 10.00 Weight (Pounds): 219 Cardiovascular: normal rate Respiratory/Chest: lungs clear Louisa Aburto MD Aug 31, 2019 19:58
[2019-08-31 20:00] VITALS: BP 134/66
--- NOTE | 2019-08-31 21:00 | Progress Note ---
DATE: 08/30/2019 SUBJECTIVE: The patient is just staying depressed, withdrawn, presents with anhedonia, worthlessness, hopelessness. MENTAL STATUS EXAMINATION: The patient is alert and oriented x3. Mood is depressed. Affect is constricted. Congruent mood. Thought process is concrete. Thought content, no suicidal or homicidal ideation. ASSESSMENT: Schizoaffective disorder, depressed type. PLAN: Continue current psychotropic medications. Aryan Hernández M.D. DR: ANTONIO JOB#: [id number] CC:
[2019-08-31] MEDS: Tamsulosin 0.4mg cap ORAL SCH (21:05)
[2019-08-31] MEDS: OLANZapine 10mg tab ORAL SCH (21:06)
--- NOTE | 2019-08-31 22:14 | Psych Consult Progress Note ---
Psychiatry Progress Note Psychiatry Progress Note Medications Current Medications Medications (Trade) Dose Ordered Sig/Abilio Route PRN Reason Start Time Stop Time Status Last Admin Dose Admin Acetaminophen (Tylenol) 650 mg EVERY 6 HOURS PRN ORAL Temp >100.5 08/25/19 00:15 09/24/19 00:14 08/27/19 10:26 Albuterol Sulfate (Proventil MDI) 2 puff Q4H PRN INH Shortness of Breath 08/25/19 00:15 11/23/19 00:14 Enoxaparin Sodium (Lovenox) 40 mg DAILY SUBQ 08/26/19 11:00 11/24/19 10:59 08/31/19 09:00 Fluoxetine HCl (PROzac) 20 mg DAILY ORAL 08/26/19 09:00 09/25/19 08:59 08/31/19 08:59 Metoprolol Tartrate (Lopressor) 25 mg Q12HR ORAL 08/27/19 21:00 11/25/19 20:59 08/31/19 21:13 Olanzapine (ZyPREXA) 20 mg BEDTIME ORAL 08/25/19 21:00 10/09/19 20:59 08/31/19 21:06 Tamsulosin HCl (Flomax) 0.4 mg QHS ORAL 08/25/19 21:00 09/24/19 20:59 08/31/19 21:05 Allergies: Coded Allergies: No Known Allergies (Verified , 06/19/07) Objective Data Height (Feet): 5 Height (Inches): 10.00 Weight (Pounds): 219 Assessment/Plan Status: progressing Aryan Hernández MD Aug 31, 2019 22:14
--- NOTE | 2019-08-31 23:43 | Pulmonology Progress Note ---
Assessment/Plan Assessment/Plan Pulmonary Progress Note HPI Patient is an 79-year-old man with a past medical history of hypertension and psychiatric illness. [facility]. Patient has noted cough and congestion. Denies any other complaints. He denies any chest pain. No nausea vomiting or diarrhea. Patient is very hard of hearing so history is limited. Stable pulmonary Status, on RA Allergies: No Known Allergies Past Medical History: Hypertension, COPD, DM, BPH, Umbilical Hernia and Psychiatric illness Pertinent Family History: none Social History: Denies: smoking All Other Systems: negative except mentioned in HPI Physical Exam Vital Signs Noted General Appearance: well appearing, no apparent distress, alert Head: normocephalic, atraumatic Eyes: bilateral eye PERRL, bilateral eye EOMI ENT: hearing grossly normal, normal pharynx Neck: full range of motion, supple, no meningismus Respiratory: chest non-tender, lungs clear, normal breath sounds Cardiovascular: regular rate, rhythm, no murmur Gastrointestinal: normal bowel sounds, non tender, no mass, no organomegaly, no bruit, non-distended Musculoskeletal: back normal, normal range of motion Neurologic: alert, grossly normal Impression: UTI BPH Sepsis Suspected 2019 novel coronavirus infection COPD HTN DM Psychiatric Illness Plan: IV Antibiotics started. PTAmedications O2 PRN Albuterol PRN PPX Await cultures/viral studies EKG: Rate: normal Rhythm: NSR ST Segments: no acute changes Chest X-Ray: no effusion, no pneumothorax, no acute cardiopulmonary disease, other - Atelectasis at the bases Subjective ROS Limited/Unobtainable: No Constitutional: Denies: fever Psychiatric: Reports: other - refuses IV medications Allergies: Coded Allergies: No Known Allergies (Verified , 06/19/07) Objective Last 24 Hour Vital Signs Date Time Temp Pulse Resp B/P (MAP) Pulse Ox O2 Delivery O2 Flow Rate FiO2 08/31/19 21:13 69 134/66 08/31/19 20:00 97.3 69 17 134/66 (88) 94 08/31/19 16:00 98.1 73 20 132/81 (98) 96 08/31/19 15:39 62 08/31/19 12:00 60 08/31/19 12:00 98.1 69 20 113/63 (80) 96 08/31/19 09:00 Room Air 08/31/19 08:58 70 160/90 08/31/19 08:02 64 08/31/19 08:00 98.1 70 17 160/90 (113) 96 08/31/19 04:00 98.2 74 17 136/68 (90) 95 08/31/19 04:00 52 08/31/19 00:00 56 08/31/19 00:00 98.2 73 19 141/69 (93) 94 Intake and Output 08/30/19 08/31/19 19:00 07:00 Intake Total 600 ml 230 ml Balance 600 ml 230 ml Intake Oral 600 ml 230 ml # Voids 4 3 General Appearance: no acute distress HEENT: mucous membranes moist Abdomen: soft, non tender Extremities: no edema Neurologic/Psychiatric: other - sleeping Laboratory Tests 08/31/19 05:00: White Blood Count 6.2, Red Blood Count 4.50L, Hemoglobin 13.9L, Hematocrit 40.6L , Mean Corpuscular Volume 90, Mean Corpuscular Hemoglobin 31.0, Mean Corpuscular Hemoglobin Concent 34.3, Red Cell Distribution Width 11.3L, Platelet Count 170, Mean Platelet Volume 7.6, Neutrophils (%) (Auto) 41.6L, Lymphocytes (%) (Auto) 43.3, Monocytes (%) (Auto) 9.4, Eosinophils (%) (Auto) 4.7H, Basophils (%) (Auto) 1.0 Current Medications Medications (Trade) Dose Ordered Sig/Abilio Route PRN Reason Start Time Stop Time Status Last Admin Dose Admin Acetaminophen (Tylenol) 650 mg EVERY 6 HOURS PRN ORAL Temp >100.5 08/25/19 00:15 09/24/19 00:14 08/27/19 10:26 Albuterol Sulfate (Proventil MDI) 2 puff Q4H PRN INH Shortness of Breath 08/25/19 00:15 11/23/19 00:14 Enoxaparin Sodium (Lovenox) 40 mg DAILY SUBQ 08/26/19 11:00 11/24/19 10:59 08/31/19 09:00 Fluoxetine HCl (PROzac) 20 mg DAILY ORAL 08/26/19 09:00 09/25/19 08:59 08/31/19 08:59 Metoprolol Tartrate (Lopressor) 25 mg Q12HR ORAL 08/27/19 21:00 11/25/19 20:59 08/31/19 21:13 Olanzapine (ZyPREXA) 20 mg BEDTIME ORAL 08/25/19 21:00 10/09/19 20:59 08/31/19 21:06 Tamsulosin HCl (Flomax) 0.4 mg QHS ORAL 08/25/19 21:00 09/24/19 20:59 08/31/19 21:05 Karthikeyan Morris MD Aug 31, 2019 23:43
[2019-09-01] VITALS: BP 116/56
[2019-09-01 04:00] VITALS: BP 133/79
--- NOTE | 2019-09-01 06:32 | Hematology/Onc Progress Note ---
Assessment/Plan Assessment/Plan Assessment and Recs: # Pancytopenia - potential causes multifactorial, evaluate liver and viral etiologies to begin, also could be related to underlying medications patient has received. Likely COVID19++ related --> Hep panel and HIV ordered --> NEG --> US abd to evaluate for cirrhosis and hsm ordered as needed --> Peripheral smear ordered to evaluate for blasts /schistocytes --> is wnl --> abx and other meds have been reviewed --> ok for ppx if plt >50k w/ either heparin or lovenox --> Transfuse if Plt < 20k and fever, or if Plt < 10k without fever --> wbc trend 5-->4 -> plt trend 134-->120k-->133-->150-->170 --> abx: amoxicillin --> OFF # Anemia due to chronic disease --> trend as needed hgb 13 --> no evidence of hemolysis is noted # Sepsis r/o infection --> abx as needed # UTI (urinary tract infection) --> id eval --> abx given # Suspected 2019 novel coronavirus infection --> abx, per id, o2,duonebs # Psych d/o --> per Dr. Hernández # Dvt ppx lovenox sq The timing of this note does not necessarily reflect the time of the patient was seen. Greatly appreciate consultation. Subjective Constitutional: Denies: no symptoms, chills, fever, malaise, weakness, other HEENT: Denies: no symptoms, eye pain, blurred vision, tearing, double vision, ear pain, ear discharge, nose pain, nose congestion, throat pain, throat swelling, mouth pain, mouth swelling, other Respiratory: Denies: no symptoms, cough, shortness of breath, SOB with excertion, SOB at rest, sputum, wheezing, other Gastrointestinal/Abdominal: Denies: no symptoms, abdomen distended, abdominal pain, black stools, tarry stools, blood in stool, constipated, diarrhea, difficulty swallowing, nausea, poor appetite, poor fluid intake, rectal bleeding , vomiting, other Genitourinary: Denies: no symptoms, burning, discharge, frequency, flank pain, hematuria, incontinence, pain, urgency, other Neurologic/Psychiatric: Denies: no symptoms, anxiety, depressed, emotional problems, headache, numbness, paresthesia, pre-existing deficit, seizure, tingling, tremors, weakness, other Endocrine: Denies: no symptoms, excessive sweating, flushing, intolerance to cold, intolerance to heat, increased hunger, increased thirst, increased urine, unexplained weight gain, unexplained weight loss, other Hematologic/Lymphatic: Denies: no symptoms, anemia, easy bleeding, easy bruising, adenopathy, other Allergies: Coded Allergies: No Known Allergies (Verified , 06/19/07) Subjective 08/25 labs noted, cbc is pending from am, lower fever 08/26 seen by crds and psych, on zyprexa, less agitated overnight 08/27 no bleeding, labs reviewed, no night sweats, on lopressor for high bp 08/28 on amox, awaiting le duplex and us abd, no acute distress 08/29 no events, no bleeding, no night sweats, labs noted, cbc ordered 08/31 labs noted, no bleeding, dw rn, with afib tachy run overnight Objective Objective Current Medications Medications (Trade) Dose Ordered Sig/Abilio Route PRN Reason Start Time Stop Time Status Last Admin Dose Admin Acetaminophen (Tylenol) 650 mg EVERY 6 HOURS PRN ORAL Temp >100.5 08/25/19 00:15 09/24/19 00:14 08/27/19 10:26 Albuterol Sulfate (Proventil MDI) 2 puff Q4H PRN INH Shortness of Breath 08/25/19 00:15 11/23/19 00:14 Enoxaparin Sodium (Lovenox) 40 mg DAILY SUBQ 08/26/19 11:00 11/24/19 10:59 08/31/19 09:00 Fluoxetine HCl (PROzac) 20 mg DAILY ORAL 08/26/19 09:00 09/25/19 08:59 08/31/19 08:59 Metoprolol Tartrate (Lopressor) 25 mg Q12HR ORAL 08/27/19 21:00 11/25/19 20:59 08/31/19 21:13 Olanzapine (ZyPREXA) 20 mg BEDTIME ORAL 08/25/19 21:00 10/09/19 20:59 08/31/19 21:06 Tamsulosin HCl (Flomax) 0.4 mg QHS ORAL 08/25/19 21:00 09/24/19 20:59 08/31/19 21:05 Last 24 Hour Vital Signs Date Time Temp Pulse Resp B/P (MAP) Pulse Ox O2 Delivery O2 Flow Rate FiO2 09/01/19 04:00 97.8 60 19 133/79 (97) 93 09/01/19 03:36 49 09/01/19 00:00 97.2 56 17 116/56 (76) 94 08/31/19 23:29 53 08/31/19 21:13 69 134/66 08/31/19 21:00 Room Air 08/31/19 20:00 97.3 69 17 134/66 (88) 94 08/31/19 19:32 60 08/31/19 16:00 98.1 73 20 132/81 (98) 96 08/31/19 15:39 62 08/31/19 12:00 60 08/31/19 12:00 98.1 69 20 113/63 (80) 96 08/31/19 09:00 Room Air 08/31/19 08:58 70 160/90 08/31/19 08:02 64 08/31/19 08:00 98.1 70 17 160/90 (113) 96 08/31/19 04:00 98.2 74 17 136/68 (90) 95 08/31/19 04:00 52 08/31/19 00:00 56 08/31/19 00:00 98.2 73 19 141/69 (93) 94 08/30/19 21:47 71 139/67 08/30/19 21:00 Room Air 08/30/19 20:00 58 08/30/19 20:00 98.1 71 19 139/67 (91) 95 08/30/19 16:15 56 08/30/19 16:00 97.7 69 20 141/60 (87) 96 08/30/19 12:00 98.7 83 20 155/78 (103) 98 08/30/19 11:44 58 08/30/19 09:00 Room Air 08/30/19 08:54 68 162/96 08/30/19 08:00 97.6 68 19 162/96 (118) 96 08/30/19 07:46 66 Intake and Output 08/31/19 09/01/19 19:00 07:00 # Voids 3 Labs Test 4/25/20 05:00 White Blood Count 6.2 K/UL (4.8-10.8) Red Blood Count 4.50 M/UL (4.70-6.10) Hemoglobin 13.9 G/DL (14.2-18.0) Hematocrit 40.6 % (42.0-52.0) Mean Corpuscular Volume 90 FL (80-99) Mean Corpuscular Hemoglobin 31.0 PG (27.0-31.0) Mean Corpuscular Hemoglobin Concent 34.3 G/DL (32.0-36.0) Red Cell Distribution Width 11.3 % (11.6-14.8) Platelet Count 170 K/UL (150-450) Mean Platelet Volume 7.6 FL (6.5-10.1) Neutrophils (%) (Auto) 41.6 % (45.0-75.0) Lymphocytes (%) (Auto) 43.3 % (20.0-45.0) Monocytes (%) (Auto) 9.4 % (1.0-10.0) Eosinophils (%) (Auto) 4.7 % (0.0-3.0) Basophils (%) (Auto) 1.0 % (0.0-2.0) Height (Feet): 5 Height (Inches): 10.00 Weight (Pounds): 219 Objective Vitals: reviewed General: NAD HEENT: nc, at Neck: supple Chest: clear breath sounds bilaterally Cardiovascular: RRR, no s3, s4 Abdomen: soft, nontender, nd Extremities: no cce, normal range of motion Neuro: alert and oriented Anival Peñaloza MD Sep 01, 2019 06:32
--- NOTE | 2019-09-01 07:51 | NUR ---
HAND-OFF: Report given to KILLIAN Richards. Plan of care endorsed.
[2019-09-01 08:00] VITALS: BP 127/67
[2019-09-01 08:05] LABS: BASOPHILS % (AUTO) 1.3 % (0.0-2.0); EOSINOPHILS % (AUTO) 4.8 % (0.0-3.0); HEMATOCRIT 38.5 % (42.0-52.0); HEMOGLOBIN 13.6 G/DL (14.2-18.0); LYMPHOCYTES % (AUTO) 40.1 % (20.0-45.0); MEAN CORPUSCULAR VOLUME 90 FL (80-99); MONOCYTES % (AUTO) 12.5 % (1.0-10.0); NEUTROPHILS % (AUTO) 41.3 % (45.0-75.0); PLATELET COUNT 246 K/UL (150-450); RED CELL DISTRIBUTION WIDTH 11.2 % (11.6-14.8); WHITE BLOOD COUNT 6.4 K/UL (4.8-10.8)
--- NOTE | 2019-09-01 08:16 | NUR ---
NURSE NOTES: Received report from Samina Miranda RN. Patient laying on right side, awake and alert, rubbing hands together, on room air, bed in lowest position, call light within reach, in no apparent distress.
[2019-09-01] MEDS: Enoxaparin 40mg Inj SUBQ SCH (10:49)
[2019-09-01 12:00] VITALS: BP 151/72
--- NOTE | 2019-09-01 12:20 | Infectious Diseases Prog Note ---
Assessment/Plan Assessment/Plan IMPRESSION: 1. COVID-19 disease Positive=08/23 Negative=08/27 2. Strep group B UTI. 3. BPH. 4. Hypertension. 5. Obesity. 6. Schizoaffective disorder, depressive type RECOMMENDATION: Will f/u COVID19 test Subjective ROS Limited/Unobtainable: Yes Constitutional: Denies: fever Allergies: Coded Allergies: No Known Allergies (Verified , 06/19/07) Objective Vital Signs Last 24 Hour Vital Signs Date Time Temp Pulse Resp B/P (MAP) Pulse Ox O2 Delivery O2 Flow Rate FiO2 09/01/19 10:49 56 127/67 09/01/19 08:00 97.9 65 20 127/67 (87) 94 09/01/19 08:00 56 09/01/19 04:00 97.8 60 19 133/79 (97) 93 09/01/19 03:36 49 09/01/19 00:00 97.2 56 17 116/56 (76) 94 08/31/19 23:29 53 08/31/19 21:13 69 134/66 08/31/19 21:00 Room Air 08/31/19 20:00 97.3 69 17 134/66 (88) 94 08/31/19 19:32 60 08/31/19 16:00 98.1 73 20 132/81 (98) 96 08/31/19 15:39 62 Height (Feet): 5 Height (Inches): 10.00 Weight (Pounds): 219 General Appearance: no acute distress HEENT: mucous membranes moist Respiratory/Chest: lungs clear Cardiovascular: bradycardia Abdomen: soft, non tender Extremities: no edema Neurologic/Psychiatric: other - sleeping Laboratory Tests Test 09/01/19 06:10 White Blood Count 6.4 K/UL (4.8-10.8) Red Blood Count 4.30 M/UL (4.70-6.10) L Hemoglobin 13.6 G/DL (14.2-18.0) L Hematocrit 38.5 % (42.0-52.0) L Mean Corpuscular Volume 90 FL (80-99) Mean Corpuscular Hemoglobin 31.6 PG (27.0-31.0) H Mean Corpuscular Hemoglobin Concent 35.2 G/DL (32.0-36.0) Red Cell Distribution Width 11.2 % (11.6-14.8) L Platelet Count 246 K/UL (150-450) Mean Platelet Volume 7.5 FL (6.5-10.1) Neutrophils (%) (Auto) 41.3 % (45.0-75.0) L Lymphocytes (%) (Auto) 40.1 % (20.0-45.0) Monocytes (%) (Auto) 12.5 % (1.0-10.0) H Eosinophils (%) (Auto) 4.8 % (0.0-3.0) H Basophils (%) (Auto) 1.3 % (0.0-2.0) Current Medications Medications (Trade) Dose Ordered Sig/Abilio Route PRN Reason Start Time Stop Time Status Last Admin Dose Admin Acetaminophen (Tylenol) 650 mg EVERY 6 HOURS PRN ORAL Temp >100.5 08/25/19 00:15 09/24/19 00:14 08/27/19 10:26 Albuterol Sulfate (Proventil MDI) 2 puff Q4H PRN INH Shortness of Breath 08/25/19 00:15 11/23/19 00:14 Enoxaparin Sodium (Lovenox) 40 mg DAILY SUBQ 08/26/19 11:00 11/24/19 10:59 09/01/19 10:49 Fluoxetine HCl (PROzac) 20 mg DAILY ORAL 08/26/19 09:00 09/25/19 08:59 09/01/19 10:49 Metoprolol Tartrate (Lopressor) 25 mg Q12HR ORAL 08/27/19 21:00 11/25/19 20:59 09/01/19 10:49 Olanzapine (ZyPREXA) 20 mg BEDTIME ORAL 08/25/19 21:00 10/09/19 20:59 08/31/19 21:06 Tamsulosin HCl (Flomax) 0.4 mg QHS ORAL 08/25/19 21:00 09/24/19 20:59 08/31/19 21:05 Toni Colon MD Sep 01, 2019 12:20
[2019-09-01 16:00] VITALS: BP 142/84
--- NOTE | 2019-09-01 19:50 | NUR ---
HAND-OFF: Report given to Bonny Henderson RN. Patient is laying on left side, awake and alert, watching television, urinal at bedside, on room air, bed in lowest position, call light within reach, no IV access, MD aware, in no apparent distress.
--- NOTE | 2019-09-01 19:50 | NUR ---
NURSE NOTES: Received pt from KILLIAN Mittal. Pt awake, alert, and talkative. Bed in lowest position. Call light within reach. Will continue to monitor.
[2019-09-01 20:00] VITALS: BP 135/77
[2019-09-01] MEDS: Tamsulosin 0.4mg cap ORAL SCH (20:25)
[2019-09-01] MEDS: OLANZapine 10mg tab ORAL SCH (20:25)
--- NOTE | 2019-09-01 22:13 | General Progress Note ---
Assessment/Plan Problem List: (1) Sepsis ICD Codes: A41.9 - Sepsis, unspecified organism SNOMED: 04627809 Qualifiers: Qualified Codes: A41.9 - Sepsis, unspecified organism (2) UTI (urinary tract infection) ICD Codes: N39.0 - Urinary tract infection, site not specified SNOMED: 19697533 Qualifiers: Qualified Codes: N30.00 - Acute cystitis without hematuria (3) Suspected 2019 novel coronavirus infection ICD Codes: R68.89 - Other general symptoms and signs SNOMED: 877790457 Status: progressing Assessment/Plan: not hypoxic labs normal psych pt abx per id covid positive pna sepsis lyte abnormality weak psychosis Subjective ROS Limited/Unobtainable: Yes Allergies: Coded Allergies: No Known Allergies (Verified , 06/19/07) Objective Last 24 Hour Vital Signs Date Time Temp Pulse Resp B/P (MAP) Pulse Ox O2 Delivery O2 Flow Rate FiO2 09/01/19 20:00 97.5 59 18 135/77 (96) 94 09/01/19 16:00 98.1 64 20 142/84 (103) 94 09/01/19 16:00 60 09/01/19 12:00 97.5 74 20 151/72 (98) 93 09/01/19 12:00 58 09/01/19 10:49 56 127/67 09/01/19 09:00 Room Air 09/01/19 08:00 97.9 65 20 127/67 (87) 94 09/01/19 08:00 56 09/01/19 04:00 97.8 60 19 133/79 (97) 93 09/01/19 03:36 49 09/01/19 00:00 97.2 56 17 116/56 (76) 94 08/31/19 23:29 53 Intake and Output 08/31/19 09/01/19 19:00 07:00 Intake Total 320 ml Balance 320 ml Intake Oral 320 ml # Voids 3 2 Laboratory Tests 09/01/19 06:10: White Blood Count 6.4, Red Blood Count 4.30L, Hemoglobin 13.6L, Hematocrit 38.5L , Mean Corpuscular Volume 90, Mean Corpuscular Hemoglobin 31.6H, Mean Corpuscular Hemoglobin Concent 35.2, Red Cell Distribution Width 11.2L, Platelet Count 246, Mean Platelet Volume 7.5, Neutrophils (%) (Auto) 41.3L, Lymphocytes (%) (Auto) 40.1, Monocytes (%) (Auto) 12.5H, Eosinophils (%) (Auto) 4.8H, Basophils (%) (Auto) 1.3 Height (Feet): 5 Height (Inches): 10.00 Weight (Pounds): 219 Louisa Aburto MD Sep 01, 2019 22:13
--- NOTE | 2019-09-01 23:59 | Pulmonology Progress Note ---
Assessment/Plan Assessment/Plan Pulmonary Progress Note HPI Patient is an 79-year-old man with a past medical history of hypertension and psychiatric illness. His [place] [facility] has multiple patients positive for COVID19. Patient has noted cough and congestion. Denies any other complaints. He denies any chest pain. No nausea vomiting or diarrhea. Patient is very hard of hearing so history is limited. Stable pulmonary Status, on RA Allergies: No Known Allergies Past Medical History: Hypertension, COPD, DM, BPH, Umbilical Hernia and Psychiatric illness Pertinent Family History: none Social History: Denies: smoking All Other Systems: negative except mentioned in HPI Physical Exam Vital Signs Noted General Appearance: well appearing, no apparent distress, alert Head: normocephalic, atraumatic Eyes: bilateral eye PERRL, bilateral eye EOMI ENT: hearing grossly normal, normal pharynx Neck: full range of motion, supple, no meningismus Respiratory: chest non-tender, lungs clear, normal breath sounds Cardiovascular: regular rate, rhythm, no murmur Gastrointestinal: normal bowel sounds, non tender, no mass, no organomegaly, no bruit, non-distended Musculoskeletal: back normal, normal range of motion Neurologic: alert, grossly normal Impression: UTI BPH Sepsis Suspected 2019 novel coronavirus infection COPD HTN DM Psychiatric Illness Plan: IV Antibiotics started. PTAmedications O2 PRN Albuterol PRN PPX Await cultures/viral studies EKG: Rate: normal Rhythm: NSR ST Segments: no acute changes Chest X-Ray: no effusion, no pneumothorax, no acute cardiopulmonary disease, other - Atelectasis at the bases Subjective ROS Limited/Unobtainable: No Constitutional: Denies: fever Psychiatric: Reports: other - refuses IV medications Allergies: Coded Allergies: No Known Allergies (Verified , 06/19/07) Objective Last 24 Hour Vital Signs Date Time Temp Pulse Resp B/P (MAP) Pulse Ox O2 Delivery O2 Flow Rate FiO2 09/01/19 20:00 97.5 59 18 135/77 (96) 94 09/01/19 16:00 98.1 64 20 142/84 (103) 94 09/01/19 16:00 60 09/01/19 12:00 97.5 74 20 151/72 (98) 93 09/01/19 12:00 58 09/01/19 10:49 56 127/67 09/01/19 09:00 Room Air 09/01/19 08:00 97.9 65 20 127/67 (87) 94 09/01/19 08:00 56 09/01/19 04:00 97.8 60 19 133/79 (97) 93 09/01/19 03:36 49 09/01/19 00:00 97.2 56 17 116/56 (76) 94 Intake and Output 08/31/19 09/01/19 19:00 07:00 Intake Total 320 ml Balance 320 ml Intake Oral 320 ml # Voids 3 2 General Appearance: no acute distress HEENT: mucous membranes moist Abdomen: soft, non tender Extremities: no edema Neurologic/Psychiatric: other - sleeping Laboratory Tests 09/01/19 06:10: White Blood Count 6.4, Red Blood Count 4.30L, Hemoglobin 13.6L, Hematocrit 38.5L , Mean Corpuscular Volume 90, Mean Corpuscular Hemoglobin 31.6H, Mean Corpuscular Hemoglobin Concent 35.2, Red Cell Distribution Width 11.2L, Platelet Count 246, Mean Platelet Volume 7.5, Neutrophils (%) (Auto) 41.3L, Lymphocytes (%) (Auto) 40.1, Monocytes (%) (Auto) 12.5H, Eosinophils (%) (Auto) 4.8H, Basophils (%) (Auto) 1.3 Current Medications Medications (Trade) Dose Ordered Sig/Abilio Route PRN Reason Start Time Stop Time Status Last Admin Dose Admin Acetaminophen (Tylenol) 650 mg EVERY 6 HOURS PRN ORAL Temp >100.5 08/25/19 00:15 09/24/19 00:14 08/27/19 10:26 Albuterol Sulfate (Proventil MDI) 2 puff Q4H PRN INH Shortness of Breath 08/25/19 00:15 11/23/19 00:14 Enoxaparin Sodium (Lovenox) 40 mg DAILY SUBQ 08/26/19 11:00 11/24/19 10:59 09/01/19 10:49 Fluoxetine HCl (PROzac) 20 mg DAILY ORAL 08/26/19 09:00 09/25/19 08:59 09/01/19 10:49 Metoprolol Tartrate (Lopressor) 25 mg Q12HR ORAL 08/27/19 21:00 11/25/19 20:59 09/01/19 10:49 Olanzapine (ZyPREXA) 20 mg BEDTIME ORAL 08/25/19 21:00 10/09/19 20:59 09/01/19 20:25 Tamsulosin HCl (Flomax) 0.4 mg QHS ORAL 08/25/19 21:00 09/24/19 20:59 09/01/19 20:25 Karthikeyan Morris MD Sep 01, 2019 23:59
[2019-09-02] VITALS: BP 124/66
[2019-09-02 04:00] VITALS: BP 119/73
--- NOTE | 2019-09-02 06:25 | Hematology/Onc Progress Note ---
Assessment/Plan Assessment/Plan Assessment and Recs: # Pancytopenia - potential causes multifactorial, evaluate liver and viral etiologies to begin, also could be related to underlying medications patient has received. Likely COVID19++ related --> Hep panel and HIV ordered --> NEG --> US abd to evaluate for cirrhosis and hsm ordered as needed --> Peripheral smear ordered to evaluate for blasts /schistocytes --> is wnl --> abx and other meds have been reviewed --> ok for ppx if plt >50k w/ either heparin or lovenox --> Transfuse if Plt < 20k and fever, or if Plt < 10k without fever --> wbc trend 5-->4 -> plt trend 134-->120k-->133-->150-->170 --> abx: amoxicillin --> OFF # Anemia due to chronic disease --> trend as needed hgb 13 --> no evidence of hemolysis is noted # Sepsis r/o infection --> abx as needed # UTI (urinary tract infection) --> id eval --> abx given # Suspected 2019 novel coronavirus infection --> abx, per id, o2,duonebs # Psych d/o --> per Dr. Hernández # Dvt ppx lovenox sq The timing of this note does not necessarily reflect the time of the patient was seen. Greatly appreciate consultation. Subjective Constitutional: Denies: no symptoms, chills, fever, malaise, weakness, other HEENT: Denies: no symptoms, eye pain, blurred vision, tearing, double vision, ear pain, ear discharge, nose pain, nose congestion, throat pain, throat swelling, mouth pain, mouth swelling, other Cardiovascular: Denies: no symptoms, chest pain, edema, irregular heart rate, lightheadedness, palpitations, syncope, other Gastrointestinal/Abdominal: Denies: no symptoms, abdomen distended, abdominal pain, black stools, tarry stools, blood in stool, constipated, diarrhea, difficulty swallowing, nausea, poor appetite, poor fluid intake, rectal bleeding , vomiting, other Genitourinary: Denies: no symptoms, burning, discharge, frequency, flank pain, hematuria, incontinence, pain, urgency, other Endocrine: Denies: no symptoms, excessive sweating, flushing, intolerance to cold, intolerance to heat, increased hunger, increased thirst, increased urine, unexplained weight gain, unexplained weight loss, other Hematologic/Lymphatic: Denies: no symptoms, anemia, easy bleeding, easy bruising, adenopathy, other Allergies: Coded Allergies: No Known Allergies (Verified , 06/19/07) Subjective 08/25 labs noted, cbc is pending from am, lower fever 08/26 seen by crds and psych, on zyprexa, less agitated overnight 08/27 no bleeding, labs reviewed, no night sweats, on lopressor for high bp 08/28 on amox, awaiting le duplex and us abd, no acute distress 08/29 no events, no bleeding, no night sweats, labs noted, cbc ordered 08/31 labs noted, no bleeding, dw rn, with afib tachy run overnight 09/01 labs have been reviewed, no bleeding, meds noted, hgb 13.6 Objective Objective Current Medications Medications (Trade) Dose Ordered Sig/Abilio Route PRN Reason Start Time Stop Time Status Last Admin Dose Admin Acetaminophen (Tylenol) 650 mg EVERY 6 HOURS PRN ORAL Temp >100.5 08/25/19 00:15 09/24/19 00:14 08/27/19 10:26 Albuterol Sulfate (Proventil MDI) 2 puff Q4H PRN INH Shortness of Breath 08/25/19 00:15 11/23/19 00:14 Enoxaparin Sodium (Lovenox) 40 mg DAILY SUBQ 08/26/19 11:00 11/24/19 10:59 09/01/19 10:49 Fluoxetine HCl (PROzac) 20 mg DAILY ORAL 08/26/19 09:00 09/25/19 08:59 09/01/19 10:49 Metoprolol Tartrate (Lopressor) 25 mg Q12HR ORAL 08/27/19 21:00 11/25/19 20:59 09/01/19 10:49 Olanzapine (ZyPREXA) 20 mg BEDTIME ORAL 08/25/19 21:00 10/09/19 20:59 09/01/19 20:25 Tamsulosin HCl (Flomax) 0.4 mg QHS ORAL 08/25/19 21:00 09/24/19 20:59 09/01/19 20:25 Last 24 Hour Vital Signs Date Time Temp Pulse Resp B/P (MAP) Pulse Ox O2 Delivery O2 Flow Rate FiO2 09/02/19 04:00 51 09/02/19 04:00 96.7 73 18 119/73 (88) 97 09/02/19 00:00 98.1 67 19 124/66 (85) 96 09/02/19 00:00 53 09/01/19 21:00 Room Air 09/01/19 20:00 97.5 59 18 135/77 (96) 94 09/01/19 16:00 98.1 64 20 142/84 (103) 94 09/01/19 16:00 60 09/01/19 12:00 97.5 74 20 151/72 (98) 93 09/01/19 12:00 58 09/01/19 10:49 56 127/67 09/01/19 09:00 Room Air 09/01/19 08:00 97.9 65 20 127/67 (87) 94 09/01/19 08:00 56 09/01/19 04:00 97.8 60 19 133/79 (97) 93 09/01/19 03:36 49 09/01/19 00:00 97.2 56 17 116/56 (76) 94 08/31/19 23:29 53 08/31/19 21:13 69 134/66 08/31/19 21:00 Room Air 08/31/19 20:00 97.3 69 17 134/66 (88) 94 08/31/19 19:32 60 08/31/19 16:00 98.1 73 20 132/81 (98) 96 08/31/19 15:39 62 08/31/19 12:00 60 08/31/19 12:00 98.1 69 20 113/63 (80) 96 08/31/19 09:00 Room Air 08/31/19 08:58 70 160/90 08/31/19 08:02 64 08/31/19 08:00 98.1 70 17 160/90 (113) 96 Intake and Output 09/01/19 09/02/19 19:00 07:00 Intake Total 500 ml Balance 500 ml Intake Oral 500 ml # Voids 3 2 Labs Test 08/31/19 05:00 09/01/19 06:10 White Blood Count 6.2 K/UL (4.8-10.8) 6.4 K/UL (4.8-10.8) Red Blood Count 4.50 M/UL (4.70-6.10) 4.30 M/UL (4.70-6.10) Hemoglobin 13.9 G/DL (14.2-18.0) 13.6 G/DL (14.2-18.0) Hematocrit 40.6 % (42.0-52.0) 38.5 % (42.0-52.0) Mean Corpuscular Volume 90 FL (80-99) 90 FL (80-99) Mean Corpuscular Hemoglobin 31.0 PG (27.0-31.0) 31.6 PG (27.0-31.0) Mean Corpuscular Hemoglobin Concent 34.3 G/DL (32.0-36.0) 35.2 G/DL (32.0-36.0) Red Cell Distribution Width 11.3 % (11.6-14.8) 11.2 % (11.6-14.8) Platelet Count 170 K/UL (150-450) 246 K/UL (150-450) Mean Platelet Volume 7.6 FL (6.5-10.1) 7.5 FL (6.5-10.1) Neutrophils (%) (Auto) 41.6 % (45.0-75.0) 41.3 % (45.0-75.0) Lymphocytes (%) (Auto) 43.3 % (20.0-45.0) 40.1 % (20.0-45.0) Monocytes (%) (Auto) 9.4 % (1.0-10.0) 12.5 % (1.0-10.0) Eosinophils (%) (Auto) 4.7 % (0.0-3.0) 4.8 % (0.0-3.0) Basophils (%) (Auto) 1.0 % (0.0-2.0) 1.3 % (0.0-2.0) Height (Feet): 5 Height (Inches): 10.00 Weight (Pounds): 219 Objective Vitals: reviewed General: NAD HEENT: nc, at Neck: supple Chest: clear breath sounds bilaterally Cardiovascular: RRR, no s3, s4 Abdomen: soft, nontender, nd Extremities: no cce, normal range of motion Neuro: alert and oriented Anival Peñaloza MD Sep 02, 2019 06:25
[2019-09-02 07:09] LABS: EOSINOPHILS % (AUTO) 4.2 % (0.0-3.0); HEMATOCRIT 40.7 % (42.0-52.0); HEMOGLOBIN 14.1 G/DL (14.2-18.0); LYMPHOCYTES % (AUTO) 39.3 % (20.0-45.0); MEAN CORPUSCULAR VOLUME 89 FL (80-99); MONOCYTES % (AUTO) 10.5 % (1.0-10.0); PLATELET COUNT 298 K/UL (150-450); RED BLOOD COUNT 4.55 M/UL (4.70-6.10); RED CELL DISTRIBUTION WIDTH 11.4 % (11.6-14.8); WHITE BLOOD COUNT 7.6 K/UL (4.8-10.8)
--- NOTE | 2019-09-02 07:14 | NUR ---
HAND-OFF: Report given to Randy RN,. Pt stable.
[2019-09-02 08:00] VITALS: BP 130/71
[2019-09-02] MEDS: Enoxaparin 40mg Inj SUBQ SCH (08:44)
--- NOTE | 2019-09-02 11:54 | Infectious Diseases Prog Note ---
Assessment/Plan Assessment/Plan IMPRESSION: 1. COVID-19 disease Positive=08/23 Negative=08/27 2. Strep group B UTI. 3. BPH. 4. Hypertension. 5. Obesity. 6. Schizoaffective disorder, depressive type RECOMMENDATION: Will f/u COVID19 test Subjective ROS Limited/Unobtainable: No Constitutional: Reports: no symptoms Respiratory: Reports: no symptoms Cardiovascular: Reports: no symptoms Gastrointestinal/Abdominal: Reports: no symptoms Genitourinary: Reports: no symptoms Allergies: Coded Allergies: No Known Allergies (Verified , 06/19/07) Objective Vital Signs Last 24 Hour Vital Signs Date Time Temp Pulse Resp B/P (MAP) Pulse Ox O2 Delivery O2 Flow Rate FiO2 09/02/19 08:43 51 119/73 09/02/19 08:20 Room Air 09/02/19 08:00 64 09/02/19 08:00 96.8 70 19 130/71 (90) 98 09/02/19 04:00 51 09/02/19 04:00 96.7 73 18 119/73 (88) 97 09/02/19 00:00 98.1 67 19 124/66 (85) 96 09/02/19 00:00 53 09/01/19 21:00 Room Air 09/01/19 20:00 97.5 59 18 135/77 (96) 94 09/01/19 16:00 98.1 64 20 142/84 (103) 94 09/01/19 16:00 60 09/01/19 12:00 97.5 74 20 151/72 (98) 93 09/01/19 12:00 58 Height (Feet): 5 Height (Inches): 10.00 Weight (Pounds): 219 General Appearance: no acute distress HEENT: mucous membranes moist Respiratory/Chest: lungs clear Cardiovascular: bradycardia Abdomen: soft, non tender Extremities: no edema Neurologic/Psychiatric: alert, responsive Laboratory Tests Test 09/02/19 05:40 White Blood Count 7.6 K/UL (4.8-10.8) Red Blood Count 4.55 M/UL (4.70-6.10) L Hemoglobin 14.1 G/DL (14.2-18.0) L Hematocrit 40.7 % (42.0-52.0) L Mean Corpuscular Volume 89 FL (80-99) Mean Corpuscular Hemoglobin 30.9 PG (27.0-31.0) Mean Corpuscular Hemoglobin Concent 34.5 G/DL (32.0-36.0) Red Cell Distribution Width 11.4 % (11.6-14.8) L Platelet Count 298 K/UL (150-450) Mean Platelet Volume 7.8 FL (6.5-10.1) Neutrophils (%) (Auto) 45.0 % (45.0-75.0) Lymphocytes (%) (Auto) 39.3 % (20.0-45.0) Monocytes (%) (Auto) 10.5 % (1.0-10.0) H Eosinophils (%) (Auto) 4.2 % (0.0-3.0) H Basophils (%) (Auto) 1.0 % (0.0-2.0) Current Medications Medications (Trade) Dose Ordered Sig/Abilio Route PRN Reason Start Time Stop Time Status Last Admin Dose Admin Acetaminophen (Tylenol) 650 mg EVERY 6 HOURS PRN ORAL Temp >100.5 08/25/19 00:15 09/24/19 00:14 08/27/19 10:26 Albuterol Sulfate (Proventil MDI) 2 puff Q4H PRN INH Shortness of Breath 08/25/19 00:15 11/23/19 00:14 Enoxaparin Sodium (Lovenox) 40 mg DAILY SUBQ 08/26/19 11:00 11/24/19 10:59 09/02/19 08:44 Fluoxetine HCl (PROzac) 20 mg DAILY ORAL 08/26/19 09:00 09/25/19 08:59 09/02/19 08:43 Metoprolol Tartrate (Lopressor) 25 mg Q12HR ORAL 08/27/19 21:00 11/25/19 20:59 09/01/19 10:49 Olanzapine (ZyPREXA) 20 mg BEDTIME ORAL 08/25/19 21:00 10/09/19 20:59 09/01/19 20:25 Tamsulosin HCl (Flomax) 0.4 mg QHS ORAL 08/25/19 21:00 09/24/19 20:59 09/01/19 20:25 Toni Colon MD Sep 02, 2019 11:54
[2019-09-02 12:00] VITALS: BP 128/84
--- NOTE | 2019-09-02 14:57 | NUR ---
CASE MANAGEMENT:REVIEW 09/02/19 SI: COVID 19 DISEASE. STREP UTI 98.2 67 20 128/84 98% ON RA H/H-14.1/40.7 IS: LOPRESSOR PO Q12 LOVENOX SQ QD PROZAC PO QD FLOMAX PO QHS ZYPREXA PO QHS : TELEMETRY STATUS DCP: FROM [facility]
--- NOTE | 2019-09-02 14:57 | Cardiac Electrophysiology PN ---
Assessment/Plan Assessment/Plan 1. Sinus tachycardia due to fever and sepsis. Heart rate is better on antibiotic per ID. 2. Short run of atrial fib with RVR on Lopressor 25 bid 3. NSVT 9 beats. Echo still pending Covid negativity 4. Hypertension, on Lopressor 5. Benign prostatic hypertrophy. 6. Obesity. 7. COVID-19 test result positive on 08/23 and negative on 08/27. 3rd one pending from 08/30/19 BETY RN Subjective Subjective In SR in Covid isolation. First Covid was positive on 08/23. Second was negative on 08/27. Awaiting 3rd Covid that was done 08/30/19. Had atrial fib lasting less than 10 seconds with HR 140s. Objective Last 24 Hour Vital Signs Date Time Temp Pulse Resp B/P (MAP) Pulse Ox O2 Delivery O2 Flow Rate FiO2 09/02/19 12:00 67 09/02/19 12:00 98.2 67 20 128/84 (99) 98 09/02/19 08:43 51 119/73 09/02/19 08:20 Room Air 09/02/19 08:00 64 09/02/19 08:00 96.8 70 19 130/71 (90) 98 09/02/19 04:00 51 09/02/19 04:00 96.7 73 18 119/73 (88) 97 09/02/19 00:00 98.1 67 19 124/66 (85) 96 09/02/19 00:00 53 09/01/19 21:00 Room Air 09/01/19 20:00 97.5 59 18 135/77 (96) 94 09/01/19 16:00 98.1 64 20 142/84 (103) 94 09/01/19 16:00 60 Intake and Output 09/01/19 09/02/19 19:00 07:00 Intake Total 500 ml Balance 500 ml Intake Oral 500 ml # Voids 3 2 Laboratory Tests Test 09/02/19 05:40 White Blood Count 7.6 K/UL (4.8-10.8) Red Blood Count 4.55 M/UL (4.70-6.10) L Hemoglobin 14.1 G/DL (14.2-18.0) L Hematocrit 40.7 % (42.0-52.0) L Mean Corpuscular Volume 89 FL (80-99) Mean Corpuscular Hemoglobin 30.9 PG (27.0-31.0) Mean Corpuscular Hemoglobin Concent 34.5 G/DL (32.0-36.0) Red Cell Distribution Width 11.4 % (11.6-14.8) L Platelet Count 298 K/UL (150-450) Mean Platelet Volume 7.8 FL (6.5-10.1) Neutrophils (%) (Auto) 45.0 % (45.0-75.0) Lymphocytes (%) (Auto) 39.3 % (20.0-45.0) Monocytes (%) (Auto) 10.5 % (1.0-10.0) H Eosinophils (%) (Auto) 4.2 % (0.0-3.0) H Basophils (%) (Auto) 1.0 % (0.0-2.0) Objective HEAD AND NECK: No JVD. LUNGS: Coarse rhonchi. CARDIOVASCULAR: Regular S1 and S2 with no gallop. ABDOMEN: Soft. EXTREMITIES: 1+ pitting edema. Robert Guerrero MD Sep 02, 2019 14:57
[2019-09-02 16:00] VITALS: BP 119/81
--- NOTE | 2019-09-02 19:30 | NUR ---
NURSE NOTES: Received pt and report from KILLIAN Padilla. Observed pt sitting in chair at bedside and eating. Pt is A/Ox3. 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 Pt refused IV access; MD aware. Bed is in the lowest position and locked. Call light and bedside table is within reach. No signs/symptoms of acute distress noted at this time. Will continue plan of care.
--- NOTE | 2019-09-02 19:50 | NUR ---
NURSE NOTES: Informed Dr. Funmi Colon that pt's third COVID-19 swab came back positive. No orders at this time.
[2019-09-02 20:00] VITALS: BP 147/87
[2019-09-02] MEDS: OLANZapine 10mg tab ORAL SCH (21:01)
[2019-09-02] MEDS: Tamsulosin 0.4mg cap ORAL SCH (21:01)
--- NOTE | 2019-09-02 21:56 | General Progress Note ---
Assessment/Plan Problem List: (1) Sepsis ICD Codes: A41.9 - Sepsis, unspecified organism SNOMED: 25737962 Qualifiers: Qualified Codes: A41.9 - Sepsis, unspecified organism (2) UTI (urinary tract infection) ICD Codes: N39.0 - Urinary tract infection, site not specified SNOMED: 56293364 Qualifiers: Qualified Codes: N30.00 - Acute cystitis without hematuria (3) Suspected 2019 novel coronavirus infection ICD Codes: R68.89 - Other general symptoms and signs SNOMED: 528918479 Status: progressing Assessment/Plan: dehydration azotemia needs fluids covid positive pna sepsis lyte abnormality weak psychosis Subjective ROS Limited/Unobtainable: Yes Allergies: Coded Allergies: No Known Allergies (Verified , 06/19/07) Objective Last 24 Hour Vital Signs Date Time Temp Pulse Resp B/P (MAP) Pulse Ox O2 Delivery O2 Flow Rate FiO2 09/02/19 21:07 94 147/87 09/02/19 16:00 63 09/02/19 16:00 98.6 77 20 119/81 (94) 96 09/02/19 12:00 67 09/02/19 12:00 98.2 67 20 128/84 (99) 98 09/02/19 08:43 51 119/73 09/02/19 08:20 Room Air 09/02/19 08:00 64 09/02/19 08:00 96.8 70 19 130/71 (90) 98 09/02/19 04:00 51 09/02/19 04:00 96.7 73 18 119/73 (88) 97 09/02/19 00:00 98.1 67 19 124/66 (85) 96 09/02/19 00:00 53 Intake and Output 09/01/19 09/02/19 19:00 07:00 Intake Total 500 ml Balance 500 ml Intake Oral 500 ml # Voids 3 2 Laboratory Tests 09/02/19 05:40: White Blood Count 7.6, Red Blood Count 4.55L, Hemoglobin 14.1L, Hematocrit 40.7L , Mean Corpuscular Volume 89, Mean Corpuscular Hemoglobin 30.9, Mean Corpuscular Hemoglobin Concent 34.5, Red Cell Distribution Width 11.4L, Platelet Count 298, Mean Platelet Volume 7.8, Neutrophils (%) (Auto) 45.0, Lymphocytes (%) (Auto) 39.3, Monocytes (%) (Auto) 10.5H, Eosinophils (%) (Auto) 4.2H, Basophils (%) (Auto) 1.0 Height (Feet): 5 Height (Inches): 10.00 Weight (Pounds): 219 Louisa Aburto MD Sep 02, 2019 21:56
[2019-09-03] VITALS: BP 120/65
--- NOTE | 2019-09-03 01:29 | Progress Note ---
DATE: 09/02/2019 HISTORY OF PRESENT ILLNESS: The patient is depressed, has anhedonia, weak and low energy. Able to answer the questions. MENTAL STATUS EXAMINATION: Alert and oriented to times, self, place, and situation. Mood is depressed. Affect is constricted. Congruent mood. Thought process is concrete. Thought content, no suicidal or homicidal ideation. Cognition is impaired. Insight and judgment, impaired. ASSESSMENT: Schizoaffective disorder. PLAN: Olanzapine 20 mg at bedtime and fluoxetine 20 mg. Continue current medications. Aryan Hernández M.D. DR: Adarsh JOB#: [id number] CC:
--- NOTE | 2019-09-03 01:44 | Pulmonology Progress Note ---
Assessment/Plan Assessment/Plan Pulmonary Progress Note HPI Patient is an 79-year-old man with a past medical history of hypertension and psychiatric illness. His detention has multiple patients positive for COVID19. Patient has noted cough and congestion. Denies any other complaints. He denies any chest pain. No nausea vomiting or diarrhea. Patient is very hard of hearing so history is limited. Stable pulmonary Status, on RA Seen on 09/02/2019 Allergies: No Known Allergies Past Medical History: Hypertension, COPD, DM, BPH, Umbilical Hernia and Psychiatric illness Pertinent Family History: none Social History: Denies: smoking All Other Systems: negative except mentioned in HPI Physical Exam Vital Signs Noted General Appearance: well appearing, no apparent distress, alert Head: normocephalic, atraumatic Eyes: bilateral eye PERRL, bilateral eye EOMI ENT: hearing grossly normal, normal pharynx Neck: full range of motion, supple, no meningismus Respiratory: chest non-tender, lungs clear, normal breath sounds Cardiovascular: regular rate, rhythm, no murmur Gastrointestinal: normal bowel sounds, non tender, no mass, no organomegaly, no bruit, non-distended Musculoskeletal: back normal, normal range of motion Neurologic: alert, grossly normal Impression: UTI BPH Sepsis Suspected 2019 novel coronavirus infection COPD HTN DM Psychiatric Illness Plan: IV Antibiotics started. PTAmedications O2 PRN Albuterol PRN PPX Await cultures/viral studies EKG: Rate: normal Rhythm: NSR ST Segments: no acute changes Chest X-Ray: no effusion, no pneumothorax, no acute cardiopulmonary disease, other - Atelectasis at the bases Subjective ROS Limited/Unobtainable: No Constitutional: Reports: no symptoms Gastrointestinal/Abdominal: Reports: no symptoms Psychiatric: Reports: other - refuses IV medications Allergies: Coded Allergies: No Known Allergies (Verified , 06/19/07) Objective Last 24 Hour Vital Signs Date Time Temp Pulse Resp B/P (MAP) Pulse Ox O2 Delivery O2 Flow Rate FiO2 09/03/19 00:00 97.0 84 20 120/65 (83) 95 09/02/19 21:07 94 147/87 09/02/19 21:00 Room Air 09/02/19 20:00 97.3 94 19 147/87 (107) 93 09/02/19 16:00 63 09/02/19 16:00 98.6 77 20 119/81 (94) 96 09/02/19 12:00 67 09/02/19 12:00 98.2 67 20 128/84 (99) 98 09/02/19 08:43 51 119/73 09/02/19 08:20 Room Air 09/02/19 08:00 64 09/02/19 08:00 96.8 70 19 130/71 (90) 98 09/02/19 04:00 51 09/02/19 04:00 96.7 73 18 119/73 (88) 97 Intake and Output 09/02/19 09/03/19 19:00 07:00 Intake Total 120 ml Output Total 1200 ml Balance -1080 ml Intake Oral 120 ml Output Urine Total 1200 ml # Voids 3 General Appearance: no acute distress HEENT: mucous membranes moist Abdomen: soft, non tender Extremities: no edema Neurologic/Psychiatric: alert, responsive Laboratory Tests 09/02/19 05:40: White Blood Count 7.6, Red Blood Count 4.55L, Hemoglobin 14.1L, Hematocrit 40.7L , Mean Corpuscular Volume 89, Mean Corpuscular Hemoglobin 30.9, Mean Corpuscular Hemoglobin Concent 34.5, Red Cell Distribution Width 11.4L, Platelet Count 298, Mean Platelet Volume 7.8, Neutrophils (%) (Auto) 45.0, Lymphocytes (%) (Auto) 39.3, Monocytes (%) (Auto) 10.5H, Eosinophils (%) (Auto) 4.2H, Basophils (%) (Auto) 1.0 Current Medications Medications (Trade) Dose Ordered Sig/Abilio Route PRN Reason Start Time Stop Time Status Last Admin Dose Admin Acetaminophen (Tylenol) 650 mg EVERY 6 HOURS PRN ORAL Temp >100.5 08/25/19 00:15 09/24/19 00:14 08/27/19 10:26 Albuterol Sulfate (Proventil MDI) 2 puff Q4H PRN INH Shortness of Breath 08/25/19 00:15 11/23/19 00:14 Enoxaparin Sodium (Lovenox) 40 mg DAILY SUBQ 08/26/19 11:00 11/24/19 10:59 09/02/19 08:44 Fluoxetine HCl (PROzac) 20 mg DAILY ORAL 08/26/19 09:00 09/25/19 08:59 09/02/19 08:43 Metoprolol Tartrate (Lopressor) 25 mg Q12HR ORAL 08/27/19 21:00 11/25/19 20:59 09/02/19 21:07 Olanzapine (ZyPREXA) 20 mg BEDTIME ORAL 08/25/19 21:00 10/09/19 20:59 09/02/19 21:01 Tamsulosin HCl (Flomax) 0.4 mg QHS ORAL 08/25/19 21:00 09/24/19 20:59 09/02/19 21:01 Karthikeyan Morris MD Sep 03, 2019 01:44
[2019-09-03 04:00] VITALS: BP 126/77
--- NOTE | 2019-09-03 06:01 | Hematology/Onc Progress Note ---
Assessment/Plan Assessment/Plan Assessment and Recs: # Pancytopenia - potential causes multifactorial, evaluate liver and viral etiologies to begin, also could be related to underlying medications patient has received. Likely COVID19++ related --> Hep panel and HIV ordered --> NEG --> US abd to evaluate for cirrhosis and hsm ordered as needed --> Peripheral smear ordered to evaluate for blasts /schistocytes --> is wnl --> abx and other meds have been reviewed --> ok for ppx if plt >50k w/ either heparin or lovenox --> Transfuse if Plt < 20k and fever, or if Plt < 10k without fever --> wbc trend 5-->4-->7 -> plt trend 134-->120k-->133-->150-->170 --> abx: amoxicillin --> OFF # Anemia due to chronic disease --> trend as needed hgb 13-->14 --> no evidence of hemolysis is noted # Sepsis r/o infection --> abx as needed # UTI (urinary tract infection) --> id eval --> abx given # Suspected 2019 novel coronavirus infection --> abx, per id, o2,duonebs # Psych d/o --> per Dr. Hernández # Dvt ppx lovenox sq The timing of this note does not necessarily reflect the time of the patient was seen. Greatly appreciate consultation. Subjective HEENT: Denies: no symptoms, eye pain, blurred vision, tearing, double vision, ear pain, ear discharge, nose pain, nose congestion, throat pain, throat swelling, mouth pain, mouth swelling, other Cardiovascular: Denies: no symptoms, chest pain, edema, irregular heart rate, lightheadedness, palpitations, syncope, other Respiratory: Denies: no symptoms, cough, shortness of breath, SOB with excertion, SOB at rest, sputum, wheezing, other Gastrointestinal/Abdominal: Denies: no symptoms, abdomen distended, abdominal pain, black stools, tarry stools, blood in stool, constipated, diarrhea, difficulty swallowing, nausea, poor appetite, poor fluid intake, rectal bleeding , vomiting, other Genitourinary: Denies: no symptoms, burning, discharge, frequency, flank pain, hematuria, incontinence, pain, urgency, other Neurologic/Psychiatric: Denies: no symptoms, anxiety, depressed, emotional problems, headache, numbness, paresthesia, pre-existing deficit, seizure, tingling, tremors, weakness, other Endocrine: Denies: no symptoms, excessive sweating, flushing, intolerance to cold, intolerance to heat, increased hunger, increased thirst, increased urine, unexplained weight gain, unexplained weight loss, other Hematologic/Lymphatic: Denies: no symptoms, anemia, easy bleeding, easy bruising, adenopathy, other Allergies: Coded Allergies: No Known Allergies (Verified , 06/19/07) Subjective 08/25 labs noted, cbc is pending from am, lower fever 08/26 seen by crds and psych, on zyprexa, less agitated overnight 08/27 no bleeding, labs reviewed, no night sweats, on lopressor for high bp 08/28 on amox, awaiting le duplex and us abd, no acute distress 08/29 no events, no bleeding, no night sweats, labs noted, cbc ordered 08/31 labs noted, no bleeding, anthony rn, with afib tachy run overnight 09/01 labs have been reviewed, no bleeding, meds noted, hgb 13.6 09/02 bp has improved, refusing line placement, no night sweats, labs noted Objective Objective Current Medications Medications (Trade) Dose Ordered Sig/Abilio Route PRN Reason Start Time Stop Time Status Last Admin Dose Admin Acetaminophen (Tylenol) 650 mg EVERY 6 HOURS PRN ORAL Temp >100.5 08/25/19 00:15 09/24/19 00:14 08/27/19 10:26 Albuterol Sulfate (Proventil MDI) 2 puff Q4H PRN INH Shortness of Breath 08/25/19 00:15 11/23/19 00:14 Enoxaparin Sodium (Lovenox) 40 mg DAILY SUBQ 08/26/19 11:00 11/24/19 10:59 09/02/19 08:44 Fluoxetine HCl (PROzac) 20 mg DAILY ORAL 08/26/19 09:00 09/25/19 08:59 09/02/19 08:43 Metoprolol Tartrate (Lopressor) 25 mg Q12HR ORAL 08/27/19 21:00 11/25/19 20:59 09/02/19 21:07 Olanzapine (ZyPREXA) 20 mg BEDTIME ORAL 08/25/19 21:00 10/09/19 20:59 09/02/19 21:01 Tamsulosin HCl (Flomax) 0.4 mg QHS ORAL 08/25/19 21:00 09/24/19 20:59 09/02/19 21:01 Last 24 Hour Vital Signs Date Time Temp Pulse Resp B/P (MAP) Pulse Ox O2 Delivery O2 Flow Rate FiO2 09/03/19 04:00 96.8 68 19 126/77 (93) 95 09/03/19 04:00 50 09/03/19 00:00 55 09/03/19 00:00 97.0 84 20 120/65 (83) 95 09/02/19 21:07 94 147/87 09/02/19 21:00 Room Air 09/02/19 20:00 68 09/02/19 20:00 97.3 94 19 147/87 (107) 93 09/02/19 16:00 63 09/02/19 16:00 98.6 77 20 119/81 (94) 96 09/02/19 12:00 67 09/02/19 12:00 98.2 67 20 128/84 (99) 98 09/02/19 08:43 51 119/73 09/02/19 08:20 Room Air 09/02/19 08:00 64 09/02/19 08:00 96.8 70 19 130/71 (90) 98 09/02/19 04:00 51 09/02/19 04:00 96.7 73 18 119/73 (88) 97 09/02/19 00:00 98.1 67 19 124/66 (85) 96 09/02/19 00:00 53 09/01/19 21:00 Room Air 09/01/19 20:00 97.5 59 18 135/77 (96) 94 09/01/19 16:00 98.1 64 20 142/84 (103) 94 09/01/19 16:00 60 09/01/19 12:00 97.5 74 20 151/72 (98) 93 09/01/19 12:00 58 09/01/19 10:49 56 127/67 09/01/19 09:00 Room Air 09/01/19 08:00 97.9 65 20 127/67 (87) 94 09/01/19 08:00 56 Intake and Output 09/02/19 09/03/19 19:00 07:00 Intake Total 120 ml Output Total 1200 ml Balance -1080 ml Intake Oral 120 ml Output Urine Total 1200 ml # Voids 3 Labs Test 09/01/19 06:10 09/02/19 05:40 White Blood Count 6.4 K/UL (4.8-10.8) 7.6 K/UL (4.8-10.8) Red Blood Count 4.30 M/UL (4.70-6.10) 4.55 M/UL (4.70-6.10) Hemoglobin 13.6 G/DL (14.2-18.0) 14.1 G/DL (14.2-18.0) Hematocrit 38.5 % (42.0-52.0) 40.7 % (42.0-52.0) Mean Corpuscular Volume 90 FL (80-99) 89 FL (80-99) Mean Corpuscular Hemoglobin 31.6 PG (27.0-31.0) 30.9 PG (27.0-31.0) Mean Corpuscular Hemoglobin Concent 35.2 G/DL (32.0-36.0) 34.5 G/DL (32.0-36.0) Red Cell Distribution Width 11.2 % (11.6-14.8) 11.4 % (11.6-14.8) Platelet Count 246 K/UL (150-450) 298 K/UL (150-450) Mean Platelet Volume 7.5 FL (6.5-10.1) 7.8 FL (6.5-10.1) Neutrophils (%) (Auto) 41.3 % (45.0-75.0) 45.0 % (45.0-75.0) Lymphocytes (%) (Auto) 40.1 % (20.0-45.0) 39.3 % (20.0-45.0) Monocytes (%) (Auto) 12.5 % (1.0-10.0) 10.5 % (1.0-10.0) Eosinophils (%) (Auto) 4.8 % (0.0-3.0) 4.2 % (0.0-3.0) Basophils (%) (Auto) 1.3 % (0.0-2.0) 1.0 % (0.0-2.0) Height (Feet): 5 Height (Inches): 10.00 Weight (Pounds): 219 Objective Vitals: reviewed General: NAD HEENT: nc, at Neck: supple Chest: clear breath sounds bilaterally Cardiovascular: RRR, no s3, s4 Abdomen: soft, nontender, nd Extremities: no cce, normal range of motion Neuro: alert and oriented Anival Peñaloza MD Sep 03, 2019 06:01
--- NOTE | 2019-09-03 07:48 | NUR ---
HAND-OFF: Report given to KILLIAN Patino. Plan of care endorsed.
[2019-09-03 08:00] VITALS: BP 150/83
[2019-09-03] MEDS: Enoxaparin 40mg Inj SUBQ SCH (08:24)
--- NOTE | 2019-09-03 10:00 | NUR ---
RD ASSESSMENT & RECOMMENDATIONS SEE CARE ACTIVITY FOR COMPLETE ASSESSMENT DAILY ESTIMATED NEEDS: Needs based on Sepsis, advanced age [age]kg abw 25-30 kcals/kg 9419-3337 total kcals 1-2 g protein/kg 81-163 g total protein 20-30ml/kcal mL/kg 4386-3767 total fluid mLs NUTRITION DIAGNOSIS: Altered nutrition related lab values r/t hyperglycemia, h/o DM as evidenced by BG 128-208. CURRENT DIET: [facility] PO DIET RECOMMENDATIONS: Maintain [facility] diet ADDITIONAL RECOMMENDATIONS: 1) Monitor po intake, need for snacks 2) Monitor texture acceptance, need for modifications 3) Rec bed side BG testing; check HgA1C -> h/o DM Addendum: 09/03/19 at [address] 4) Monitor BM regularity: last recorded 08/26 -> add stool softener?
--- NOTE | 2019-09-03 10:43 | NUR ---
DISCHARGE PLANNING [employer]GANIZING DISCHARGE PATIENT WILL RETURN TO [facility] TO OBTAIN ID CLEARANCE FROM DR MAYO FOR DISCHARGE BRAND PL[employer]NER FAXED CLINICALS TO [facility] T: [phone] WAITING FOR CLEARANCE AND ROOM NUMBER
--- NOTE | 2019-09-03 11:24 | Cardiac Electrophysiology PN ---
Assessment/Plan Assessment/Plan 1. Sinus tachycardia due to fever and sepsis. Heart rate is better on Lopressor 2. Short run of atrial fib with RVR on Lopressor 25 bid 3. NSVT 9 beats. Echo still pending Covid negativity 4. Hypertension, on Lopressor 5. Benign prostatic hypertrophy. 6. Obesity. 7. COVID-19 test result positive on 08/23 and negative on 08/27. 3rd one from 08/30/[address] Isaiah ALBERT RN Subjective Subjective In SR in Covid isolation. First Covid was positive on 08/23. Second was negative on 08/27. 3rd Covid that was done 08/30/19 is positive again No more atrial fib Objective Last 24 Hour Vital Signs Date Time Temp Pulse Resp B/P (MAP) Pulse Ox O2 Delivery O2 Flow Rate FiO2 09/03/19 09:00 Room Air 09/03/19 08:22 87 150/83 09/03/19 08:00 98.2 87 20 150/83 (105) 96 09/03/19 08:00 60 09/03/19 04:00 96.8 68 19 126/77 (93) 95 09/03/19 04:00 50 09/03/19 00:00 55 09/03/19 00:00 97.0 84 20 120/65 (83) 95 09/02/19 21:07 94 147/87 09/02/19 21:00 Room Air 09/02/19 20:00 68 09/02/19 20:00 97.3 94 19 147/87 (107) 93 09/02/19 16:00 63 09/02/19 16:00 98.6 77 20 119/81 (94) 96 09/02/19 12:00 67 09/02/19 12:00 98.2 67 20 128/84 (99) 98 Intake and Output 09/02/19 09/03/19 19:00 07:00 Intake Total 120 ml 240 ml Output Total 1200 ml Balance -1080 ml 240 ml Intake Oral 120 ml 240 ml Output Urine Total 1200 ml # Voids 3 2 Objective HEAD AND NECK: No JVD. LUNGS: Coarse rhonchi. CARDIOVASCULAR: Regular S1 and S2 with no gallop. ABDOMEN: Soft. EXTREMITIES: 1+ pitting edema. Robert Guerrero MD Sep 03, 2019 11:24
--- NOTE | 2019-09-03 11:29 | NUR ---
NURSE NOTES: Patient cleared by Dr Funmi Colon of ID for discharge.
[2019-09-03 11:30] VITALS: BP 130/82
--- NOTE | 2019-09-03 11:59 | Infectious Diseases Prog Note ---
Assessment/Plan Assessment/Plan IMPRESSION: 1. COVID-19 disease Positive=08/23, 08/29 Negative=08/27 2. Strep group B UTI. 3. BPH. 4. Hypertension. 5. Obesity. 6. Schizoaffective disorder, depressive type RECOMMENDATION: Will f/u COVID19 test Agree with discharge Subjective ROS Limited/Unobtainable: Yes Constitutional: Denies: fever Allergies: Coded Allergies: No Known Allergies (Verified , 06/19/07) Objective Vital Signs Last 24 Hour Vital Signs Date Time Temp Pulse Resp B/P (MAP) Pulse Ox O2 Delivery O2 Flow Rate FiO2 09/03/19 11:30 98.7 72 21 130/82 (98) 98 09/03/19 09:00 Room Air 09/03/19 08:22 87 150/83 09/03/19 08:00 98.2 87 20 150/83 (105) 96 09/03/19 08:00 60 09/03/19 04:00 96.8 68 19 126/77 (93) 95 09/03/19 04:00 50 09/03/19 00:00 55 09/03/19 00:00 97.0 84 20 120/65 (83) 95 09/02/19 21:07 94 147/87 09/02/19 21:00 Room Air 09/02/19 20:00 68 09/02/19 20:00 97.3 94 19 147/87 (107) 93 09/02/19 16:00 63 09/02/19 16:00 98.6 77 20 119/81 (94) 96 09/02/19 12:00 67 09/02/19 12:00 98.2 67 20 128/84 (99) 98 Height (Feet): 5 Height (Inches): 10.00 Weight (Pounds): 219 General Appearance: no acute distress HEENT: mucous membranes moist Respiratory/Chest: lungs clear Cardiovascular: normal rate Abdomen: soft, non tender Extremities: no edema Neurologic/Psychiatric: other - sleeping Current Medications Medications (Trade) Dose Ordered Sig/Abilio Route PRN Reason Start Time Stop Time Status Last Admin Dose Admin Acetaminophen (Tylenol) 650 mg EVERY 6 HOURS PRN ORAL Temp >100.5 08/25/19 00:15 09/24/19 00:14 08/27/19 10:26 Albuterol Sulfate (Proventil MDI) 2 puff Q4H PRN INH Shortness of Breath 08/25/19 00:15 11/23/19 00:14 Enoxaparin Sodium (Lovenox) 40 mg DAILY SUBQ 08/26/19 11:00 11/24/19 10:59 09/03/19 08:24 Fluoxetine HCl (PROzac) 20 mg DAILY ORAL 08/26/19 09:00 09/25/19 08:59 09/03/19 08:22 Metoprolol Tartrate (Lopressor) 25 mg Q12HR ORAL 08/27/19 21:00 11/25/19 20:59 09/03/19 08:22 Olanzapine (ZyPREXA) 20 mg BEDTIME ORAL 08/25/19 21:00 10/09/19 20:59 09/02/19 21:01 Tamsulosin HCl (Flomax) 0.4 mg QHS ORAL 08/25/19 21:00 09/24/19 20:59 09/02/19 21:01 Toni Colon MD Sep 03, 2019 11:59
--- NOTE | 2019-09-03 13:30 | NUR ---
DISCHARGE PLANNING CLEARED BY DR MAYO FOR DISCHARGE KAREN AT [facility] HAS ACCEPTED PATIENT BACK TO ROOM 204C MESSAGE LEFT FOR DR HERNANDEZ REQUESTING DISCHARGE ORDER
--- NOTE | 2019-09-03 14:55 | NUR ---
*-*DISCHARGE PLANNED*-* PATIENT HAS BEEN ACCEPTED AND WILL BE DISCHARGED BACK TO: [facility] P: [phone] FOR NURSE TO NURSE REPORT ROOM# 204.[facility] TRANSPORT[facility] SET FOR 4:15PM S/W ULI [id number]
[2019-09-03 16:00] VITALS: BP 131/72
--- NOTE | 2019-09-03 18:34 | NUR ---
NURSE NOTES: Patient discharged to [facility] via ambulance. Interfacility report given to Nora DAILY. ID band removed. Belongings accounted for. No new skin issues noted. Discharge instructions given, verbalized understanding. Transported by ambulance personnel.
--- NOTE | 2019-09-03 21:23 | Pulmonology Progress Note ---
Assessment/Plan Assessment/Plan Pulmonary Progress Note HPI Patient is an 79-year-old man with a past medical history of hypertension and psychiatric illness. 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 Patient has noted cough and congestion. Denies any other complaints. He denies any chest pain. No nausea vomiting or diarrhea. Patient is very hard of hearing so history is limited. Stable pulmonary Status, on RA Seen earlier Allergies: No Known Allergies Past Medical History: Hypertension, COPD, DM, BPH, Umbilical Hernia and Psychiatric illness Pertinent Family History: none Social History: Denies: smoking All Other Systems: negative except mentioned in HPI Physical Exam Vital Signs Noted General Appearance: well appearing, no apparent distress, alert Head: normocephalic, atraumatic Eyes: bilateral eye PERRL, bilateral eye EOMI ENT: hearing grossly normal, normal pharynx Neck: full range of motion, supple, no meningismus Respiratory: chest non-tender, lungs clear, normal breath sounds Cardiovascular: regular rate, rhythm, no murmur Gastrointestinal: normal bowel sounds, non tender, no mass, no organomegaly, no bruit, non-distended Musculoskeletal: back normal, normal range of motion Neurologic: alert, grossly normal Impression: UTI BPH Sepsis Suspected 2019 novel coronavirus infection COPD HTN DM Psychiatric Illness Plan: IV Antibiotics started. PTAmedications O2 PRN Albuterol PRN PPX Await cultures/viral studies EKG: Rate: normal Rhythm: NSR ST Segments: no acute changes Chest X-Ray: no effusion, no pneumothorax, no acute cardiopulmonary disease, other - Atelectasis at the bases Subjective ROS Limited/Unobtainable: No Constitutional: Denies: fever Gastrointestinal/Abdominal: Reports: no symptoms Psychiatric: Reports: other - refuses IV medications Allergies: Coded Allergies: No Known Allergies (Verified , 06/19/07) Objective Last 24 Hour Vital Signs Date Time Temp Pulse Resp B/P (MAP) Pulse Ox O2 Delivery O2 Flow Rate FiO2 09/03/19 16:00 53 09/03/19 16:00 96.6 80 19 131/72 (91) 98 09/03/19 12:00 51 09/03/19 11:30 98.7 72 21 130/82 (98) 98 09/03/19 09:00 Room Air 09/03/19 08:22 87 150/83 09/03/19 08:00 98.2 87 20 150/83 (105) 96 09/03/19 08:00 60 09/03/19 04:00 96.8 68 19 126/77 (93) 95 09/03/19 04:00 50 09/03/19 00:00 55 09/03/19 00:00 97.0 84 20 120/65 (83) 95 Intake and Output 09/02/19 09/03/19 19:00 07:00 Intake Total 120 ml 240 ml Output Total 1200 ml Balance -1080 ml 240 ml Intake Oral 120 ml 240 ml Output Urine Total 1200 ml # Voids 3 2 General Appearance: no acute distress HEENT: mucous membranes moist Abdomen: soft, non tender Extremities: no edema Neurologic/Psychiatric: other - sleeping Karthikeyan Morris MD Sep 03, 2019 21:23
--- NOTE | 2019-09-04 17:02 | Discharge Summary ---
Discharge Summary Discharge Summary _ DATE OF ADMISSION: 08/24/2019 DATE OF DISCHARGE: 09/03/2019 DISCHARGED BY: Dr. Aburto REASON FOR ADMISSION: 79 years old male with past medical history of hypertension, psychiatric disorder, [facility], was sent for evaluation due to fever for 1 day. Patient received Tylenol at the nursing facility prior to ER visit. half-way had multiply patients positive for COVID-19. Patient also reported cough and congestion. Upon evaluation patient was febrile , pulse oximetry was stable on room air. Laboratory work-up revealed no leukocytosis ,stable hemoglobin, hematocrit. Platelet count 134. Stable electrolytes. BUN 22, creatinine 1.7. Glucose 189. Lactic acid 1.3. Troponin negative. Urinalysis revealed pyuria , moderate bacteria , +1 protein. Chest x-ray demonstrated no evidence of acute cardiopulmonary pathology. In emergency department patient pancultured , started on empiric antibiotic, swabbed for suspected COVID-19 infection and admitted for further management. CONSULTANTS: reroller hand Dr. Levy pulmonary Dr. Morris ID specialist Dr. Toni Colon psychiatrist Dr. belkys [place] [facility] COURSE: Patient admitted to isolation room. Patient started on empiric antibiotics. Blood cultures were negative. Urine culture revealed strep agalactiae group B . SARS-CoV-2 by PCR on 08/23 was detected. Repeated SARS-CoV- 2 by PCR on 08/27 was not detected, and repeated SARS-CoV-2 by PCR on was detected. Patient continued to be on isolation. Patient completed treatment for urinary tract infection. No leukocytosis , fevers resolved. Patient noted to have sinus tachycardia on telemetry along with a short run of atrial fibrillation with rapid ventricular response. Patient started on beta-belle . Heart rate improved. Patient also demonstrated nonsustained ventricular tachycardia of 9 beats. Unable to perform ECHO due to isolation. Blood pressure was controlled with Lopressor. Blood pressure prior to discharge 131/72. Sinus tachycardia resolved. Pulse oximetry remained stable on room air. Albuterol MDI was on board as needed. DVT prophylaxis provided. Renal parameters and electrolytes were closely monitored. Electrolytes corrected as needed, and nephrotoxins were avoided. Creatinine from 1.7 down to 1.4. Patient noted to have thrombocytopenia. Hepatitis panel was negative , HIV test was nonreactive. Counts were closely monitored, prior to discharge platelet count returned to normal 298. Per psychiatrist, patient had schizoaffective disorder. .Psychiatric medication regimen was optimized. Patient clinically stabilized and was ready for [facility] for [facility] of care. FINAL DIAGNOSES: Sepsis Confirmed COVID-19 infection UTI with Strep group B, s/p teratment Hypertension COPD BPH Sinus tachycardia due to fever and sepsis -resolved Short run of atrial fibrillation with RVR -resolved Nonsustained ventricular tachycardia of 9 beat Obesity Schizoaffective disorder Thrombocytopenia DISCHARGE MEDICATIONS: See Medication Reconciliation list. DISCHARGE INSTRUCTIONS: Patient was [facility] to the [facility]. Follow up with medical doctor at the facility. I have been assigned to dictate discharge summary for this account. I was not involved in the patient's management. Leona Pineda NP Sep 04, 2019 17:02
== END 2019-09-03 18:40 | DRG 871 ==
LOC: EDBD 20:51 → EMR 21:02 → 2E 22:45 → EDBEDREQ 23:23
DX: A41.89 Other specified sepsis (principal); U07.1 COVID-19; N39.0 Urinary tract infection, site not specified; I47.2 Ventricular tachycardia; D61.818 Other pancytopenia; B95.1 Streptococcus, group B, as the cause of diseases classified elsewhere; I10 Essential (primary) hypertension; J44.9 Chronic obstructive pulmonary disease, unspecified; N40.0 Benign prostatic hyperplasia without lower urinary tract symptoms; I48.91 Unspecified atrial fibrillation; D69.6 Thrombocytopenia, unspecified; E66.9 Obesity, unspecified; E11.9 Type 2 diabetes mellitus without complications; D63.8 Anemia in other chronic diseases classified elsewhere; F25.9 Schizoaffective disorder, unspecified
CPT/HCPCS: 36415; 71045; 80048; 80053; 81003; 82550; 83605; 83690; 83735; 83880; 84100; 84484; 85025; 85610; 85730; 86703; 86705; 86709; 86803; 87040; 87086; 87340; 87635; 93005; 94664; 96361; 96365; 96367; 99291; J7030